=== PATIENT | male | born 1935 | race Caucasian/White ===

== ENCOUNTER 2017-09-28 07:50 | Day surgery (SDC) | payer OTHER, BC ==
[2017-09-27 11:11] VITALS: BMI 29.0
[~2017-09-28 07:50] MED LIST: LIDOCAINE HCL 2% JELLY 10 ML CARTRIDGE TP ONE
[2017-09-28] MEDS ORDERED: MIDAZOLAM HCL 2 MG/2 ML SINGLE DOSE VIAL ONE ×2 (10:32)
[2017-09-28] MEDS ORDERED: ALBUTEROL SO4 18 GM HFA INHALER IH ONE (10:32)
[2017-09-28] MEDS ORDERED: LEVOFLOXACIN 500 MG IVPB 500 MG/100 ML BAG IVPB ONE (10:44)
[2017-09-28] MEDS ORDERED: LEVOFLOXACIN 500 MG PREMIX BAG IVPB ONE (10:50)
--- NOTE | 2017-09-28 11:50 | OP ---
Operative Note - Note: Operative Date: 09/28/17 Pre-Operative Diagnosis: bladder tumor-overlapping sites Operation: TURBT Findings: multiple papillay tumors Post-Operative Diagnosis: Same as Pre-op Surgeon: Abran Gerardo Anesthesiologist/ELECTRICAL PROSPECTING SUPERVISOR: Sylvain Tan Anesthesia: Spinal Specimens Removed: bladder tumor Estimated Blood Loss (mls): 5 Operative Report Dictated: Yes
[2017-09-28] MEDS ORDERED: ONDANSETRON 4 MG/2 ML VIAL ONE (11:54)
[2017-09-28] MEDS ORDERED: ONDANSETRON 4 MG/2 ML VIAL IVPUSH PRN (11:59)
[2017-09-28] MEDS ORDERED: PROMETHAZINE HCL 25 MG/1 ML VIAL IVPUSH PRN (11:59)
[2017-09-28] MEDS ORDERED: LACTATED RINGERS SOLUTION 1,000 ML IV SCH (12:00)
[2017-09-28] MEDS ORDERED: ELECTROLYTE-148 SOLN 1,000 ML IV SCH (12:00)
[2017-09-28] MEDS ORDERED: oxyCODONE HCL 5 MG TABLET PO PRN (13:01)
--- NOTE | 2017-09-28 13:21 | OP ---
DATE OF OPERATION: 09/28/2017 PREOPERATIVE DIAGNOSIS: Malignant neoplasm of the bladder, overlapping sites. POSTOPERATIVE DIAGNOSIS: Malignant neoplasm of the bladder, overlapping sites. PROCEDURE: Transurethral resection of bladder tumor. SURGEON: Rocco Clarke MD INDICATION: The patient is an 82-year-old male who underwent cystoscopy for hematuria and was noted to have multiple bladder tumors in the bladder. After treatment options were reviewed, the patient elected to undergo TURBT. The risks, benefits and alternatives were discussed. DESCRIPTION OF PROCEDURE: The patient was taken to the OR and placed supine on the operating table. After cardiac monitoring had been administered, spinal anesthetic was then given. He was prepped and draped in the dorsal lithotomy position. A 26 sheath resectoscope was inserted into the urethra without difficulty. Anterior urethra normal. Prostatic urethra was 3 cm and visually occlusive status post TUR defect. The bladder was then visualized. There was one very large tumor on the posterior wall of the bladder and multiple small tumors on the anterior wall of the bladder. First, the large tumor was resected and then the base fulgurated. Then the other tumors were resected as well and their bases fulgurated. When all the tumor was resected, the chips were all removed with the Vetr evacuator and sent to Pathology for analysis. Repeat cystoscopy noted no evidence of any residual tumor. All bases of tumors were fulgurated, and there was no evidence of any active bleeding. Bilateral ureteral orifices were seen in their normal anatomic position. The resectoscope was then removed, and a 22-Turkish Manzanares was then placed to straight drainage. Pennock-tinged urine was retrieved. The patient was awakened from anesthesia and transferred to Recovery in stable condition. There were no complications. Estimated blood loss was 5 mL. ROCCO CLARKE M.D. [id number]
[2017-09-28 18:15] VITALS: BP 157/73; PULSE 78; TEMP 97.9
--- NOTE | 2017-09-29 11:46 | PATH ---
Surgical Pathology Report Patient Name: ADELE ROMERO [facility]. Rec. #: [id number] /Age/Gender: 1935 (Age: 82) / M Account: [id number] Location: [facility] SURGICAL Taken: 09/28/2017 Received: 09/28/2017 Reported: 09/29/2017 Physicians: Abran Gerardo M.D. Specimen(s) Received BLADDER TISSUE Clinical History Preoperative diagnosis: Malignant neoplasm of overlapping site Final Diagnosis BLADDER, TUR: NON-INVASIVE LOW GRADE PAPILLARY UROTHELIAL CARCINOMA. NO MUSCULARIS PROPRIA/DETRUSOR MUSCLE IDENTIFIED. NO FLAT UROTHELIAL CARCINOMA IN SITU IDENTIFIED. Electronically Signed Mook Vo M.D. Gross Description Received in formalin labeled "bladder tissue," is a 2.4 x 2.3 x 0.4 cm aggregate of luu soft tissue fragments. The formalin is filtered and the specimen is entirely submitted in one cassette. /09/28/2017 saudi09/28/2017
== END 2017-09-28 18:17 | disposition home or self-care (01) ==
LOC: JASU-SURG 07:50
PROVIDERS: ATTEND Urology
PROC: 0T5B8ZZ Destruction of Bladder, Via Natural or Artificial Opening Endoscopic (ICD-10-PCS; principal; 2017-09-28 09:30)
DX: C67.8 Malignant neoplasm of overlapping sites of bladder (principal)
CPT/HCPCS: 88307-TC; 94760

== ENCOUNTER 2018-01-25 18:51 | Inpatient (IN) | payer OTHER, BC ==
[2018-01-25] MEDS ORDERED: SODIUM CHLORIDE 1,000 ML IV STA (19:11)
--- NOTE | 2018-01-25 19:11 | PDOC ---
Rapid Medical Evaluation Time Seen by Provider: 01/25/18 18:59 Medical Evaluation: Allergies Allergy/AdvReac Type Severity Reaction Status Date / Time No Known Allergies Allergy Verified 01/25/18 18:57 01/25/18 18:59 Pt c/o: sob since 3 days, hx copd, subjective fever Pt on brief exam: febrile,, tachy, rhonchi to rt lower base Pt ordered for: sepsis w/u, Pt to proceed to the ED Discharge Disposition - Diagnosis Sepsis, COPD exacerbation - Referrals - Patient Instructions - Post Discharge Activity
[2018-01-25] MEDS ORDERED: ALBUTEROL SO4 2.5/IPRATROPIUM 0.5 INH SOL 3 ML VIAL.NEB. NEB ONE ×2 (19:13→19:32)
[2018-01-25] MEDS ORDERED: ACETAMINOPHEN 1000 MG/100 ML VIAL (NON FORMULARY) IVPB ONE (19:13)
[2018-01-25] MEDS ORDERED: ACETAMINOPHEN INJECTION 100 ML IVPB ONE (19:33)
[2018-01-25 19:40] LABS: BASO % 0.4 % (0-2.0); EOS % 0.3 % (0-4.5); HEMATOCRIT 45.6 % (35.4-49); HEMOGLOBIN 15.6 GM/dL (11.7-16.9); MCH 29.2 pg (25.7-33.7); MCHC 34.2 g/dl (32.0-35.9); MEAN CELL VOLUME 85.3 fl (80-96); MEAN PLT VOLUME 8.8 fl (7.5-11.1); MONO % 7.1 % (3.8-10.2); NEUT % 79.2 % (42.8-82.8); PLATELET COUNT 214 K/MM3 (134-434); RBC 5.35 M/mm3 (4.00-5.60); RDW 14.1 % (11.9-15.9)
[2018-01-25 19:46] LABS: VENOUS PC02 33.6 mmHg (38-52); VENOUS PH 7.44 (7.32-7.42); VENOUS PO2 47.1 mmHg (28-48)
[2018-01-25 19:57] LABS: INR 1.17 (0.82-1.09); PROTHROMBIN TIME (PATIENT) 13.2 SEC (9.7-13.0)
[2018-01-25 19:59] LABS: ACTIVATED PTT 31.9 SECONDS (26.9-34.4)
[2018-01-25 20:07] LABS: ALBUMIN 3.7 g/dl (3.4-5.0); ALK PHOS 74 U/L (45-117); ANION GAP 11 (8-16); BILIRUBIN,TOTAL 1.9 mg/dL (0.2-1.0); BLOOD UREA NITROGEN 14 mg/dL (7-18); CALCIUM 9.3 mg/dL (8.5-10.1); CHLORIDE 105 mmol/L (98-107); CO2 22 mmol/L (21-32); CREATININE 1.1 mg/dL (0.7-1.3); GLUCOSE,RANDOM 142 mg/dL (74-106); POTASSIUM 4.2 mmol/L (3.5-5.1); SGOT/AST 14 U/L (15-37); SGPT/ALT 16 U/L (12-78); SODIUM 138 mmol/L (136-145)
[2018-01-25] MEDS ORDERED: CEFTRIAXONE 1 GM in DEXTROSE 5%-WATER - 100 ML IVPB ONE (20:13)
[2018-01-25] MEDS ORDERED: AZITHROMYCIN IVPB 500 MG in DEXTROSE 5%-WATER - 250 ML IVPB ONE (20:13)
[2018-01-25] MEDS ORDERED: AZITHROMYCIN IVPB 250 ML IVPB ONE (20:28)
[2018-01-25] MEDS ORDERED: CEFTRIAXONE 1 GM/50 ML BAG ONE (20:28)
--- NOTE | 2018-01-25 20:58 | PDOC ---
History of Present Illness - General History Source: Patient Exam Limitations: No Limitations - History of Present Illness Initial Comments: 01/25/18 21:01 The patient is an 82 year old male with a significant past medical history of COPD (on oxygen at home), HLD, and bladder cancer who presents to the emergency department for evaluation of a 3 day history of COPD exacerbation. The patient reports worsening shortness of breath over the last 3 days. He reports associated symptoms of generalized weakness and fever. He reports he took spiriva and advair today with no alleviation. The patient admits to taking an old prescription of azithromycin (2 yesterday, 1 today). His daughter was concerned with his shortness of breath which prompted his visit to the ED. The patient denies chest pain, headache, and dizziness. Denies chills, nausea, vomiting, diarrhea, and constipation. Denies dysuria, frequency, urgency, and hematuria. Allergies: NKA Past surgical history: Hernia repair Social history: Former smoker 1994. Reported alcohol consumption. No reported drug use. PCP: Dr. Barton Pulm: Dr. Rogers <Mera Koo - Last Filed: 01/25/18 21:00> <Cecelia Alba - Last Filed: 01/25/18 21:35> - General Chief Complaint: Shortness of Breath Stated Complaint: SHORTNESS OF BREATH Time Seen by Provider: 01/25/18 18:59 Past History <Mera Koo - Last Filed: 01/25/18 21:00> - Past Medical History Anemia: No Asthma: No Cancer: Yes (BLADDER) Cardiac Disorders: No CVA: No COPD: Yes CHF: No Dementia: No Diabetes: No GI Disorders: No Disorders: No HTN: No Hypercholesterolemia: Yes Liver Disease: No Seizures: No Thyroid Disease: No - Surgical History Abdominal Surgery: Yes (HERNIA REPAIR) Appendectomy: Yes - Suicide/Smoking/Psychosocial Hx Smoking History: Former smoker Have you smoked in the past 12 months: No If you are a former smoker, when did you quit?: 1994 Information on smoking cessation initiated: No 'Breaking Loose' booklet given: 01/13/15 Hx Alcohol Use: No Drug/Substance Use Hx: No Substance Use Type: Alcohol Hx Substance Use Treatment: No <Cecelia Alba - Last Filed: 01/25/18 21:35> - Past Medical History Allergies/Adverse Reactions: Allergies Allergy/AdvReac Type Severity Reaction Status Date / Time No Known Allergies Allergy Verified 01/25/18 18:57 Home Medications: Ambulatory Orders Simvastatin [Zocor -] 40 mg PO HS 01/12/15 Tiotropium [place] [Spiriva] 1 inh PO DAILY 01/12/15 Fluticasone/Salmeterol [Advair 250-50 Diskus] 1 each IH BID 02/27/16 Review of Systems - Review of Systems Able to Perform ROS?: Yes Comments:: GENERAL/CONSTITUTIONAL: (+)Fever. (+)Weakness. No chills. HEAD, EYES, EARS, NOSE AND THROAT: No change in vision. No ear pain or discharge. No sore throat. GASTROINTESTINAL: No nausea, vomiting, diarrhea or constipation. GENITOURINARY: No dysuria, frequency, or change in urination. CARDIOVASCULAR: (+)Shortness of breath. No chest pain. RESPIRATORY: No cough, wheezing, or hemoptysis. MUSCULOSKELETAL: No joint or muscle swelling or pain. No neck or back pain. SKIN: No rash NEUROLOGIC: No headache, vertigo, loss of consciousness, or change in strength/ sensation. ENDOCRINE: No increased thirst. No abnormal weight change. HEMATOLOGIC/LYMPHATIC: No anemia, easy bleeding, or history of blood clots. ALLERGIC/IMMUNOLOGIC: No hives or skin allergy. <Mera Koo - Last Filed: 01/25/18 21:00> *Physical Exam - Vital Signs Last Vital Signs Temp Pulse Resp BP Pulse Ox 101.5 F H 112 H 30 H 132/73 91 L 01/25/18 18:57 01/25/18 18:57 01/25/18 18:57 01/25/18 18:57 01/25/18 18:57 - Physical Exam Comments: Constitutional: Awake, alert, oriented. No acute distress. Head: Normocephalic. Atraumatic Eyes: PERRL. EOMI. Conjunctivae are not pale. ENT: (+)Pharynx dry. (+)Mucous membranes dry, otherwise clear. Uvula midline. Neck: Supple. Full ROM. No lymphadenopathy. Cardiovascular: (+)Tachycardic. S1, S2 regular. Distal pulses are 2+ and symmetric. Pulmonary/Chest: (+) Tachypneic, conversational dyspnea. (+)Coarse breath sounds on right with wheezing. (+)Rhonchi in right base. (+)Mild respiratory distress. Abdominal: Soft and nondistended. There is no tenderness. No rebound, guarding or rigidity. No organomegaly. No palpable masses. Good bowel sounds. Back: No CVA tenderness. Musculoskeletal: No edema. No cyanosis. No clubbing. Full range of motion in all extremities. No calf tenderness. Radial/pedal pulses are intact and 2+ bilaterally Skin: (+)Hot to touch, dry. No petechiae. No purpura. Neurological: Alert and oriented to person, place, and time. Cranial nerves II -XII are grossly intact. Normal speech. Strength is grossly symmetric. No sensory deficits. Psychiatric: Good eye contact. Normal interaction, affect and behavior. <Mera Koo - Last Filed: 01/25/18 21:00> - Vital Signs Last Vital Signs Temp Pulse Resp BP Pulse Ox 101.5 F H 112 H 30 H 132/73 91 L 01/25/18 18:57 01/25/18 18:57 01/25/18 18:57 01/25/18 18:57 01/25/18 18:57 <Cecelia Alba - Last Filed: 01/25/18 21:35> Heart Score/ECG Review - ECG Intrepretation Comment:: 01/25/18 20:52 sinus tach at 111, nl axis, nl interval, mild st depression lateral leads without acute st elevations <Cecelia Alba - Last Filed: 01/25/18 21:35> ED Treatment Course - LABORATORY CBC & Chemistry Diagram: 01/25/18 19:30 01/25/18 19:30 - ADDITIONAL ORDERS Additional order review: Laboratory Results 01/25/18 01/25/18 01/25/18 19:30 19:30 19:30 PT with INR INR PTT (Actin FS) VBG pH POC VBG pCO2 POC VBG pO2 Mixed VBG HCO3 Sodium 138 Potassium 4.2 Chloride 105 Carbon Dioxide 22 Anion Gap 11 BUN 14 Creatinine 1.1 Creat Clearance w eGFR > 60 Random Glucose 142 H Lactic Acid 1.4 Calcium 9.3 Total Bilirubin 1.9 H D AST 14 L ALT 16 D Alkaline Phosphatase 74 D Troponin I < 0.02 Total Protein 7.0 Albumin 3.7 01/25/18 01/25/18 19:30 19:30 PT with INR 13.20 H INR 1.17 H PTT (Actin FS) 31.9 VBG pH 7.44 H POC VBG pCO2 33.6 L POC VBG pO2 47.1 Mixed VBG HCO3 22.2 Sodium Potassium Chloride Carbon Dioxide Anion Gap BUN Creatinine Creat Clearance w eGFR Random Glucose Lactic Acid Calcium Total Bilirubin AST ALT Alkaline Phosphatase Troponin I Total Protein Albumin 01/25/18 19:30 RBC 5.35 MCV 85.3 MCHC 34.2 RDW 14.1 MPV 8.8 Neutrophils % 79.2 D Lymphocytes % 13.0 D Monocytes % 7.1 Eosinophils % 0.3 D Basophils % 0.4 - Medications Given in the ED: ED Medications Discontinued Medications Generic Name Dose Route Start Last Admin Trade Name Freq PRN Reason Stop Dose Admin Acetaminophen 1,000 mg 01/25/18 19:13 01/25/18 19:49 Ofirmev Injection - IVPB 01/25/18 19:14 1,000 mg ONCE ONE Administration Albuterol/Ipratropium 1 amp 01/25/18 19:13 01/25/18 19:49 Duoneb - NEB 01/25/18 19:14 1 amp ONCE ONE Administration Sodium Chloride 1,000 mls @ 1,000 mls/hr 01/25/18 19:11 01/25/18 19:49 Normal Saline - IV 01/25/18 20:10 1,000 mls/hr ASDIR STA Administration Ceftriaxone Sodium 1 gm/ 100 mls @ 200 mls/hr 01/25/18 20:13 01/25/18 20:26 Dextrose IVPB 01/25/18 20:42 200 mls/hr ONCE ONE Administration Protocol <Mera Koo - Last Filed: 01/25/18 21:00> - LABORATORY CBC & Chemistry Diagram: 01/25/18 19:30 01/25/18 19:30 - ADDITIONAL ORDERS Additional order review: Laboratory Results 01/25/18 01/25/18 01/25/18 19:30 19:30 19:30 VBG pH POC VBG pCO2 POC VBG pO2 Mixed VBG HCO3 Sodium 138 Potassium 4.2 Chloride 105 Carbon Dioxide 22 Anion Gap 11 BUN 14 Creatinine 1.1 Creat Clearance w eGFR > 60 Random Glucose 142 H Lactic Acid 1.4 Calcium 9.3 Total Bilirubin 1.9 H D AST 14 L ALT 16 D Alkaline Phosphatase 74 D Troponin I < 0.02 Total Protein 7.0 Albumin 3.7 01/25/18 19:30 VBG pH 7.44 H POC VBG pCO2 33.6 L POC VBG pO2 47.1 Mixed VBG HCO3 22.2 Sodium Potassium Chloride Carbon Dioxide Anion Gap BUN Creatinine Creat Clearance w eGFR Random Glucose Lactic Acid Calcium Total Bilirubin AST ALT Alkaline Phosphatase Troponin I Total Protein Albumin 01/25/18 19:30 RBC 5.35 MCV 85.3 MCHC 34.2 RDW 14.1 MPV 8.8 Neutrophils % 79.2 D Lymphocytes % 13.0 D Monocytes % 7.1 Eosinophils % 0.3 D Basophils % 0.4 - Medications Given in the ED: ED Medications Discontinued Medications Generic Name Dose Route Start Last Admin Trade Name Freq PRN Reason Stop Dose Admin Acetaminophen 1,000 mg 01/25/18 19:13 01/25/18 19:49 Ofirmev Injection - IVPB 01/25/18 19:14 1,000 mg ONCE ONE Administration Albuterol/Ipratropium 1 amp 01/25/18 19:13 01/25/18 19:49 Duoneb - NEB 01/25/18 19:14 1 amp ONCE ONE Administration Sodium Chloride 1,000 mls @ 1,000 mls/hr 01/25/18 19:11 01/25/18 19:49 Normal Saline - IV 01/25/18 20:10 1,000 mls/hr ASDIR STA Administration Ceftriaxone Sodium 1 gm/ 100 mls @ 200 mls/hr 01/25/18 20:13 01/25/18 20:26 Dextrose IVPB 01/25/18 20:42 200 mls/hr ONCE ONE Administration Protocol <Cecelia Alba - Last Filed: 01/25/18 21:35> Medical Decision Making - Medical Decision Making 01/25/18 20:53 a/p: 82yo male from home with cough, fever, worsening sob since yesterday -used inhalers at home without relief - start azithro yesterday without change in symptoms -fever, rhonchi, resp distress, conversational dyspnea -labs, cultures, lactate ordered from [facility] -nebs running from [facility] will check cxr - will most likely need admission 01/25/18 20:58 pneumonia on cxr will start abx cultures sent dr. tse pmd - covered by [facility] microblog sent to [facility] will place consult to dr. rogers 01/25/18 21:34 case discussed with the IM resident case discussed with Dr. Johnson who accepts pt to service <Cecelia Alba - Last Filed: 01/25/18 21:35> *DC/Admit/Observation/Transfer - Attestations Scribe Attestion: Documentation prepared by Mera Koo, acting as certified medical coder for Cecelia Alba DO. <Mera Koo - Last Filed: 01/25/18 21:00> - Discharge Dispostion Decision to Admit order: Yes - Attestations Physician Attestion: 01/25/18 20:59 I, Dr. Cecelia Alba, DO, attest that this document has been prepared under my direction and personally reviewed by me in its entirety. I further attest, that it accurately reflects all work, treatment, procedures and medical decision -making performed by me. <Cecelia Alba - Last Filed: 01/25/18 21:35> Diagnosis at time of Disposition: Sepsis, COPD exacerbation, Pneumonia - Discharge Dispostion Condition at time of disposition: Guarded
[2018-01-25 21:15] LABS: URINE APPEARANCE CLEAR; URINE BILIRUBIN NEGATIVE (<2.0 mg/dL); URINE COLOR YELLOW; URINE GLUCOSE (UA) NEGATIVE (NEGATIVE); URINE KETONE NEGATIVE (NEGATIVE)
[2018-01-25 21:16] LABS: URINE LEUK ESTERASE NEGATIVE (NEGATIVE); URINE NITRITE NEGATIVE (NEGATIVE); URINE PROTEIN 1+ (NEGATIVE); URINE UROBILINOGEN NORMAL mg/dL (0.2-1.0)
[2018-01-25 21:19] LABS: EPI CELLS RARE /HPF (FEW); URINE MUCUS RARE
--- NOTE | 2018-01-25 21:20 | HP ---
CHIEF COMPLAINT: fever and shortness of breath PCP: Dr. Barton Scrap Sorter: Dr. Rogers Urologist: Dr. Conde HISTORY OF PRESENT ILLNESS: 82yo man with PMH of COPD (on home O2, but does not use regularly), HLD, and bladder cancer s/p TURBT 5mo ago who presents to ED at urging by daughter with fever and shortness of breath for past 2-3 days. Patient is poor historian. Patient reports generalized malaise, cough with productive white sputum, and increased shortness of breath at rest. He took his home Spiriva and Advair with no improvement. He also admitted to taking an old prescription of Azithromycin ( 2 doses yesterday, 1 dose today). Patient denies any recent sick contacts or hospitalizations. His last admission was here in 2016 for PNA. Denies any chest pain, chest discomfort, or palpitations. Denies any LE swelling. No nausea, vomiting, diarrhea or constipation. ER course was notable for: (1) VS: Tmax 101.5, HR 112, BP 132/73, RR 30, pSaO2 91% RA (2) s/p 1x SoluMedrol 125mg IV, Azithromycin, and Ceftriaxone 1gm (3) Recent Travel: denies PAST MEDICAL HISTORY: see HPI PAST SURGICAL HISTORY: Transurethral resection of bladder tumor (TURBT) - 09/28/[address] Conde Appendectomy L. Inguinal herniaplasty Social History: Lives alone, has support of local daughter Smoking: quit 1994, approximate 50pack year history Alcohol: none Drugs: none Family History: non-contributory Allergies: No Known Allergies Allergy (Verified 01/25/18 18:57) HOME MEDICATIONS: Home Medications Medication Instructions Recorded Simvastatin [Zocor -] 40 mg PO HS 01/12/15 Tiotropium [place] [Spiriva] 1 inh PO DAILY 01/12/15 Fluticasone/Salmeterol [Advair 1 each IH BID 02/27/16 250-50 Diskus] REVIEW OF SYSTEMS CONSTITUTIONAL: +fever, generalized weakness, malaise Absent: chills, diaphoresis, loss of appetite, weight change HEENT: Absent: rhinorrhea, nasal congestion, throat pain, throat swelling, difficulty swallowing, mouth swelling, ear pain, eye pain, visual changes CARDIOVASCULAR: Absent: chest pain, syncope, palpitations, irregular heart rate, lightheadedness , peripheral edema RESPIRATORY: +cough, shortness of breath Absent: dyspnea with exertion, orthopnea, wheezing, stridor, hemoptysis GASTROINTESTINAL: Absent: abdominal pain, abdominal distension, nausea, vomiting, diarrhea, constipation, melena, hematochezia GENITOURINARY: Absent: dysuria, frequency, urgency, hesitancy, hematuria, flank pain, genital pain MUSCULOSKELETAL: Absent: myalgia, arthralgia, joint swelling, back pain, neck pain SKIN: Absent: rash, itching, pallor HEMATOLOGIC/IMMUNOLOGIC: Absent: easy bleeding, easy bruising, lymphadenopathy, frequent infections ENDOCRINE: Absent: unexplained weight gain, unexplained weight loss, heat intolerance, cold intolerance NEUROLOGIC: Absent: headache, focal weakness or paresthesias, dizziness, unsteady gait, seizure, mental status changes, bladder or bowel incontinence PSYCHIATRIC: Absent: anxiety, depression, suicidal or homicidal ideation, hallucinations. PHYSICAL EXAMINATION Vital Signs - 24 hr 01/25/18 18:57 Temperature 101.5 F H Pulse Rate 112 H Respiratory 30 H Rate Blood Pressure 132/73 O2 Sat by Pulse 91 L Oximetry (%) GENERAL: aaox3, nad, no conversational dyspnea HEENT: PERRLA, EOMI, sclera anicteric, conjunctiva clear, pharynx without erythema, mmm NECK: supple, no nuchal rigidity LUNGS: +airway entry, course breath sounds R > L, bilateral expiratory wheezing , no accessory muscle use HEART: RRR, normal s1/s2, no m/r/g, no JVD ABDOMEN: soft, obese, NTND : No suprapubic or CVA ttp LOWER EXTREMITIES: 2+ DP pulses, wwp, no edema NEUROLOGICAL: Cranial nerves II-XII intact. Normal speech. CBC, BMP 01/25/18 19:30 01/25/18 19:30 Hepatic Panel Total Bilirubin 1.9 mg/dL (0.2-1.0) H D 01/25/18 19:30 AST 14 U/L (15-37) L 01/25/18 19:30 ALT 16 U/L (12-78) D 01/25/18 19:30 Alkaline Phosphatase 74 U/L (45-117) D 01/25/18 19: Albumin 3.7 g/dl (3.4-5.0) 01/25/18 19:30 EKG: Sinus tachycardia, rate 111, mild st depression lateral leads without acute st elevations. QTc 451 CXR: There are bilateral lower lung opacities, left more than right. There are right upper lobe sutures. No evidence of pulmonary vascular congestion or pleural effusion. There is no definable pneumothorax. Evaluation of the size of the cardiomediastinal silhouette is limited due to magnification from AP portable technique. There is aortic arch calcification. IMPRESSION: Bilateral lower lung airspace opacities are compatible with pneumonia in the appropriate clinical setting. Aspiration may considered. Active Medications Acetaminophen (Tylenol -) 650 mg PO Q6H PRN PRN Reason: PAIN 1-5 OR FEVER Albuterol Sulfate (Ventolin 0.083% Nebulizer Soln -) 1 amp NEB Q4H PRN PRN Reason: SHORT OF BREATH/WHEEZING Albuterol/Ipratropium (Duoneb -) 1 amp NEB RQID ROXANA Enoxaparin Sodium (Lovenox -) 40 mg SQ DAILY ROXANA Sodium Chloride (Normal Saline -) 1,000 mls @ 75 mls/hr IV ASDIR ROXANA Last Admin: 01/25/18 22:29 Dose: 75 mls/hr Azithromycin 500 mg/ Dextrose 250 mls @ 250 mls/hr IVPB DAILY ROXANA Ceftriaxone Sodium 1,000 mg/ (Dextrose) 50 mls @ 100 mls/hr IVPB DAILY ONE Stop: 01/26/18 20:29 Methylprednisolone Sodium Succinate (Solu-Medrol -) 40 mg IVPUSH BID [facility] ASSESSMENT/PLAN: 82yo man with PMH of COPD (on home O2, but does not use regularly), HLD, and bladder cancer s/p TURBT 5mo ago who presents to ED with fever and sob and found to be septic likely 2/2 PNA. #Sepsis 2/2 multilobar PNA, CAP vs aspiration -Pulmonology consulted -Check Urine PNA Ag -Check Urine, blood, and sputum cultures -C/w Ceftriazone and Azithromycin -Solumedrol 40mg IV BID -Duo nebs RQID + Ventolin Q4H PRN -IVF NS@75cc/hr -Tylenol PRN for fever or pain -O2 therapy to maintain pSaO2 > 90% #HLD - c/w home statin #FEN NS@75cc/hr lytes wnl Cardiac diet #PPX - lovenox #DISPO: m/s FULL code plan d/w Dr. Alex Rincon MD PGY1 - Internal Medicine, Night Build Master Visit type - Emergency Visit Emergency Visit: Yes ED Registration Date: 01/25/18 Care time: The patient presented to the Emergency Department on the above date and was hospitalized for further evaluation of their emergent condition. - New Patient This patient is new to me today: Yes Date on this admission: 01/26/18 - Critical Care Critical Care patient: No Hospitalist Screening - Colonoscopy Questionnaire Colonoscopy Questionnaire: Colonoscopy Questionnaire - Patient: 50 - 75 years old and never had a screening colonoscopy: No History of colon or rectal polyps, or CA: Unknown History of IBD, Crohn's disease or UC: Unknown History of abdominal radiation therapy as a child: Unknown - Relative: 1 with colon or rectal CA, or polyps at age 60 or younger: Unknown Colon or rectal CA diagnosed at age 45 or younger: Unknown Multiple relatives with colon or rectal CA: Unknown - Outcome: Screening Result: Negative Screen
[2018-01-25] MEDS ORDERED: ACETAMINOPHEN 325 MG TABLET (FP) PO PRN (22:08)
[2018-01-25] MEDS ORDERED: methylPREDNISolone NA SUCC 125 MG/2 ML VIAL IVPB ONE (22:14)
[2018-01-25] MEDS: SODIUM CHLORIDE 1,000 ML IV SCH (22:29)
[2018-01-25] MEDS ORDERED: methylPREDNISolone NA SUCC 125 MG/2 ML VIAL ONE (22:32)
[2018-01-26] MEDS ORDERED: methylPREDNISolone NA SUCC 125 MG/2 ML VIAL IVPB SCH (02:00)
--- NOTE | 2018-01-26 02:33 | PN ---
Teaching Attending Note Name of Resident: Raquel Rincon ATTENDING PHYSICIAN STATEMENT I saw and evaluated the patient. Chart, data, imaging reviewed. I reviewed the resident's note and discussed the case with the resident. I agree with the resident's findings and plan as documented. SUBJECTIVE: 82yo man with PMH of COPD (on home O2, but does not use regularly), former smoker, HLD, and bladder cancer s/p TURBT 5mo ago c/o sob, cough for the last 2 days. Found to have fever in er. +productive cough Intially wheezing on lung exam but improved. Denied any chest pain or history of cardiac failure. OBJECTIVE: Last Vital Signs Temp Pulse Resp BP Pulse Ox 101.5 F H 85 26 H 123/65 93 L 01/25/18 18:57 01/25/18 22:35 01/25/18 22:35 01/25/18 22:35 01/25/18 22:35 general- nad, aaox3 heent no scleral pallor , at neck -no lad cv-s1+s2+rrr chest - bibasilar ronchi r>l abdomen- nt, soft ext - no pedal edema Abnormal Lab Results 01/25/18 01/25/18 01/25/18 19:30 19:30 19:30 WBC 15.0 H D PT with INR 13.20 H INR 1.17 H VBG pH 7.44 H POC VBG pCO2 33.6 L Random Glucose Total Bilirubin AST Urine Protein 01/25/18 01/25/18 19:30 19:45 WBC PT with INR INR VBG pH POC VBG pCO2 Random Glucose 142 H Total Bilirubin 1.9 H D AST 14 L Urine Protein 1+ H cxr- reviewed bibasilar infiltrates ekg- sinus tachycardia, no acute ischemic changes seen ASSESSMENT AND PLAN: #82yo man with sepsis secondary to multilobar commmunity acquired pneumonia. + leukocytosis, fever. Hemodynamically stable for med/surg. Possible COPD exacerbation although, minimal to no wheezing on lung exam when i examined patient. -med/surg -azithromycin 500mg po daily -ceftriaxone 2g iv q24hrs hours -sputum for culture -blood cultures x2 -urine culture -urine legionella ag -nebs q6hrs -methylprednisone 40mg IV q12hrs -supplemental oxygen via nasal cannula - maintain 02 sat >90 -transthoracic echo to r/o cardiac dysfunction -continue home meds -heparin sc for dvt ppx
[2018-01-26 04:25] VITALS: BMI 30.7
[2018-01-26 07:35] LABS: HEMATOCRIT 44.3 % (35.4-49); HEMOGLOBIN 15.2 GM/dL (11.7-16.9); LYMPH % 8.4 % (8-40); MCHC 34.3 g/dl (32.0-35.9); MEAN CELL VOLUME 84.6 fl (80-96); MEAN PLT VOLUME 8.7 fl (7.5-11.1); NEUT % 90.6 % (42.8-82.8); PLATELET COUNT 179 K/MM3 (134-434); RBC 5.24 M/mm3 (4.00-5.60); RDW 14.3 % (11.9-15.9); WHITE BLOOD COUNT 9.2 K/mm3 (4.0-10.0)
[2018-01-26] MEDS: ALBUTEROL SO4 2.5/IPRATROPIUM 0.5 INH SOL 3 ML VIAL.NEB. NEB SCH ×2 (07:35→11:14)
[2018-01-26 09:03] LABS: ALBUMIN 3.3 g/dl (3.4-5.0); ANION GAP 9 (8-16); BILIRUBIN,DIRECT 0.3 mg/dL (0.0-0.2); BLOOD UREA NITROGEN 14 mg/dL (7-18); CALCIUM 8.5 mg/dL (8.5-10.1); CHLORIDE 109 mmol/L (98-107); CO2 23 mmol/L (21-32); CREATININE 0.9 mg/dL (0.7-1.3); GLUCOSE,RANDOM 160 mg/dL (74-106); POTASSIUM 4.6 mmol/L (3.5-5.1); SGOT/AST 9 U/L (15-37); SGPT/ALT 15 U/L (12-78); SODIUM 141 mmol/L (136-145)
[2018-01-26 09:06] LABS: ALK PHOS 67 U/L (45-117); BILIRUBIN,TOTAL 1.1 mg/dL (0.2-1.0); TOT PROT 6.7 g/dl (6.4-8.2)
[2018-01-26] MEDS ORDERED: PT OWN MED DRAWER 7, Y5N ONE ×2 (09:10→20:25)
[2018-01-26] MEDS: ENOXAPARIN NA (PORCINE) 40 MG/0.4 ML DISP.SYRIN SQ SCH (09:15)
[2018-01-26] MEDS: methylPREDNISolone NA SUCC 40 MG/1 ML VIAL IVPUSH SCH ×2 (09:15→22:00)
--- NOTE | 2018-01-26 09:42 | EKG ---
Test Reason : Blood Pressure : / mmHG Vent. Rate : 111 BPM Atrial Rate : 111 BPM P-R Int : 154 ms QRS Dur : 094 ms QT Int : 332 ms P-R-T Axes : 063 075 041 degrees QTc Int : 451 ms SINUS TACHYCARDIA WITH PREMATURE SUPRAVENTRICULAR COMPLEXES NONSPECIFIC ST ABNORMALITY ABNORMAL ECG WHEN COMPARED WITH ECG OF 27-FEB-2016 16:24, PREMATURE SUPRAVENTRICULAR COMPLEXES ARE NOW PRESENT Confirmed by MEAGHAN MURRAY MD ([id number]) on 01/26/2018 9:41:54 AM Referred By: Confirmed By:MEAGHAN MURRAY MD
[2018-01-26] MEDS: BUDESONIDE/FORMETEROL FUMARATE 80/4.5 mcg INHALER IH SCH ×2 (12:01→21:35)
--- NOTE | 2018-01-26 12:07 | PN ---
Progress Note (short form) - Note Progress Note: PULMONARY CONSULTATION DICTATED 01/26/18 IMP BILATERAL PNEUMONIA ADVANCE COPD O2 DEPENDENT WITH EXACERBATION MEDIASTINAL ADENOPATHY LIKELY REACTIVE PULMONARY NODULE STABLE BLADDER CA PLAN ABX INHALED BRONCHODILATORS MEDROL O2 SPUTUM C+S LEGIONELLA URINARY ANTIGEN F/U CHEST CT 4-[address] BROWNLEE Problem List - Problems (1) Bilateral pneumonia Code(s): J18.9 - PNEUMONIA, UNSPECIFIED ORGANISM (2) COPD exacerbation Code(s): J44.1 - CHRONIC OBSTRUCTIVE PULMONARY DISEASE W (ACUTE) EXACERBATION (3) Pneumonia Code(s): J18.9 - PNEUMONIA, UNSPECIFIED ORGANISM (4) Cough Code(s): R05 - COUGH (5) Pulmonary nodule Code(s): R91.1 - SOLITARY PULMONARY NODULE (6) Mediastinal adenopathy Code(s): R59.0 - LOCALIZED ENLARGED LYMPH NODES (7) Bladder cancer Code(s): C67.9 - MALIGNANT NEOPLASM OF BLADDER, UNSPECIFIED (8) Fever Code(s): R50.9 - FEVER, UNSPECIFIED
--- NOTE | 2018-01-26 13:39 | CONS ---
DATE OF CONSULTATION: 01/26/2018 REFERRING PHYSICIAN: Cj Goodman MD HISTORY: The patient is an 82-year-old white male known to me from previous hospitalizations as well as office follow up with past medical history of COPD on home O2 not fully compliant, hyperlipidemia, recently diagnosed bladder cancer status post TURP months ago admitted to [facility] with a complaint of a 2- to 3-day history of increasing shortness of breath, cough, and chest congestion. The patient states that he was home for the past couple of days. He had chills, generalized malaise, and coughed up yellow sputum minimally blood tinged. He denied any chest pain, nausea, vomiting, or diaphoresis. At home he took his inhaled bronchodilators, Advair, and Spiriva without any improvement. He apparently took 2 doses of Zithromax, which he had at home. The patient presented to the emergency room as above. In the ER, he had a chest CT performed, which revealed COPD and new patchy infiltrates and upper and lower lobes suspicious for acute pneumonia. The patient was started on broad-spectrum antibiotics. Of note, the patient's most recent chest ct revealed evidence of sub-carinal lymphadenopathy, which is new from previous exam of March 16. Of note, the patient had been followed for a pulmonary nodule in the left lower lobe, which has been unchanged almost 2 years. The patient has a history of smoking and quit years ago. There is no history of recent travel. There is no history of DVT or PE in the past. There is no occupational exposure to chemicals or fumes. He was born in [place] and moved to the [place] many years ago. PAST MEDICAL HISTORY: Again, includes recently diagnosed bladder cancer, COPD on home O2 not fully compliant, hyperlipidemia. REVIEW OF SYSTEMS: Positive cough, positive weakness, positive fever, positive chills, positive sputum production. Questionable hemoptysis. Shortness of breath. No abdominal pain. No lower extremity edema. CURRENT MEDICATIONS: Includes Symbicort 80/4.5, Solu-Medrol 40 b.i.d., Zithromax, ceftriaxone, Lovenox, albuterol, DuoNeb, normal saline, and Lipitor. PHYSICAL EXAMINATION: General: The patient is a well-developed, well-nourished male awake and alert in no acute distress. Vital Signs: He is afebrile. Blood pressure 160/88, respiratory rate 20, O2 saturation 92% on room air. HEENT: Normocephalic and atraumatic. Neck: Supple. Heart: Regular S1, S2. Chest: Bilateral crackles. Abdomen: Soft. Bowel sounds positive. Extremities: No cyanosis or edema. LABORATORIES: WBC initially 15, currently 9.2, hemoglobin 15.2, hematocrit 44.3 with platelet count 179,000 with 90 polys, 8 lymphocytes, and 1 monocytes. INR 1.17. Venous blood gas: PH 7.44, PCO2 of 33, PO2 of 47. Chemistries: BUN 14, creatinine 0.9, bilirubin 1.1. BNP is 109. Lactate 1.4. Chest CT, again, bilateral upper lobe infiltrates as well as lower lobe infiltrates. There is a stable nodule in the left lower lobe. IMPRESSION: 1. Bilateral pneumonia community acquired. 2. Mediastinal adenopathy likely reactive. 3. History of pulmonary nodules radiographically stable. 4. Recently diagnosed bladder cancer. 5. Advanced chronic obstructive pulmonary disease on home O2. 6. Chronic hypoxemia. PLAN: IV antibiotics. Inhaled bronchodilators. Steroids. Supplemental O2. Obtain follow up chest CT in 4-6 weeks to document resolution of infiltrates as well as mediastinal adenopathy. Obtain cultures. Serum for cold agglutinin, Legionella urinary antigen. MARGARITA BROWNLEE M.D. [id number] MTDD
[2018-01-26] MEDS: TIOTROPIUM BROMIDE 18 MCG CAPSULES IH SCH (14:33)
[2018-01-26] MEDS: ALBUTEROL SO4 0.083% IH SOL 2.5 MG/3 ML VIAL.NEB. NEB PRN ×2 (16:04→21:01)
--- NOTE | 2018-01-26 17:50 | PN ---
Teaching Attending Note Name of Resident: Cristo Solano ATTENDING PHYSICIAN STATEMENT I saw and evaluated the patient. I reviewed the resident's note and discussed the case with the resident. I agree with the resident's findings and plan as documented with exceptions below. SUBJECTIVE: Patient seen and examined. breathing improved, no new complaints. OBJECTIVE: Vital Signs Period Temp Pulse Resp BP Sys/Sandhu Pulse Ox Last 24 Hr 97.4 F-101.5 F 83-112 20-30 123-160/65-88 90-94 Intake & Output 01/23/18 01/24/18 01/25/18 01/26/18 23:59 23:59 23:59 23:59 Intake Total 900 Balance 900 Weight 180 lb 184 lb 6.4 oz General: ambulating in room, no acute distress Chest: distant breath sounds consistent with emphysema, few bibasilar rales, no wheezing appreciated Extremities: no edema Home Medication List Medication Instructions Recorded Confirmed Type Simvastatin [Zocor -] 40 mg PO HS 01/12/15 01/25/18 History Tiotropium [place] [Spiriva] 1 inh PO DAILY 01/12/15 01/25/18 History Fluticasone/Salmeterol [Advair 1 each IH BID 02/27/16 01/25/18 History 250-50 Diskus] Active Medications Generic Name Dose Route Start Last Admin Trade Name Freq PRN Reason Stop Dose Admin Acetaminophen 650 mg 01/25/18 22:08 Tylenol - PO Q6H PRN PAIN 1-5 OR FEVER Albuterol Sulfate 1 amp 01/25/18 22:02 01/26/18 16:04 Ventolin 0.083% Nebulizer Soln - NEB 1 amp Q4H PRN Administration SHORT OF BREATH/WHEEZING Atorvastatin Calcium 20 mg 01/26/18 22:00 Lipitor - PO HS ROXANA Budesonide/Formoterol Fumarate 2 puff 01/26/18 10:00 01/26/18 12:01 Symbicort 80/4.5mcg - IH 2 puff BID ROXANA Administration Enoxaparin Sodium 40 mg 01/26/18 10:00 01/26/18 09:15 Lovenox - SQ 40 mg DAILY ROXANA Administration Sodium Chloride 1,000 mls @ 75 mls/hr 01/25/18 22:15 01/25/18 22:29 Normal Saline - IV 75 mls/hr ASDIR ROXANA Administration Azithromycin 500 mg/ Dextrose 250 mls @ 250 mls/hr 01/26/18 20:00 IVPB DAILY@2000 [facility] Ceftriaxone Sodium 1 gm/ 50 mls @ 100 mls/hr 01/26/18 21:00 Dextrose IVPB DAILY@2100 [facility] Methylprednisolone Sodium Succinate 40 mg 01/26/18 10:00 01/26/18 09:15 Solu-Medrol - IVPUSH 40 mg BID ROXANA Administration Tiotropium [place] 1 puff 01/26/18 12:15 01/26/18 14:33 Spiriva - IH 1 puff DAILY ROXANA Administration Laboratory Results - last 24 hr 01/25/18 01/25/18 01/25/18 19:30 19:30 19:30 WBC 15.0 H D RBC 5.35 Hgb 15.6 Hct 45.6 MCV 85.3 MCH 29.2 MCHC 34.2 RDW 14.1 Plt Count 214 MPV 8.8 Neutrophils % 79.2 D Lymphocytes % 13.0 D Monocytes % 7.1 Eosinophils % 0.3 D Basophils % 0.4 PT with INR 13.20 H INR 1.17 H PTT (Actin FS) 31.9 VBG pH 7.44 H POC VBG pCO2 33.6 L POC VBG pO2 47.1 Mixed VBG HCO3 22.2 Sodium Potassium Chloride Carbon Dioxide Anion Gap BUN Creatinine Creat Clearance w eGFR Random Glucose Lactic Acid Calcium Total Bilirubin Direct Bilirubin AST ALT Alkaline Phosphatase Troponin I B-Natriuretic Peptide Total Protein Albumin Urine Color Urine Appearance Urine pH Ur Specific [place] Urine Protein Urine Glucose (UA) Urine Ketones Urine Blood Urine Nitrite Urine Bilirubin Urine Urobilinogen Ur Leukocyte Esterase Urine WBC (Auto) Urine RBC (Auto) Ur Epithelial Cells Urine Mucus 01/25/18 01/25/18 01/25/18 19:30 19:30 19:30 WBC RBC Hgb Hct MCV MCH MCHC RDW Plt Count MPV Neutrophils % Lymphocytes % Monocytes % Eosinophils % Basophils % PT with INR INR PTT (Actin FS) VBG pH POC VBG pCO2 POC VBG pO2 Mixed VBG HCO3 Sodium 138 Potassium 4.2 Chloride 105 Carbon Dioxide 22 Anion Gap 11 BUN 14 Creatinine 1.1 Creat Clearance w eGFR > 60 Random Glucose 142 H Lactic Acid 1.4 Calcium 9.3 Total Bilirubin 1.9 H D Direct Bilirubin AST 14 L ALT 16 D Alkaline Phosphatase 74 D Troponin I < 0.02 B-Natriuretic Peptide Total Protein 7.0 Albumin 3.7 Urine Color Urine Appearance Urine pH Ur Specific [place] Urine Protein Urine Glucose (UA) Urine Ketones Urine Blood Urine Nitrite Urine Bilirubin Urine Urobilinogen Ur Leukocyte Esterase Urine WBC (Auto) Urine RBC (Auto) Ur Epithelial Cells Urine Mucus 01/25/18 01/25/18 01/25/18 19:45 19:45 21:30 WBC RBC Hgb Hct MCV MCH MCHC RDW Plt Count MPV Neutrophils % Lymphocytes % Monocytes % Eosinophils % Basophils % PT with INR INR PTT (Actin FS) VBG pH POC VBG pCO2 POC VBG pO2 Mixed VBG HCO3 Sodium Potassium Chloride Carbon Dioxide Anion Gap BUN Creatinine Creat Clearance w eGFR Random Glucose Lactic Acid Calcium Total Bilirubin Direct Bilirubin AST ALT Alkaline Phosphatase Troponin I B-Natriuretic Peptide 109.08 Total Protein Albumin Urine Color Yellow Cancelled Urine Appearance Clear Cancelled Urine pH 5.0 D Cancelled Ur Specific [place] 1.015 Cancelled Urine Protein 1+ H Cancelled Urine Glucose (UA) Negative Cancelled Urine Ketones Negative Cancelled Urine Blood Large Cancelled Urine Nitrite Negative Cancelled Urine Bilirubin Negative Cancelled Urine Urobilinogen Normal Cancelled Ur Leukocyte Esterase Negative Cancelled Urine WBC (Auto) 10 Urine RBC (Auto) 32 Ur Epithelial Cells Rare Urine Mucus Rare 01/26/18 01/26/18 01/26/18 07:14 07:14 07:14 WBC 9.2 D RBC 5.24 Hgb 15.2 Hct 44.3 MCV 84.6 MCH 29.0 MCHC 34.3 RDW 14.3 Plt Count 179 MPV 8.7 Neutrophils % 90.6 H Lymphocytes % 8.4 D Monocytes % 1.0 L D Eosinophils % 0.0 D Basophils % 0.0 PT with INR INR PTT (Actin FS) VBG pH POC VBG pCO2 POC VBG pO2 Mixed VBG HCO3 Sodium 141 Potassium 4.6 Chloride 109 H Carbon Dioxide 23 Anion Gap 9 BUN 14 Creatinine 0.9 Creat Clearance w eGFR Random Glucose 160 H Lactic Acid Calcium 8.5 Total Bilirubin 1.1 H D Cancelled Direct Bilirubin 0.3 H D Cancelled AST 9 L D Cancelled ALT 15 Cancelled Alkaline Phosphatase 67 Cancelled Troponin I B-Natriuretic Peptide Total Protein 6.7 Cancelled Albumin 3.3 L Cancelled Urine Color Urine Appearance Urine pH Ur Specific [place] Urine Protein Urine Glucose (UA) Urine Ketones Urine Blood Urine Nitrite Urine Bilirubin Urine Urobilinogen Ur Leukocyte Esterase Urine WBC (Auto) Urine RBC (Auto) Ur Epithelial Cells Urine Mucus Ct chest results reviewed ASSESSMENT AND PLAN: 82 yom with PMHx of COPD (on home O2, but does not use regularly), HLD, and bladder cancer s/p TURBT 5mo ago, comes with bibasilar CAP with sepsis -Bibasilar CAP with sepsis -Mild Acute COPD exacerbation -HLD -Bladder cancer s/p TURBT 5 months ago Plan: Ceftriaxone/azithromycin day 2, blood/sputum cx. PNA studies neg so far. Pulmonary input noted. Solumedrol. nebs/o2 suppl. Pre and post ambulatory saturations noted. Patient has home oxygen. Continue statin. DVTPPx lovenox Dispo pending clinical improvement. Plan for home with PT in 24-48 hours if continues to improve. Plan discussed with patient and all questions answered.
--- NOTE | 2018-01-26 18:09 | PN ---
Physical Exam: SUBJECTIVE: Patient seen and examined at bedside. Pt feels relatively well. States his coughing is improving. No other complaints. OBJECTIVE: Vital Signs Period Temp Pulse Resp BP Sys/Sandhu Pulse Ox Last 24 Hr 97.4 F-101.5 F 83-112 20-30 123-160/65-88 90-94 GENERAL: The patient is awake, alert, and fully oriented, in no acute distress. HEAD: Normal with no signs of trauma. EYES: sclera anicteric, conjunctiva clear. No ptosis. ENT:oropharynx clear without exudates, moist mucous membranes. NECK: Trachea midline, full range of motion, supple. LUNGS: bibasilar crackles HEART: Regular rate and rhythm, S1, S2 without murmur, rub or gallop. ABDOMEN: Soft, nontender, nondistended, normoactive bowel sounds, no guarding, no rebound, no hepatosplenomegaly, no masses. EXTREMITIES: 2+ pulses, warm, well-perfused, no edema. NEUROLOGICAL: Cranial nerves II through XII grossly intact. Normal speech, gait not observed. PSYCH: Normal mood, normal affect. SKIN: Warm, dry, normal turgor, no rashes or lesions noted Laboratory Results - last 24 hr 01/25/18 01/25/18 01/25/18 19:30 19:30 19:30 WBC 15.0 H D RBC 5.35 Hgb 15.6 Hct 45.6 MCV 85.3 MCH 29.2 MCHC 34.2 RDW 14.1 Plt Count 214 MPV 8.8 Neutrophils % 79.2 D Lymphocytes % 13.0 D Monocytes % 7.1 Eosinophils % 0.3 D Basophils % 0.4 PT with INR 13.20 H INR 1.17 H PTT (Actin FS) 31.9 VBG pH 7.44 H POC VBG pCO2 33.6 L POC VBG pO2 47.1 Mixed VBG HCO3 22.2 Sodium Potassium Chloride Carbon Dioxide Anion Gap BUN Creatinine Creat Clearance w eGFR Random Glucose Lactic Acid Calcium Total Bilirubin Direct Bilirubin AST ALT Alkaline Phosphatase Troponin I B-Natriuretic Peptide Total Protein Albumin Urine Color Urine Appearance Urine pH Ur Specific [place] Urine Protein Urine Glucose (UA) Urine Ketones Urine Blood Urine Nitrite Urine Bilirubin Urine Urobilinogen Ur Leukocyte Esterase Urine WBC (Auto) Urine RBC (Auto) Ur Epithelial Cells Urine Mucus 01/25/18 01/25/1801/25/18 19:30 19:30 19:30 WBC RBC Hgb Hct MCV MCH MCHC RDW Plt Count MPV Neutrophils % Lymphocytes % Monocytes % Eosinophils % Basophils % PT with INR INR PTT (Actin FS) VBG pH POC VBG pCO2 POC VBG pO2 Mixed VBG HCO3 Sodium 138 Potassium 4.2 Chloride 105 Carbon Dioxide 22 Anion Gap 11 BUN 14 Creatinine 1.1 Creat Clearance w eGFR > 60 Random Glucose 142 H Lactic Acid 1.4 Calcium 9.3 Total Bilirubin 1.9 H D Direct Bilirubin AST 14 L ALT 16 D Alkaline Phosphatase 74 D Troponin I < 0.02 B-Natriuretic Peptide Total Protein 7.0 Albumin 3.7 Urine Color Urine Appearance Urine pH Ur Specific [place] Urine Protein Urine Glucose (UA) Urine Ketones Urine Blood Urine Nitrite Urine Bilirubin Urine Urobilinogen Ur Leukocyte Esterase Urine WBC (Auto) Urine RBC (Auto) Ur Epithelial Cells Urine Mucus 01/25/18 01/25/18 01/25/18 19:45 19:45 21:30 WBC RBC Hgb Hct MCV MCH MCHC RDW Plt Count MPV Neutrophils % Lymphocytes % Monocytes % Eosinophils % Basophils % PT with INR INR PTT (Actin FS) VBG pH POC VBG pCO2 POC VBG pO2 Mixed VBG HCO3 Sodium Potassium Chloride Carbon Dioxide Anion Gap BUN Creatinine Creat Clearance w eGFR Random Glucose Lactic Acid Calcium Total Bilirubin Direct Bilirubin AST ALT Alkaline Phosphatase Troponin I B-Natriuretic Peptide 109.08 Total Protein Albumin Urine Color Yellow Cancelled Urine Appearance Clear Cancelled Urine pH 5.0 D Cancelled Ur Specific [place] 1.015 Cancelled Urine Protein 1+ H Cancelled Urine Glucose (UA) Negative Cancelled Urine Ketones Negative Cancelled Urine Blood Large Cancelled Urine Nitrite Negative Cancelled Urine Bilirubin Negative Cancelled Urine Urobilinogen Normal Cancelled Ur Leukocyte Esterase Negative Cancelled Urine WBC (Auto) 10 Urine RBC (Auto) 32 Ur Epithelial Cells Rare Urine Mucus Rare 01/26/18 01/26/18 01/26/18 07:14 07:14 07:14 WBC 9.2 D RBC 5.24 Hgb 15.2 Hct 44.3 MCV 84.6 MCH 29.0 MCHC 34.3 RDW 14.3 Plt Count 179 MPV 8.7 Neutrophils % 90.6 H Lymphocytes % 8.4 D Monocytes % 1.0 L D Eosinophils % 0.0 D Basophils % 0.0 PT with INR INR PTT (Actin FS) VBG pH POC VBG pCO2 POC VBG pO2 Mixed VBG HCO3 Sodium 141 Potassium 4.6 Chloride 109 H Carbon Dioxide 23 Anion Gap 9 BUN 14 Creatinine 0.9 Creat Clearance w eGFR Random Glucose 160 H Lactic Acid Calcium 8.5 Total Bilirubin 1.1 H D Cancelled Direct Bilirubin 0.3 H D Cancelled AST 9 L D Cancelled ALT 15 Cancelled Alkaline Phosphatase 67 Cancelled Troponin I B-Natriuretic Peptide Total Protein 6.7 Cancelled Albumin 3.3 L Cancelled Urine Color Urine Appearance Urine pH Ur Specific [place] Urine Protein Urine Glucose (UA) Urine Ketones Urine Blood Urine Nitrite Urine Bilirubin Urine Urobilinogen Ur Leukocyte Esterase Urine WBC (Auto) Urine RBC (Auto) Ur Epithelial Cells Urine Mucus Active Medications Generic Name Dose Route Start Last Admin Trade Name Freq PRN Reason Stop Dose Admin Acetaminophen 650 mg 01/25/18 22:08 Tylenol - PO Q6H PRN PAIN 1-5 OR FEVER Albuterol Sulfate 1 amp 01/25/18 22:02 01/26/18 16:04 Ventolin 0.083% Nebulizer Soln - NEB 1 amp Q4H PRN Administration SHORT OF BREATH/WHEEZING Atorvastatin Calcium 20 mg 01/26/18 22:00 Lipitor - PO HS ROXANA Budesonide/Formoterol Fumarate 2 puff 01/26/18 10:00 01/26/18 12:01 Symbicort 80/4.5mcg - IH 2 puff BID ROXANA Administration Enoxaparin Sodium 40 mg 01/26/18 10:00 01/26/18 09:15 Lovenox - SQ 40 mg DAILY ROXANA Administration Sodium Chloride 1,000 mls @ 75 mls/hr 01/25/18 22:15 01/25/18 22:29 Normal Saline - IV 75 mls/hr ASDIR ROXANA Administration Azithromycin 500 mg/ Dextrose 250 mls @ 250 mls/hr 01/26/18 20:00 IVPB DAILY@2000 ROXANA Ceftriaxone Sodium 1 gm/ 50 mls @ 100 mls/hr 01/26/18 21:00 Dextrose IVPB DAILY@2100 [facility] Methylprednisolone Sodium Succinate 40 mg 01/26/18 10:00 01/26/18 09:15 Solu-Medrol - IVPUSH 40 mg BID ROXANA Administration Tiotropium [place] 1 puff 01/26/18 12:15 01/26/18 14:33 Spiriva - IH 1 puff DAILY ROXANA Administration ASSESSMENT/PLAN: 82yo man with PMH of COPD (on home O2, but does not use regularly), HLD, and bladder cancer s/p TURBT 5mo ago who presents to ED with fever and sob and found to be septic likely 2/2 PNA. #Sepsis 2/2 multilobar PNA -Cough w/ white sputum -fever 101 in ED -U Ag's, BCx -Azithro, Roceph day 1 -Solumedrol -Nebs -NS -O2 #HLD -Lipitor #FEN -NS @ 75 -lytes wnl -Cardiac diet #PPx -Lovenox #Dispo -Admitted for PNA -possible D/C tomorrow Cristo Solano MD PGY-1 IM Visit type - Emergency Visit Emergency Visit: No - New Patient This patient is new to me today: No - Critical Care Critical Care patient: No
[2018-01-26] MEDS ORDERED: DEXTROSE 5%-WATER - 50 ML IVPB ONE (20:25)
[2018-01-26] MEDS ORDERED: cefTRIAXone SODIUM 1 GM VIAL ONE (20:25)
[2018-01-26] MEDS: AZITHROMYCIN IVPB 500 MG in DEXTROSE 5%-WATER - 250 ML IVPB SCH (20:30)
[2018-01-26] MEDS: ATORVASTATIN CA 20 MG TABLET (FP) PO SCH (21:34)
[2018-01-26] MEDS: CEFTRIAXONE 1 GM in DEXTROSE 5%-WATER - 50 ML IVPB SCH (21:59)
[2018-01-27 07:17] LABS: BASO % 0.1 % (0-2.0); HEMATOCRIT 43.2 % (35.4-49); LYMPH % 7.9 % (8-40); MCH 29.6 pg (25.7-33.7); MCHC 34.7 g/dl (32.0-35.9); MEAN CELL VOLUME 85.4 fl (80-96); MEAN PLT VOLUME 9.1 fl (7.5-11.1); MONO % 2.9 % (3.8-10.2); NEUT % 89.1 % (42.8-82.8); PLATELET COUNT 212 K/MM3 (134-434); RBC 5.06 M/mm3 (4.00-5.60); WHITE BLOOD COUNT 12.1 K/mm3 (4.0-10.0)
[2018-01-27 07:44] LABS: ALBUMIN 3.1 g/dl (3.4-5.0); ANION GAP 9 (8-16); BLOOD UREA NITROGEN 18 mg/dL (7-18); CALCIUM 8.2 mg/dL (8.5-10.1); CHLORIDE 110 mmol/L (98-107); CO2 22 mmol/L (21-32); CREATININE 0.9 mg/dL (0.7-1.3); GLUCOSE,RANDOM 140 mg/dL (74-106); POTASSIUM 4.4 mmol/L (3.5-5.1); SGOT/AST 15 U/L (15-37); SGPT/ALT 17 U/L (12-78); SODIUM 141 mmol/L (136-145)
[2018-01-27 07:46] LABS: ALK PHOS 62 U/L (45-117); BILIRUBIN,TOTAL 0.6 mg/dL (0.2-1.0); TOT PROT 6.5 g/dl (6.4-8.2)
--- NOTE | 2018-01-27 09:27 | PN ---
Teaching Attending Note Name of Resident: Cj Goodman SUBJECTIVE: Patient seen and examined, breathing continues to improve, no new complaints. OBJECTIVE: Vital Signs Period Temp Pulse Resp BP Sys/Sandhu Pulse Ox Last 24 Hr 97.3 F-97.6 F 84-113 18-22 125-160/69-88 90-92 Intake & Output 01/24/18 01/25/18 01/26/18 01/27/18 23:59 23:59 23:59 23:59 Intake Total 1388 525 Balance 1388 525 Weight 180 lb 184 lb 6.4 oz General: sitting in chair no acute distress Chest: decreased air entry all over with scattered wheezing L>R Abdomen: soft, NT Extremities: no edema Home Medication List Medication Instructions Recorded Confirmed Type Simvastatin [Zocor -] 40 mg PO HS 01/12/15 01/25/18 History Tiotropium [place] [Spiriva] 1 inh PO DAILY 01/12/15 01/25/18 History Fluticasone/Salmeterol [Advair 1 each IH BID 02/27/16 01/25/18 History 250-50 Diskus] Active Medications Generic Name Dose Route Start Last Admin Trade Name Freq PRN Reason Stop Dose Admin Acetaminophen 650 mg 01/25/18 22:08 Tylenol - PO Q6H PRN PAIN 1-5 OR FEVER Albuterol Sulfate 1 amp 01/25/18 22:02 01/26/18 21:01 Ventolin 0.083% Nebulizer Soln - NEB 1 amp Q4H PRN Administration SHORT OF BREATH/WHEEZING Atorvastatin Calcium 20 mg 01/26/18 22:00 01/26/18 21:34 Lipitor - PO 20 mg HS ROXANA Administration Budesonide/Formoterol Fumarate 2 puff 01/26/18 10:00 01/26/18 21:35 Symbicort 80/4.5mcg - IH 2 puff BID ROXANA Administration Enoxaparin Sodium 40 mg 01/26/18 10:00 01/26/18 09:15 Lovenox - SQ 40 mg DAILY ROXANA Administration Sodium Chloride 1,000 mls @ 75 mls/hr 01/25/18 22:15 01/25/18 22:29 Normal Saline - IV 75 mls/hr ASDIR ROXANA Administration Azithromycin 500 mg/ Dextrose 250 mls @ 250 mls/hr 01/26/18 20:00 01/26/18 20 :30 IVPB 250 mls/hr DAILY@2000 ROX[facility] Administration Ceftriaxone Sodium 1 gm/ 50 mls @ 100 mls/hr 01/26/18 21:00 01/26/18 21:59 Dextrose IVPB 100 mls/hr DAILY@2100 ROX[facility] Administration Methylprednisolone Sodium Succinate 40 mg 01/26/18 10:00 01/26/18 22:00 Solu-Medrol - IVPUSH 40 mg BID ROXANA Administration Tiotropium [place] 1 puff 01/26/18 12:15 01/26/18 14:33 Spiriva - IH 1 puff DAILY ROXANA Administration Laboratory Results - last 24 hr 01/27/18 01/27/18 06:49 06:49 WBC 12.1 H D RBC 5.06 Hgb 15.0 Hct 43.2 MCV 85.4 MCH 29.6 MCHC 34.7 RDW 14.0 Plt Count 212 MPV 9.1 Neutrophils % 89.1 H Lymphocytes % 7.9 L Monocytes % 2.9 L D Eosinophils % 0.0 Basophils % 0.1 D Sodium 141 Potassium 4.4 Chloride 110 H Carbon Dioxide 22 Anion Gap 9 BUN 18 D Creatinine 0.9 Creat Clearance w eGFR > 60 Random Glucose 140 H Calcium 8.2 L Total Bilirubin 0.6 D AST 15 D ALT 17 Alkaline Phosphatase 62 Total Protein 6.5 Albumin 3.1 L Microbiology 01/25/18 19:45 Urine - Urine Clean Catch Urine Culture - Final NO GROWTH OBTAINED 01/25/18 19:30 Blood - Peripheral Venous Blood Culture - Preliminary NO GROWTH OBTAINED AFTER 24 HOURS, INCUBATION TO CONTINUE FOR 4 DAYS. 01/25/18 19:30 Blood - Peripheral Venous Blood Culture - Preliminary NO GROWTH OBTAINED AFTER 24 HOURS, INCUBATION TO CONTINUE FOR 4 DAYS. 01/26/18 05:50 Urine For Antigen Detection Legionella Antigen - Final 01/26/18 05:50 Urine For Antigen Detection Streptococcus pneumoniae Antigen (M - Final ASSESSMENT AND PLAN: 82 yom with PMHx of COPD (on home O2, but does not use regularly), HLD, and bladder cancer s/p TURBT 5mo ago, comes with bibasilar CAP with sepsis -Bibasilar CAP with sepsis -Mild Acute COPD exacerbation -HLD -Bladder cancer s/p TURBT 5 months ago Plan: Ceftriaxone/azithromycin day 3, follow up blood/sputum cx. PNA studies neg so far. Pulmonary input noted. Solumedrol. nebs/o2 suppl. COntinue IV steroids for now Pre and post ambulatory saturations noted. Patient has home oxygen. Continue statin. DVTPPx lovenox Dispo pending clinical improvement. Plan for home with PT in 24-48 hours if continues to improve. Plan discussed with patient and all questions answered.
[2018-01-27] MEDS: TIOTROPIUM BROMIDE 18 MCG CAPSULES IH SCH (09:29)
[2018-01-27] MEDS: methylPREDNISolone NA SUCC 40 MG/1 ML VIAL IVPUSH SCH ×2 (09:29→21:27)
[2018-01-27] MEDS: ENOXAPARIN NA (PORCINE) 40 MG/0.4 ML DISP.SYRIN SQ SCH (09:29)
[2018-01-27] MEDS: BUDESONIDE/FORMETEROL FUMARATE 80/4.5 mcg INHALER IH SCH ×2 (09:30→21:25)
--- NOTE | 2018-01-27 13:45 | PN ---
Progress Note (short form) - Note Progress Note: Still with some congested cough, but improving. No CP. No acute events overnight. Intake & Output 01/24/18 01/25/18 01/26/18 01/27/18 23:59 23:59 23:59 23:59 Intake Total 1388 765 Balance 1388 765 Weight 180 lb 184 lb 6.4 oz Last Vital Signs Temp Pulse Resp BP Pulse Ox 97.5 F L 89 23 142/87 95 01/27/18 09:27 01/27/18 09:27 01/27/18 09:27 01/27/18 09:27 01/27/18 09:00 Active Medications Acetaminophen (Tylenol -) 650 mg PO Q6H PRN PRN Reason: PAIN 1-5 OR FEVER Albuterol Sulfate (Ventolin 0.083% Nebulizer Soln -) 1 amp NEB Q4H PRN PRN Reason: SHORT OF BREATH/WHEEZING Last Admin: 01/26/18 21:01 Dose: 1 amp Atorvastatin Calcium (Lipitor -) 20 mg PO HS [facility] Last Admin: 01/26/18 21:34 Dose: 20 mg Budesonide/Formoterol Fumarate (Symbicort 80/4.5mcg -) 2 puff IH BID [facility] Last Admin: 01/27/18 09:30 Dose: 2 puff Enoxaparin Sodium (Lovenox -) 40 mg SQ DAILY [facility] Last Admin: 01/27/18 09:29 Dose: 40 mg Sodium Chloride (Normal Saline -) 1,000 mls @ 75 mls/hr IV ASDIR [facility] Last Admin: 01/25/18 22:29 Dose: 75 mls/hr Azithromycin 500 mg/ Dextrose 250 mls @ 250 mls/hr IVPB DAILY@2000 [facility] Last Admin: 01/26/18 20:30 Dose: 250 mls/hr Ceftriaxone Sodium 1 gm/ (Dextrose) 50 mls @ 100 mls/hr IVPB DAILY@2100 [facility] Last Admin: 01/26/18 21:59 Dose: 100 mls/hr Methylprednisolone Sodium Succinate (Solu-Medrol -) 40 mg IVPUSH BID [facility] Last Admin: 01/27/18 09:29 Dose: 40 mg Tiotropium [place] (Spiriva -) 1 puff IH DAILY [facility] Last Admin: 01/27/18 09:29 Dose: 1 puff GENERAL: NAD HEAD: Normal with no signs of trauma. EYES: sclera anicteric, conjunctiva clear. No ptosis. ENT:oropharynx clear without exudates, moist mucous membranes. NECK: Trachea midline, full range of motion, supple. LUNGS: bibasilar crackles/rhonchi HEART: Regular rate and rhythm, S1, S2 without murmur, rub or gallop. ABDOMEN: Soft, nontender, nondistended, normoactive bowel sounds, no guarding, no rebound, no hepatosplenomegaly, no masses. EXTREMITIES: 2+ pulses, warm, well-perfused, no edema. NEUROLOGICAL: non-focal PSYCH: Normal mood, normal affect. SKIN: Warm, dry, normal turgor, no rashes or lesions noted Laboratory Results - last 24 hr 01/27/18 01/27/18 06:49 06:49 WBC 12.1 H D RBC 5.06 Hgb 15.0 Hct 43.2 MCV 85.4 MCH 29.6 MCHC 34.7 RDW 14.0 Plt Count 212 MPV 9.1 Neutrophils % 89.1 H Lymphocytes % 7.9 L Monocytes % 2.9 L D Eosinophils % 0.0 Basophils % 0.1 D Sodium 141 Potassium 4.4 Chloride 110 H Carbon Dioxide 22 Anion Gap 9 BUN 18 D Creatinine 0.9 Creat Clearance w eGFR > 60 Random Glucose 140 H Calcium 8.2 L Total Bilirubin 0.6 D AST 15 D ALT 17 Alkaline Phosphatase 62 Total Protein 6.5 Albumin 3.1 L Problem List - Problems (1) Bilateral pneumonia Code(s): J18.9 - PNEUMONIA, UNSPECIFIED ORGANISM (2) COPD exacerbation Code(s): J44.1 - CHRONIC OBSTRUCTIVE PULMONARY DISEASE W (ACUTE) EXACERBATION (3) Pneumonia Code(s): J18.9 - PNEUMONIA, UNSPECIFIED ORGANISM (4) Cough Code(s): R05 - COUGH (5) Pulmonary nodule Code(s): R91.1 - SOLITARY PULMONARY NODULE (6) Mediastinal adenopathy Code(s): R59.0 - LOCALIZED ENLARGED LYMPH NODES (7) Bladder cancer Code(s): C67.9 - MALIGNANT NEOPLASM OF BLADDER, UNSPECIFIED (8) Fever Code(s): R50.9 - FEVER, UNSPECIFIED IMP BILATERAL PNEUMONIA ADVANCE COPD O2 DEPENDENT WITH EXACERBATION MEDIASTINAL ADENOPATHY LIKELY REACTIVE PULMONARY NODULE STABLE BLADDER CA PLAN ABX INHALED BRONCHODILATORS MEDROL O2 F/U CHEST CT 4-[address] Rascon
[2018-01-27] MEDS ORDERED: cefTRIAXone SODIUM 1 GM VIAL ONE (19:53)
[2018-01-27] MEDS ORDERED: DEXTROSE 5%-WATER - 50 ML IVPB ONE (19:53)
[2018-01-27] MEDS ORDERED: PT OWN MED DRAWER 7, Y5N ONE (19:53)
[2018-01-27] MEDS: AZITHROMYCIN IVPB 500 MG in DEXTROSE 5%-WATER - 250 ML IVPB SCH (19:58)
[2018-01-27] MEDS: ATORVASTATIN CA 20 MG TABLET (FP) PO SCH (21:25)
[2018-01-27] MEDS: CEFTRIAXONE 1 GM in DEXTROSE 5%-WATER - 50 ML IVPB SCH (21:26)
[2018-01-27] MEDS: SODIUM CHLORIDE 1,000 ML IV SCH (21:32)
[2018-01-28 07:41] LABS: HEMATOCRIT 41.2 % (35.4-49); HEMOGLOBIN 14.3 GM/dL (11.7-16.9); MCH 29.5 pg (25.7-33.7); MCHC 34.8 g/dl (32.0-35.9); MEAN CELL VOLUME 84.9 fl (80-96); MEAN PLT VOLUME 8.8 fl (7.5-11.1); MONO % 2.9 % (3.8-10.2); NEUT % 86.1 % (42.8-82.8); PLATELET COUNT 222 K/MM3 (134-434); RBC 4.85 M/mm3 (4.00-5.60); RDW 14.3 % (11.9-15.9)
[2018-01-28 07:44] LABS: ANION GAP 6 (8-16); BLOOD UREA NITROGEN 21 mg/dL (7-18); CHLORIDE 110 mmol/L (98-107); CO2 27 mmol/L (21-32); GLUCOSE,RANDOM 123 mg/dL (74-106); MAGNESIUM 2.3 mg/dL (1.8-2.4); PHOSPHOROUS 4.1 mg/dL (2.5-4.9); SODIUM 143 mmol/L (136-145)
[2018-01-28] MEDS: TIOTROPIUM BROMIDE 18 MCG CAPSULES IH SCH (09:10)
[2018-01-28] MEDS: ENOXAPARIN NA (PORCINE) 40 MG/0.4 ML DISP.SYRIN SQ SCH (09:10)
[2018-01-28] MEDS: methylPREDNISolone NA SUCC 40 MG/1 ML VIAL IVPUSH SCH ×2 (09:11→21:17)
[2018-01-28] MEDS: BUDESONIDE/FORMETEROL FUMARATE 80/4.5 mcg INHALER IH SCH ×2 (09:11→21:17)
--- NOTE | 2018-01-28 13:20 | PN ---
Progress Note (short form) - Note Progress Note: Still with some congested cough. Breathing feels about the same. No CP. No acute events overnight. Intake & Output 01/25/18 01/26/18 01/27/18 01/28/18 23:59 23:59 23:59 23:59 Intake Total 1388 2645 1535 Output Total 250 900 Balance 1388 2395 635 Weight 180 lb 184 lb 6.4 oz Last Vital Signs Temp Pulse Resp BP Pulse Ox 97.6 F 78 20 145/90 95 01/28/18 12:00 01/28/18 12:00 01/28/18 12:00 01/28/18 12:00 01/28/18 08:34 Active Medications Acetaminophen (Tylenol -) 650 mg PO Q6H PRN PRN Reason: PAIN 1-5 OR FEVER Albuterol Sulfate (Ventolin 0.083% Nebulizer Soln -) 1 amp NEB Q4H PRN PRN Reason: SHORT OF BREATH/WHEEZING Last Admin: 01/26/18 21:01 Dose: 1 amp Atorvastatin Calcium (Lipitor -) 20 mg PO HS [facility] Last Admin: 01/27/18 21:25 Dose: 20 mg Budesonide/Formoterol Fumarate (Symbicort 80/4.5mcg -) 2 puff IH BID [facility] Last Admin: 01/28/18 09:11 Dose: 2 puff Enoxaparin Sodium (Lovenox -) 40 mg SQ DAILY [facility] Last Admin: 01/28/18 09:10 Dose: 40 mg Azithromycin 500 mg/ Dextrose 250 mls @ 250 mls/hr IVPB DAILY@2000 [facility] Last Admin: 01/27/18 19:58 Dose: 250 mls/hr Ceftriaxone Sodium 1 gm/ (Dextrose) 50 mls @ 100 mls/hr IVPB DAILY@2100 [facility] Last Admin: 01/27/18 21:26 Dose: 100 mls/hr Methylprednisolone Sodium Succinate (Solu-Medrol -) 40 mg IVPUSH BID [facility] Last Admin: 01/28/18 09:11 Dose: 40 mg Tiotropium [place] (Spiriva -) 1 puff IH DAILY [facility] Last Admin: 01/28/18 09:10 Dose: 1 puff GENERAL: NAD HEAD: Normal with no signs of trauma. EYES: sclera anicteric, conjunctiva clear. No ptosis. ENT:oropharynx clear without exudates, moist mucous membranes. NECK: Trachea midline, full range of motion, supple. LUNGS: bibasilar crackles/rhonchi HEART: Regular rate and rhythm, S1, S2 without murmur, rub or gallop. ABDOMEN: Soft, nontender, nondistended, normoactive bowel sounds, no guarding, no rebound, no hepatosplenomegaly, no masses. EXTREMITIES: 2+ pulses, warm, well-perfused, no edema. NEUROLOGICAL: non-focal PSYCH: Normal mood, normal affect. SKIN: Warm, dry, normal turgor, no rashes or lesions noted Laboratory Results - last 24 hr 01/28/18 01/28/18 06:50 06:50 WBC 9.0 RBC 4.85 Hgb 14.3 Hct 41.2 MCV 84.9 MCH 29.5 MCHC 34.8 RDW 14.3 Plt Count 222 MPV 8.8 Neutrophils % 86.1 H Lymphocytes % 11.0 D Monocytes % 2.9 L Eosinophils % 0.0 Basophils % 0.0 Sodium 143 Potassium 5.0 Chloride 110 H Carbon Dioxide 27 D Anion Gap 6 L BUN 21 H Creatinine 1.0 Random Glucose 123 H Calcium 8.0 L Phosphorus 4.1 D Magnesium 2.3 Problem List - Problems (1) Bilateral pneumonia Code(s): J18.9 - PNEUMONIA, UNSPECIFIED ORGANISM (2) COPD exacerbation Code(s): J44.1 - CHRONIC OBSTRUCTIVE PULMONARY DISEASE W (ACUTE) EXACERBATION (3) Pneumonia Code(s): J18.9 - PNEUMONIA, UNSPECIFIED ORGANISM (4) Cough Code(s): R05 - COUGH (5) Pulmonary nodule Code(s): R91.1 - SOLITARY PULMONARY NODULE (6) Mediastinal adenopathy Code(s): R59.0 - LOCALIZED ENLARGED LYMPH NODES (7) Bladder cancer Code(s): C67.9 - MALIGNANT NEOPLASM OF BLADDER, UNSPECIFIED (8) Fever Code(s): R50.9 - FEVER, UNSPECIFIED IMP BILATERAL PNEUMONIA ADVANCE COPD O2 DEPENDENT WITH EXACERBATION MEDIASTINAL ADENOPATHY LIKELY REACTIVE PULMONARY NODULE STABLE BLADDER CA PLAN ABX INHALED BRONCHODILATORS MEDROL O2 F/U CHEST CT 4-[address] Rascon
--- NOTE | 2018-01-28 14:05 | PN ---
Teaching Attending Note Name of Resident: Cj Goodman SUBJECTIVE: patient seen and examined, breathing overall the same, no new complaints. OBJECTIVE: Vital Signs Period Temp Pulse Resp BP Sys/Sandhu Pulse Ox Last 24 Hr 97.4 F-98 F 78-91 18-22 144-154/74-91 95-95 Intake & Output 01/25/18 01/26/18 01/27/18 01/28/18 23:59 23:59 23:59 23:59 Intake Total 1388 2645 1535 Output Total 250 900 Balance 1388 2395 635 Weight 180 lb 184 lb 6.4 oz General: lying in bed, mildly dyspneic Chest: distant breath sounds, no wheezing Extremities: 1+ pitting pedal edema Abdomen:soft, NT, ND Home Medication List Medication Instructions Recorded Confirmed Type Simvastatin [Zocor -] 40 mg PO HS 01/12/15 01/25/18 History Tiotropium [place] [Spiriva] 1 inh PO DAILY 01/12/15 01/25/18 History Fluticasone/Salmeterol [Advair 1 each IH BID 02/27/16 01/25/18 History 250-50 Diskus] Active Medications Generic Name Dose Route Start Last Admin Trade Name Freq PRN Reason Stop Dose Admin Acetaminophen 650 mg 01/25/18 22:08 Tylenol - PO Q6H PRN PAIN 1-5 OR FEVER Albuterol Sulfate 1 amp 01/25/18 22:02 01/26/18 21:01 Ventolin 0.083% Nebulizer Soln - NEB 1 amp Q4H PRN Administration SHORT OF BREATH/WHEEZING Atorvastatin Calcium 20 mg 01/26/18 22:00 01/27/18 21:25 Lipitor - PO 20 mg HS ROXANA Administration Budesonide/Formoterol Fumarate 2 puff 01/26/18 10:00 01/28/18 09:11 Symbicort 80/4.5mcg - IH 2 puff BID ROXANA Administration Enoxaparin Sodium 40 mg 01/26/18 10:00 01/28/18 09:10 Lovenox - SQ 40 mg DAILY ROXANA Administration Azithromycin 500 mg/ Dextrose 250 mls @ 250 mls/hr 01/26/18 20:00 01/27/18 19 :58 IVPB 250 mls/hr DAILY@1999 ROXANA Administration Ceftriaxone Sodium 1 gm/ 50 mls @ 100 mls/hr 01/26/18 21:00 01/27/18 21:26 Dextrose IVPB 100 mls/hr DAILY@2100 ROXANA Administration Methylprednisolone Sodium Succinate 40 mg 01/26/18 10:00 01/28/18 09:11 Solu-Medrol - IVPUSH 40 mg BID ROXANA Administration Tiotropium [place] 1 puff 01/26/18 12:15 01/28/18 09:10 Spiriva - IH 1 puff DAILY ROXANA Administration Laboratory Results - last 24 hr 01/28/18 01/28/18 06:50 06:50 WBC 9.0 RBC 4.85 Hgb 14.3 Hct 41.2 MCV 84.9 MCH 29.5 MCHC 34.8 RDW 14.3 Plt Count 222 MPV 8.8 Neutrophils % 86.1 H Lymphocytes % 11.0 D Monocytes % 2.9 L Eosinophils % 0.0 Basophils % 0.0 Sodium 143 Potassium 5.0 Chloride 110 H Carbon Dioxide 27 D Anion Gap 6 L BUN 21 H Creatinine 1.0 Random Glucose 123 H Calcium 8.0 L Phosphorus 4.1 D Magnesium 2.3 Microbiology 01/26/18 10:40 Sputum - Expectorated Gram Stain - Final 01/26/18 10:40 Sputum - Expectorated Sputum Culture - Preliminary NORMAL RESPIRATORY CARLOS 01/25/18 19:30 Blood - Peripheral Venous Blood Culture - Preliminary NO GROWTH OBTAINED AFTER 48 HOURS, INCUBATION TO CONTINUE FOR 3 DAYS. 01/25/18 19:30 Blood - Peripheral Venous Blood Culture - Preliminary NO GROWTH OBTAINED AFTER 48 HOURS, INCUBATION TO CONTINUE FOR 3 DAYS. 01/25/18 19:45 Urine - Urine Clean Catch Urine Culture - Final NO GROWTH OBTAINED 01/26/18 05:50 Urine For Antigen Detection Legionella Antigen - Final 01/26/18 05:50 Urine For Antigen Detection Streptococcus pneumoniae Antigen (M - Final ASSESSMENT AND PLAN: 82 yom with PMHx of COPD (on home O2, but does not use regularly), HLD, and bladder cancer s/p TURBT 5mo ago, comes with bibasilar CAP with sepsis -Bibasilar CAP with sepsis -Mild Acute COPD exacerbation -HLD -Bladder cancer s/p TURBT 5 months ago Plan: Mildly dyspneic today, d/c IVF, repeat CXr. COntinue IV solumedrol. Nebs/O2 supplprn. Ceftriaxone/azithromycin day 4, follow up blood/sputum cx. PNA studies neg so far. Pre and post ambulatory saturations noted. Patient has home oxygen. Continue statin. DVTPPx lovenox Dispo pending clinical improvement. Plan for home with PT in 24 hours if continues to improve. Plan discussed with patient and all questions answered.
[2018-01-28] MEDS ORDERED: cefTRIAXone SODIUM 1 GM VIAL ONE (20:12)
[2018-01-28] MEDS ORDERED: DEXTROSE 5%-WATER - 50 ML IVPB ONE (20:13)
[2018-01-28] MEDS ORDERED: PT OWN MED DRAWER 7, Y5N ONE (20:14)
[2018-01-28] MEDS: AZITHROMYCIN IVPB 500 MG in DEXTROSE 5%-WATER - 250 ML IVPB SCH (21:14)
[2018-01-28] MEDS: CEFTRIAXONE 1 GM in DEXTROSE 5%-WATER - 50 ML IVPB SCH (21:16)
[2018-01-28] MEDS: ATORVASTATIN CA 20 MG TABLET (FP) PO SCH (21:17)
--- NOTE | 2018-01-29 08:32 | PN ---
Teaching Attending Note Name of Resident: Cristo Solano ATTENDING PHYSICIAN STATEMENT I saw and evaluated the patient. I reviewed the resident's note and discussed the case with the resident. I agree with the resident's findings and plan as documented with exceptions below. SUBJECTIVE: Patient seen and examined. breathing continues to improve, no complaints. OBJECTIVE: Vital Signs Period Temp Pulse Resp BP Sys/Sandhu Pulse Ox Last 24 Hr 97.3 F-98.4 F 68-94 18-22 128-158/54-97 95-97 Intake & Output 01/26/18 01/27/18 01/28/18 01/29/18 23:59 23:59 23:59 23:59 Intake Total 1388 2645 2605 Output Total 250 1300 Balance 1388 2395 1305 Weight 184 lb 6.4 oz General: ambulating in hallway with PT, no concerns Chest: imrpoved air entry, no wheezing today Extremities: trace pedal edema, improved Home Medication List Medication Instructions Recorded Confirmed Type Simvastatin [Zocor -] 40 mg PO HS 01/12/15 01/25/18 History Tiotropium [place] [Spiriva] 1 inh PO DAILY 01/12/15 01/25/18 History Fluticasone/Salmeterol [Advair 1 each IH BID 02/27/16 01/25/18 History 250-50 Diskus] Active Medications Generic Name Dose Route Start Last Admin Trade Name Freq PRN Reason Stop Dose Admin Acetaminophen 650 mg 01/25/18 22:08 Tylenol - PO Q6H PRN PAIN 1-5 OR FEVER Albuterol Sulfate 1 amp 01/25/18 22:02 01/26/18 21:01 Ventolin 0.083% Nebulizer Soln - NEB 1 amp Q4H PRN Administration SHORT OF BREATH/WHEEZING Atorvastatin Calcium 20 mg 01/26/18 22:00 01/28/18 21:17 Lipitor - PO 20 mg HS ROXANA Administration Budesonide/Formoterol Fumarate 2 puff 01/26/18 10:00 01/28/18 21:17 Symbicort 80/4.5mcg - IH 2 puff BID ROXANA Administration Enoxaparin Sodium 40 mg 01/26/18 10:00 01/28/18 09:10 Lovenox - SQ 40 mg DAILY ROXANA Administration Azithromycin 500 mg/ Dextrose 250 mls @ 250 mls/hr 01/26/18 20:00 01/28/18 21 :14 IVPB 250 mls/hr DAILY@2000 ROXANA Administration Ceftriaxone Sodium 1 gm/ 50 mls @ 100 mls/hr 01/26/18 21:00 01/28/18 21:16 Dextrose IVPB 100 mls/hr DAILY@2100 ROXANA Administration Prednisone 60 mg 01/29/18 10:00 Deltasone - PO DAILY [facility] Tiotropium [place] 1 puff 01/26/18 12:15 01/28/18 09:10 Spiriva - IH 1 puff DAILY ROXANA Administration Microbiology 01/25/18 19:30 Blood - Peripheral Venous Blood Culture - Preliminary NO GROWTH OBTAINED AFTER 72 HOURS, INCUBATION TO CONTINUE FOR 2 DAYS. 01/25/18 19:30 Blood - Peripheral Venous Blood Culture - Preliminary NO GROWTH OBTAINED AFTER 72 HOURS, INCUBATION TO CONTINUE FOR 2 DAYS. 01/26/18 10:40 Sputum - Expectorated Gram Stain - Final 01/26/18 10:40 Sputum - Expectorated Sputum Culture - Preliminary NORMAL RESPIRATORY CARLOS 01/25/18 19:45 Urine - Urine Clean Catch Urine Culture - Final NO GROWTH OBTAINED 01/26/18 05:50 Urine For Antigen Detection Legionella Antigen - Final 01/26/18 05:50 Urine For Antigen Detection Streptococcus pneumoniae Antigen (M - Final ASSESSMENT AND PLAN: 82 yom with PMHx of COPD (on home O2, but does not use regularly), HLD, and bladder cancer s/p TURBT 5mo ago, comes with bibasilar CAP with sepsis -Bibasilar CAP with sepsis -Mild Acute COPD exacerbation -HLD -Bladder cancer s/p TURBT 5 months ago Plan: Improving, Ceftriaxone/azithromycin day 5, blood cx neg so far. PNA studies neg so far. Transition to cefuroxime/azithromycin. Pre and post ambulatory sats noted. Prednisone PO taper. Patient has home oxygen , to use with activity. OUtpatient CT chest in 4-6 weeks. Continue statin. DVTPPx lovenox Dispo home with PT and home oxygen today. Plan discussed with patient and all questions answered.
[2018-01-29] MEDS ORDERED: predniSONE 20 MG TABLET (UD) PO SCH (10:00)
[2018-01-29] MEDS: TIOTROPIUM BROMIDE 18 MCG CAPSULES IH SCH (10:07)
[2018-01-29] MEDS: ENOXAPARIN NA (PORCINE) 40 MG/0.4 ML DISP.SYRIN SQ SCH (10:07)
[2018-01-29] MEDS: BUDESONIDE/FORMETEROL FUMARATE 80/4.5 mcg INHALER IH SCH (10:08)
--- NOTE | 2018-01-29 10:39 | PN ---
Progress Note, Physician History of Present Illness: pulmonary alert,feeling better,less congestion - Current Medication List Current Medications: Active Medications Acetaminophen (Tylenol -) 650 mg PO Q6H PRN PRN Reason: PAIN 1-5 OR FEVER Albuterol Sulfate (Ventolin 0.083% Nebulizer Soln -) 1 amp NEB Q4H PRN PRN Reason: SHORT OF BREATH/WHEEZING Last Admin: 01/26/18 21:01 Dose: 1 amp Atorvastatin Calcium (Lipitor -) 20 mg PO HS [facility] Last Admin: 01/28/18 21:17 Dose: 20 mg Budesonide/Formoterol Fumarate (Symbicort 80/4.5mcg -) 2 puff IH BID [facility] Last Admin: 01/29/18 10:08 Dose: 2 puff Enoxaparin Sodium (Lovenox -) 40 mg SQ DAILY [facility] Last Admin: 01/29/18 10:07 Dose: 40 mg Azithromycin 500 mg/ Dextrose 250 mls @ 250 mls/hr IVPB DAILY@2000 [facility] Last Admin: 01/28/18 21:14 Dose: 250 mls/hr Ceftriaxone Sodium 1 gm/ (Dextrose) 50 mls @ 100 mls/hr IVPB DAILY@2100 [facility] Last Admin: 01/28/18 21:16 Dose: 100 mls/hr Prednisone (Deltasone -) 60 mg PO DAILY [facility] Last Admin: 01/29/18 10:07 Dose: 60 mg Tiotropium [place] (Spiriva -) 1 puff IH DAILY [facility] Last Admin: 01/29/18 10:07 Dose: 1 puff - Objective Vital Signs: Vital Signs Temperature 97.5 F L 01/29/18 08:08 Pulse Rate 77 01/29/18 08:08 Respiratory Rate 20 01/29/18 08:08 Blood Pressure 146/97 01/29/18 08:08 O2 Sat by Pulse Oximetry (%) 96 01/29/18 08:08 Constitutional: Yes: Well Nourished, Calm Eyes: Yes: WNL HENT: Yes: WNL Neck: Yes: WNL Cardiovascular: Yes: Regular Rate and Rhythm, S1, S2 Respiratory: Yes: Rales (bibasilar crackles), Rhonchi (few rhonchi) Gastrointestinal: Yes: Normal Bowel Sounds, Soft Extremities: Yes: WNL Edema: No Labs: CBC, BMP Problem List - Problems (1) Bilateral pneumonia Code(s): J18.9 - PNEUMONIA, UNSPECIFIED ORGANISM (2) COPD exacerbation Code(s): J44.1 - CHRONIC OBSTRUCTIVE PULMONARY DISEASE W (ACUTE) EXACERBATION (3) Pneumonia Code(s): J18.9 - PNEUMONIA, UNSPECIFIED ORGANISM (4) Cough Code(s): R05 - COUGH (5) Pulmonary nodule Code(s): R91.1 - SOLITARY PULMONARY NODULE (6) Mediastinal adenopathy Code(s): R59.0 - LOCALIZED ENLARGED LYMPH NODES (7) Bladder cancer Code(s): C67.9 - MALIGNANT NEOPLASM OF BLADDER, UNSPECIFIED (8) Fever Code(s): R50.9 - FEVER, UNSPECIFIED Assessment/Plan IMP BILATERAL PNEUMONIA ADVANCE COPD O2 DEPENDENT WITH EXACERBATION MEDIASTINAL ADENOPATHY LIKELY REACTIVE PULMONARY NODULE STABLE BLADDER CA PLAN ABX INHALED BRONCHODILATORS PREDNISONE O2 F/U CHEST CT 4-[address] BROWNLEE Problem List - Problems (1) Bilateral pneumonia Code(s): J18.9 - PNEUMONIA, UNSPECIFIED ORGANISM (2) COPD exacerbation Code(s): J44.1 - CHRONIC OBSTRUCTIVE PULMONARY DISEASE W (ACUTE) EXACERBATION (3) Pneumonia Code(s): J18.9 - PNEUMONIA, UNSPECIFIED ORGANISM (4) Cough Code(s): R05 - COUGH (5) Pulmonary nodule Code(s): R91.1 - SOLITARY PULMONARY NODULE (6) Mediastinal adenopathy Code(s): R59.0 - LOCALIZED ENLARGED LYMPH NODES (7) Bladder cancer Code(s): C67.9 - MALIGNANT NEOPLASM OF BLADDER, UNSPECIFIED (8) Fever Code(s): R50.9 - FEVER, UNSPECIFIED
--- NOTE | 2018-01-29 13:03 | DS ---
Physical Exam: SUBJECTIVE: Patient seen and examined at bedside. Feels well. Breathing is strong. OBJECTIVE: Vital Signs Period Temp Pulse Resp BP Sys/Sandhu Pulse Ox Last 24 Hr 97.3 F-98.4 F 68-104 18-20 128-158/54-97 95-97 PHYSICAL EXAM GENERAL: The patient is awake, alert, and fully oriented, in no acute distress. HEAD: Normal with no signs of trauma. EYES: sclera anicteric, conjunctiva clear. No ptosis. ENT:oropharynx clear without exudates, moist mucous membranes. NECK: Trachea midline, full range of motion, supple. LUNGS: CTA b/l HEART: Regular rate and rhythm, S1, S2 without murmur, rub or gallop. ABDOMEN: Soft, nontender, nondistended, normoactive bowel sounds, no guarding, no rebound, no hepatosplenomegaly, no masses. EXTREMITIES: 2+ pulses, warm, well-perfused, no edema. NEUROLOGICAL: Cranial nerves II through XII grossly intact. Normal speech, gait not observed. PSYCH: Normal mood, normal affect. SKIN: Warm, dry, normal turgor, no rashes or lesions noted HOSPITAL COURSE: Date of Admission:01/25/18 Date of Discharge: 01/29/18 82yo man with PMH of COPD (on home O2, but does not use regularly), HLD, and bladder cancer s/p TURBT 5mo ago who presents to ED with fever and sob and found to be septic likely 2/2 PNA. Pt was found to have a PNA and was seen by pulm. He was febrile on admission. Pt improved rapidly with Azithromycin and Rocephin. Pt's COPD was treated with SoluMedrol, Nebs, and O2. His HLD was treated with his home dose of Lipitor. Pre and post revealed O2 sat 88% during exercise on RA and 95% with O2. Pt will need 2L O2 at home. Pt is afebrile and stable for discharge. Minutes to complete discharge: 30 Discharge Summary Reason For Visit: FEVER,OBSTRUCTIVE CHRONIC BRONCHITIS W EXACERBATIO Current Active Problems Bilateral pneumonia (Acute) Bladder cancer (Acute) COPD exacerbation (Acute) Mediastinal adenopathy (Acute) Pneumonia (Acute) Pulmonary nodule (Acute) Sepsis (Acute) Condition: Good - Instructions Diet, Activity, Other Instructions: You were treated in the hospital for pneumonia (lung infection). You are being sent home with the following: -Zocor 40 mg at night -Lipitor 20 mg at night -Advair twice daily -Spiriva 1 puff daily -Prednisone 60mg for 3 days (01/30/2018-02/01/2018) 50mg for 3 days (02/02/2018-02/04/2018) 40mg for 3 days (02/05/2018-02/07/2018) 30mg for 3 days (02/08/2018-02/10/2018) 20mg for 3 days (02/11/2018-02/13/2018) 10mg for 3 days (02/14/2018-02/17/2018) Please take the following antibiotics: -Cefuroxime for 5 days (01/30/2018 - 02/03/2018) -Azithromycin for 2 days (01/30/2018 - 01/31/2018) You need to use your oxygen at home. You need 2 L especially if you are active or feel short of breath. Please make sure your take your prescription medications as directed. Make sure you follow up with your primary doctor within 1 week. Make sure you follow up with your lung doctor (Dr. Rogers) within 1 week. You will need a follow up chest CT in 4-6 weeks. You can arrange this with your lung doctor. Referrals: Modesto Rogers MD [Staff Physician] - 1 Week Blake Barton MD [Primary Care Provider] - 1 Week Disposition: HOME - Home Medications Comprehensive Discharge Medication List: Ambulatory Orders Simvastatin [Zocor -] 40 mg PO HS 01/12/15 Tiotropium [place] [Spiriva] 1 inh PO DAILY 01/12/15 Fluticasone/Salmeterol [Advair 250-50 Diskus] 1 each IH BID 02/27/16 Atorvastatin [place] [Lipitor] 20 mg PO HS #30 tablet 01/29/18 Budesonide/Formeterol Fumarate [SYMBICORT 80/4.5mcg -] 2 puff IH BID #1 inhaler 01/29/18 predniSONE [Deltasone -] See Taper PO DAILY 18 Days tablet 01/29/18 This patient is new to me today: No Emergency Visit: No Critical Care patient: No - Discharge Referral Referred to [facility] No
[2018-01-29 14:31] VITALS: BP 131/65; PULSE 86; TEMP 97.4
== END 2018-01-29 15:23 | disposition home or self-care (01) | DRG 871 ==
LOC: JER 18:51 → JERBED 21:31 → J4W 01-26 01:23
PROVIDERS: ADMIT Internal Medicine; ATTEND Hospitalist
DX: A41.9 Sepsis, unspecified organism (principal); J18.9 Pneumonia, unspecified organism; J44.1 Chronic obstructive pulmonary disease with (acute) exacerbation; J44.0 Chronic obstructive pulmonary disease with (acute) lower respiratory infection; Z99.81 Dependence on supplemental oxygen; E78.5 Hyperlipidemia, unspecified; Z87.891 Personal history of nicotine dependence; Z85.51 Personal history of malignant neoplasm of bladder; R59.0 Localized enlarged lymph nodes; R91.1 Solitary pulmonary nodule
CPT/HCPCS: 36415; 71045-TC-FY; 71250-TC; 80048; 80053; 80076; 81003; 81015; 82803; 83605; 83735; 83880; 84100; 84484; 85025; 85610; 85730; 87040; 87070; 87086; 87205; 87899; 93005; 93010; 94640; 94761; 97116-GP; 97161-GP; 99283-25; J0131; J7030; J7620

== ENCOUNTER 2020-07-02 04:27 | Day surgery (SDC) | payer OTHER, BC ==
--- OUTSIDE RECORDS SUMMARY | 2020-06-16 12:18 | XMS ---
:1935 Author Organization [facility] Care Team Providers Name Role Phone Chumaceiro, Blake Unavailable Unavailable Chumaceiro, Blake Unavailable Unavailable Chumaceiro, Blake Unavailable Unavailable Chumaceiro, Blake Unavailable Unavailable Chumaceiro, Blake Unavailable Unavailable Chumaceiro, Blake Unavailable Unavailable Chumaceiro, Blake Unavailable Unavailable Chumaceiro, Blake Unavailable Unavailable Re-disclosure Warning The records that you are about to access may contain information from federally- assisted alcohol or drug abuse programs. If such information is present, then the following federally mandated warning applies: This information has been disclosed to you from records protected by federal confidentiality rules (42 CFR part 2). The federal rules prohibit you from making any further disclosure of this information unless further disclosure is expressly permitted by the written consent of the person to whom it pertains or as otherwise permitted by 42 CFR part 2. A general authorization for the release of medical or other information is NOT sufficient for this purpose. The Federal rules restrict any use of the information to criminally investigate or prosecute any alcohol or drug abuse patient.The records that you are about to access may contain highly sensitive health information, the redisclosure of which is protected by Article 27-F of the [place] State Public Health law. If you continue you may haveaccess to information: Regarding HIV / AIDS; Provided by facilities licensed or operated by the [facility] Mental [facility]; or Provided by the [facility] for People With Developmental Disabilities. If such information is present, then the following [facility] mandated warning applies: This information has been disclosed to you from confidential records which are protected by state law. State law prohibits you from making any further disclosure of this information without the specific written consent of the person to whom it pertains, or as otherwise permitted by law. Any unauthorized further disclosure in violation of state law may result in a fine or residential sentence or both. A general authorization for the release of medical or other information is NOT sufficient authorization for further disclosure. Encounters Encounter Providers Location Date Indications Data Source(s ) Attender: Blake 06/11/2020 [facility] ([facility] 12:[facility]:00 [facility]) EDT Office Attender: Blake 06/11/2020 12:00:00 AM EDT [facility] ([facility] Office Attender: Blake 06/11/2020 12:00:00 AM EDT [facility] ([facility] Office Attender: Blake 06/11/2020 12:00:00 AM EDT [facility] ([facility]) Office Attender: Blake 04/10/2020 12:00:00 AM EDT [facility] ([facility]) Office Attender: Blake 04/10/2020 12:00:00 AM EDT [facility] ([facility]) Office Attender: Blake 04/10/2020 12:00:00 AM EDT [facility] ([facility]) Office Attender: Blake 04/10/2020 12:00:00 AM EDT [facility] ([facility]) Office Immunizations Vaccine Date Status Description Data Source(s) New in 2011. IIV4 08/03/2018 completed [facility] ([facility] 12:[facility] AM EST [facility], [facility]) New in 2011. IIV4 08/03/2018 completed [facility] ([facility] 12:[facility]:00 AM EST Medical, PC) New in 2011. IIV4 07/27/2017 completed [facility] ([facility] 12:00:00 AM EST Medical, PC) New in 2011. IIV4 07/27/2017 completed [facility] ([facility] 12:00:00 AM EST Medical, PC) New in 2011. IIV4 06/30/2016 completed [facility] ([facility] 12:00:00 AM EDT Medical, PC) New in 2011. IIV4 06/30/2016 completed [facility] ([facility] 12:00:00 AM EDT Medical, PC) Pneumococcal conjugate 07/28/2010 completed [facility] N ([facility] PCV 13 12:00:00 AM [facility] Medical, ) Pneumococcal conjugate 07/28/2010 completed [facility] N ([facility] PCV 13 12:00:00 AM [facility] Medical, ) Medications Medication Brand Start Product Dose Route Administrative Pharmacy [facility] Indications Reaction Description Data Name Date Form Instructions Instructions Source(s) SPIRIVA 12/15/ complet SPIRIVA MED[facility] EN (St RESPIMAT 2015 ed RESPIMAT 28 [facility] 28: 12:00: Medical, 00 AM PC) EST ADVAIR 12/15/ POWDER 180 complet ADVAIR MED[facility] EN (St DISKUS:[id number] 2015 ed DISKUS [facility] 84 12:00: Medical, 00 AM PC) EST Simvastatin SIMVAS 15/ TABLET 90 complet SIMV ASTATIN [facility] (St 40 MG Oral TATIN: 2015 ed [facility] Tablet [id number] 12:00: Medical, SIMVASTATIN 00 AM PC) :[id number] EST SPIRIVA /15/ complet SPIRIVA MED[facility] EN (St RESPIMAT 2015 ed RESPIMAT 28 [facility] 28: 12:00: Medical, 00 AM PC) EST Simvastatin SIMVAS /15/ TABLET 90 complet SIMV ASTATIN [facility] (St 40 MG Oral TATIN: 2015 ed [facility] Tablet [id number] 12:00: Medical, SIMVASTATIN 00 AM PC) :[id number] EST ADVAIR 12/15/ POWDER 180 complet ADVAIR MEDG EN (St DISKUS:9695 2015 ed DISKUS [facility] 84 12:00: Medical, 00 AM PC) EST Insurance Providers Payer name Policy type Policy ID Covered Covered alliance party's Policy P andrew / Coverage alliance party ID relationship to [facility] ormation type carmona BC PPO [id number] SP [id number] MEDICARE [id number] SP [id number] [place] [id number] 1 [id number] PART B DOWNSTATE [employer] [id number] 1 [id number] [place] [id number] PART B DOWNSTATE Problems, Conditions, and Diagnoses Code Display Name Description Problem Effective Data Type Dates Source(s) L29.8 Other pruritus OTHER PRURITUS Problem 11/15/2019 [facility] (St 12:00:00 AM [facility], [facility]) L29.8 Other pruritus OTHER PRURITUS Problem 11/15/2019 [facility] (St 12:00:00 [facility], PC) Z23 Encounter for ENCOUNTER FOR Problem 08/03/2018 MED[facility] ( St immunization IMMUNIZATION 12:00:00 AM [facility] EST Medical, PC) Z23 Encounter for ENCOUNTER FOR Problem 08/03/2018 MED[facility] ( St immunization IMMUNIZATION 12:00:00 AM [facility] EST Medical, PC) 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, UNSPECIFIED 12:00:00 AM [facility] bladder, EST Medical, PC) unspecified Z01.818 Encounter for ENCOUNTER FOR OTHER Problem 09/19/2017 ME DGEN (St other PREPROCEDURAL 12:00:00 AM [facility] preprocedural EXAMINATION EST Medical, P C) examination 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, UNSPECIFIED 12:00:00 AM [facility] bladder, EST Medical, PC) unspecified Z01.818 Encounter for ENCOUNTER FOR OTHER Problem 09/19/2017 ME DGEN (St other PREPROCEDURAL 12:00:00 AM [facility] preprocedural EXAMINATION EST Medical, P C) examination 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 03/30/2017 MED[facility] (St hypercholesterole HYPERCHOLESTEROLEMIA 12:00:00 AM [facility] jes, unspecified EDT Medical, PC) J44.9 Chronic CHRONIC OBSTRUCTIVE Problem 03/30/2017 MEDGE N (St obstructive PULMONARY DISEASE, 12:00:00 AM [facility] pulmonary UNSPECIFIED EDT Medical, PC) disease, unspecified I10 Essential ESSENTIAL (PRIMARY) Problem 03/30/2017 MEDGE N (St (primary) HYPERTENSION 12:00:00 AM [facility] hypertension EDT Medical, PC) 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 03/30/2017 MED[facility] (St hypercholesterole HYPERCHOLESTEROLEMIA 12:00:00 AM [facility] jes, unspecified EDT Medical, ) J44.9 Chronic CHRONIC OBSTRUCTIVE Problem 03/30/2017 MEDGE N (St obstructive PULMONARY DISEASE, 12:00:00 AM [facility] pulmonary UNSPECIFIED EDT Medical, ) disease, unspecified I10 Essential ESSENTIAL (PRIMARY) Problem 03/30/2017 MEDGE N (St (primary) HYPERTENSION 12:00:00 AM [facility] hypertension EDT Medical, ) Z13.89 Encounter for ENCOUNTER FOR SCREENING Problem 7 MED[facility] (St screening for FOR OTHER DISORDER 12:00:00 AM [facility] other disorder EDT Medical, P C) Z13.89 Encounter for ENCOUNTER FOR SCREENING Problem 7 [facility] (St screening for FOR OTHER DISORDER 12:00:00 AM [facility] other disorder EDT Medical, P C) Surgeries/Procedures Procedure Description Date Indications Data Source(s) Documentation of current 06/11/2020 [facility] ([facility] medications (procedure) 12:00:00 AM EDT [facility], ) OFFICE OUTPATIENT VISIT 25 06/11/2020 Daniel DUNCAN ([facility] MINUTES 12:00:00 AM [facility], ) ECG ROUTINE ECG W/LEAST 12 06/11/2020 Daniel DUNCAN ([facility] W/I&R 12:00:00 AM [facility], ) COLLECTION VENOUS BLOOD 06/11/2020 MED[facility] ([facility] VENIPUNCTURE 12:00:00 AM [facility], ) Documentation of current 04/10/2020 [facility] ([facility] medications (procedure) 12:00:00 AM EDT [facility], ) OFFICE OUTPATIENT VISIT 15 04/10/2020 Daniel DUNCAN ([facility] MINUTES 12:00:00 AM [facility], ) Documentation of current 04/10/2020 [facility] ([facility] medications (procedure) 12:00:00 AM EDT [facility], ) OFFICE OUTPATIENT VISIT 15 04/10/2020 Daniel DUNCAN ([facility] MINUTES 12:00:00 AM [facility], ) Documentation of current 11/15/2019 [facility] ([facility] medications (procedure) 12:00:00 AM EST [facility], ) Documentation of current 11/15/2019 [facility] ([facility] medications (procedure) 12:00:00 AM NENA xavier, JONATHAN) Documentation of current 11/15/2019 [facility] ([facility] medications (procedure) 12:00:00 AM JONATHAN Null) Documentation of current 11/15/2019 [facility] ([facility] medications (procedure) 12:00:00 AM NENA xavier PC) Documentation of current 11/15/2019 [facility] ([facility] medications (procedure) 12:00:00 AM NENA xavier PC) OFFICE OUTPATIENT VISIT 15 11/15/2019 Daniel DUNCAN ([facility] MINUTES 12:00:00 AM EST Medical, PC) Documentation of current 11/15/2019 [facility] ([facility] medications (procedure) 12:00:00 AM NENA xavier PC) Documentation of current 11/15/2019 [facility] ([facility] medications (procedure) 12:00:00 AM NENA xavier PC) Documentation of current 11/15/2019 [facility] ([facility] medications (procedure) 12:00:00 AM NENA xavier PC) Documentation of current 11/15/2019 [facility] ([facility] medications (procedure) 12:00:00 AM NENA xavier, PC) Documentation of current 11/15/2019 [facility] ([facility] medications (procedure) 12:00:00 AM JONATHAN Null) OFFICE OUTPATIENT VISIT 15 11/15/2019 Daniel DUNCAN ([facility] MIN[facility]ES 12:00:00 AM EST Medical, PC) Documentation of current 07/26/2019 [facility] ([facility] medications (procedure) 12:00:00 AM JONATHAN Null) Influenza virus vaccine, 07/26/2019 [facility] ([facility] split virus, when 12:00:00 AM EST Medical , PC) administered to individuals 3 years of age and older, for intramuscular use (flulaval) Administration of 07/26/2019 [facility] ([facility] influenza virus vaccine 12:00:00 AM NENA xavier, PC) OFFICE OUTPATIENT VISIT 25 07/26/2019 Daniel DUNCAN ([facility] MINUTES 12:00:00 AM EST Medical, PC) COLLECTION VENOUS BLOOD 07/26/2019 MED[facility] EN ([facility] VENIPUNCTURE 12:00:00 AM EST Medical, PC) Documentation of current 07/26/2019 [facility] ([facility] medications (procedure) 12:00:00 AM EST [facility] x[facility] PC) Influenza virus vaccine, 07/26/2019 [facility] ([facility] split virus, when 12:00:00 AM [facility] Medical , PC) administered to individuals 3 years of age and older, for intramuscular use (flulaval) Administration of 07/26/2019 [facility] ([facility] influenza virus vaccine 12:00:00 AM EST JONATHAN Marley) OFFICE OUTPATIENT VISIT 25 07/26/2019 Daniel DUNCAN ([facility] MINUTES 12:00:00 AM EST Medical, PC) COLLECTION VENOUS BLOOD 07/26/2019 MED[facility] EN ([facility] VENIPUNCTURE 12:00:00 AM EST [facility], PC) Documentation of current 03/28/2019 MED [facility] ([facility] medications (procedure) 12:00:00 AM EDJONATHAN Prieto) Documentation of current 03/28/2019 [facility] ([facility] medications (procedure) 12:00:00 AM EDT JONATHAN Marley) Documentation of current 03/28/2019 [facility] ([facility] medications (procedure) 12:00:00 AM EDT JONATHAN Marley) Documentation of current 03/28/2019 [facility] ([facility] medications (procedure) 12:00:00 AM EDJONATHAN Prieto) Documentation of current 03/28/2019 [facility] ([facility] medications (procedure) 12:00:00 AM EDJONATHAN Prieto) OFFICE OUTPATIENT VISIT 15 03/28/2019 Daniel DUNCAN ([facility] MIN[facility]ES 12:00:00 AM FERNANDO [facility] PC) Documentation of current 03/28/2019 MED [facility] ([facility] medications (procedure) 12:00:00 AM EDT Daniel xavier PC) Documentation of current 03/28/2019 [facility] ([facility] medications (procedure) 12:00:00 AM EDT Daniel xavier PC) Documentation of current 03/28/2019 [facility] ([facility] medications (procedure) 12:00:00 AM EDT Daniel xavier PC) Documentation of current 03/28/2019 [facility] ([facility] medications (procedure) 12:00:00 AM EDT Daniel xavier PC) Documentation of current 03/28/2019 [facility] ([facility] medications (procedure) 12:00:00 AM EDT [facility], ) OFFICE OUTPATIENT VISIT 15 03/28/2019 Daniel PERLA [facility]ation of current 12/27/2018 [facility] VIS[facility] 15 12/27/2018 Daniel PERLA ([facility] MINUTES 12:00:00 AM [facility], ) Documentation of current 12/27/2018 MED [facility] ([facility]procedure) [facility]PATIENT VISIT 15 12/27/2018 Daniel PERLA ([facility] MINUTES 12:00:00 AM [facility], ) Documentation of current 2018 MED [facility] ([facility] medications (procedure) 12:00:00 AM EST [facility], ) OFFICE OUTPATIENT VISIT 25 2018 Daniel PERLA ([facility] MINUTES 12:00:00 AM [facility], ) ECG ROUTINE ECG W/LEAST 12 2018 Daniel PERLA ([facility] W/I&R 12:00:00 AM EST [facility], ) COLLECTION VENOUS BLOOD 2018 MED[facility] EN ([facility] VENIPUNCTURE 12:00:00 AM [facility], ) Documentation of current 2018 MED GEN ([facility] medications (procedure) 12:00:00 AM EST [facility], ) OFFICE OUTPATIENT VISIT 25 2018 Daniel PERLA ([facility] MINUTES 12:00:00 AM [facility], ) ECG ROUTINE ECG W/LEAST 12 2018 Daniel PERLA ([facility] W/I&R 12:00:00 AM EST [facility], ) COLLECTION VENOUS BLOOD 2018 MED[facility] EN ([facility] VENIPUNCTURE 12:00:00 AM [facility], ) Documentation of current 08/03/2018 [facility] ([facility] medications (procedure) 12:00:00 AM EST [facility], ) Documentation of current 08/03/2018 MED [facility] ([facility] medications (procedure) 12:00:00 AM EST [facility]) Documentation of current 08/03/2018 [facility] ([facility] medications (procedure) 12:00:00 AM EST [facility], ) Influenza virus vaccine, 08/03/2018 MED [facility] ([facility] split virus, when 12:00:00 AM [facility]) administered to individuals 3 years of age and older, for intramuscular use (flulaval) Administration of 08/03/2018 [facility] ([facility] influenza virus vaccine 12:00:00 AM [facility]) OFFICE OUTPATIENT VISIT 15 08/03/2018 Daniel EDGEN ([facility] MINUTES 12:00:00 AM [facility], ) Documentation of current 08/03/2018 MED [facility] ([facility] medications (procedure) 12:00:00 AM [facility], ) Documentation of current 08/03/2018 MED [facility] ([facility] medications (procedure) 12:00:00 AM [facility]) Documentation of current 08/03/2018 MED [facility] ([facility] medications (procedure) 12:00:00 AM [facility]) Influenza virus vaccine, 08/03/2018 MED [facility] ([facility] split virus, when 12:00:00 AM [facility]) administered to individuals 3 years of age and older, for intramuscular use (flulaval) Administration of 08/03/2018 [facility] ([facility] influenza virus vaccine 12:00:00 AM [facility]) OFFICE OUTPATIENT VISIT 15 08/03/2018 Daniel FLOREZN ([facility] MINUTES 12:00:00 AM [facility], ) OFFICE OUTPATIENT VISIT 04/11/2018 Daniel DUNCAN ([facility] MINUTES 12:00:00 AM [facility], ) ECG ROUTINE ECG W/LEAST 12 04/11/2018 Daniel FLOREZN ([facility] W/I&R 12:00:00 AM [facility], ) COLLECTION VENOUS BLOOD 04/11/2018 MED[facility] EN ([facility] VENIPUNCTURE 12:00:00 AM [facility], ) OFFICE OUTPATIENT VISIT 04/11/2018 Daniel DUNCAN ([facility] MINUTES 12:00:00 AM [facility], ) ECG ROUTINE ECG W/LEAST 12 04/11/2018 Daniel DUNCAN ([facility] W/I&R 12:00:00 AM EDT Medical, ) COLLECTION VENOUS BLOOD 04/11/2018 MED[facility] EN ([facility] VENIPUNCTURE 12:00:00 AM EDT [facility], ) Documentation of current 03/26/2018 MED GEN ([facility] medications (procedure) 12:00:00 AM EDT edical, ) OFFICE OUTPATIENT VISIT 15 03/26/2018 Daniel PERLA ([facility] MIN[facility]ES 12:00:00 AM EDT Medical, ) Documentation of current 03/26/2018 MED [facility] ([facility] medications (procedure) 12:00:00 AM EDT edical, ) OFFICE OUTPATIENT VISIT 15 03/26/2018 Daniel PERLA ([facility] MINUTES 12:00:00 AM EDT Medical, ) Documentation of current 03/08/2018 MED [facility] ([facility] medications (procedure) 12:00:00 AM EDT edical, ) Documentation of current 03/08/2018 [facility] ([facility] medications (procedure) 12:00:00 AM EDT edical, ) OFFICE OUTPATIENT VISIT 25 03/08/2018 Daniel PERLA ([facility] MIN[facility]ES 12:00:00 AM EDT Medical, ) Documentation of current 03/08/2018 MED [facility] ([facility] medications (procedure) 12:00:00 AM EDT edical, PC) Documentation of current 03/08/2018 [facility] ([facility] medications (procedure) 12:00:00 AM EDT edical, ) OFFICE OUTPATIENT VISIT 25 03/08/2018 Daniel PERLA ([facility] MINUTES 12:00:00 AM EDT Medical, ) Documentation of current 02/21/2018 MED [facility] ([facility] medications (procedure) 12:00:00 AM EDT edical, PC) Documentation of current 02/21/2018 [facility] ([facility] medications (procedure) 12:00:00 AM EDT edical, PC) Documentation of current 02/21/2018 [facility] ([facility] medications (procedure) 12:00:00 AM EDT edical, ) Documentation of current 02/21/2018 [facility] ([facility] medications (procedure) 12:00:00 AM EDT edical, PC) OFFICE OUTPATIENT VISIT 15 02/21/2018 Daniel PERLA ([facility] MIN[facility]ES 12:00:00 AM EDT Medical, PC) Documentation of current 02/21/2018 MED [facility] ([facility] medications (procedure) 12:00:00 AM EDT edical, PC) Documentation of current 02/21/2018 MED [facility] ([facility] medications (procedure) 12:00:00 AM EDT edical, PC) Documentation of current 02/21/2018 [facility] ([facility] medications (procedure) 12:00:00 AM EDT edical, PC) Documentation of current 02/21/2018 [facility] ([facility] medications (procedure) 12:00:00 AM EDT edical, PC) OFFICE OUTPATIENT VISIT 15 02/21/2018 Daniel PERLA ([facility] MIN[facility]ES 12:00:00 AM EDT Medical, PC) Documentation of current 02/07/2018 MED [facility] ([facility] medications (procedure) 12:00:00 AM EDT edical, PC) OFFICE OUTPATIENT VISIT 25 02/07/2018 Daniel PERLA ([facility] MIN[facility]ES 12:00:00 AM EDT Medical, ) Documentation of current 02/07/2018 [facility] ([facility] medications (procedure) 12:00:00 AM EDT edical, PC) OFFICE OUTPATIENT VISIT 25 02/07/2018 Daniel DUNCAN ([facility] MIN[facility]ES 12:00:00 AM EDT Medical, PC) OFFICE OUTPATIENT VISIT 15 12/08/2017 Daniel DUNCAN ([facility] MINUTES 12:00:00 AM EDT Medical, PC) OFFICE OUTPATIENT VISIT 15 12/08/2017 Daniel DUNCAN ([facility] MIN[facility]ES 12:00:00 AM EDT Medical, PC) Documentation of current 09/19/2017 [facility] ([facility] medications (procedure) 12:00:00 AM EST [facility], [facility]) Documentation of current 09/19/2017 [facility] ([facility] medications (procedure) 12:00:00 AM EST Daniel edical, PC) Documentation of current 09/19/2017 [facility] ([facility] medications (procedure) 12:00:00 AM EST Daniel edical, PC) Documentation of current 09/19/2017 [facility] ([facility] medications (procedure) 12:00:00 AM EST M edical, PC) OFFICE OUTPATIENT VISIT 25 09/19/2017 M EDGEN ([facility] MINUTES 12:00:00 AM [facility], ) ECG ROUTINE ECG W/LEAST 12 09/19/2017 Daniel VIKKIN ([facility] W/I&R 12:00:00 AM [facility], ) COLLECTION VENOUS BLOOD 09/19/2017 MEDG EN ([facility] VENIPUNCTURE 12:00:00 AM [facility], ) Documentation of current 09/19/2017 MED [facility] ([facility] medications (procedure) 12:00:00 AM EST [facility], ) Documentation of current 09/19/2017 MED [facility] ([facility] medications (procedure) 12:00:00 AM EST [facility], ) Documentation of current 09/19/2017 MED [facility] ([facility] medications (procedure) 12:00:00 AM EST [facility], ) Documentation of current 09/19/2017 MED [facility] ([facility] medications (procedure) 12:00:00 AM EST [facility], ) OFFICE OUTPATIENT VISIT 25 09/19/2017 Daniel VIKKIN ([facility] MINUTES 12:00:00 AM [facility], ) ECG ROUTINE ECG W/LEAST 12 09/19/2017 Daniel FLOREZN ([facility] W/I&R 12:00:00 AM [facility], ) COLLECTION VENOUS BLOOD 09/19/2017 MED[facility] EN ([facility] VENIPUNCTURE 12:00:00 AM [facility], ) Documentation of current 07/27/2017 MED [facility] ([facility] medications (procedure) 12:00:00 AM EST [facility], ) Documentation of current 07/27/2017 MED [facility] ([facility] medications (procedure) 12:00:00 AM EST [facility], ) Documentation of current 07/27/2017 MED [facility] ([facility] medications (procedure) 12:00:00 AM EST [facility], ) Influenza virus vaccine, 07/27/2017 MED GEN ([facility] split virus, when 12:00:00 AM [facility] , ) administered to individuals 3 years of age and older, for intramuscular use (flulaval) Administration of 07/27/2017 [facility] ([facility] influenza virus vaccine 12:00:00 AM EST [facility], ) OFFICE OUTPATIENT VISIT 25 07/27/2017 Daniel FLOREZN ([facility] MIN[facility]ES 12:00:00 AM EST Medical, ) COLLECTION VENOUS BLOOD 07/27/2017 MED[facility] EN ([facility] VENIPUNCTURE 12:00:00 AM EST [facility], ) Documentation of current 07/27/2017 MED GEN ([facility] medications (procedure) 12:00:00 AM EST [facility], ) Documentation of current 07/27/2017 MED [facility] ([facility] (procedure) [facility] Documentation of current 07/27/2017 MED GEN ([facility] medications (procedure) 12:00:00 AM EST [facility], ) Influenza virus vaccine, 07/27/2017 MED GEN ([facility] split virus, when 12:00:00 AM [facility] , ) administered to individuals 3 years of age and older, for intramuscular use (flulaval) Administration of 07/27/2017 [facility] ([facility] influenza virus vaccine 12:00:00 AM EST [facility], ) OFFICE OUTPATIENT VISIT 25 07/27/2017 Daniel DUNCAN ([facility] MINUTES 12:00:00 AM EST [facility], ) COLLECTION VENOUS BLOOD 07/27/2017 MED[facility] EN ([facility] VENIPUNCTURE 12:00:00 AM [facility], ) Documentation of current 03/30/2017 MED GEN ([facility] medications (procedure) 12:00:00 AM EDT [facility], ) Documentation of current 03/30/2017 MED [facility] ([facility] medications (procedure) 12:00:00 AM EDT [facility], ) OFFICE OUTPATIENT VISIT 15 03/30/2017 Daniel DUNCAN ([facility] MIN[facility]ES 12:00:00 AM ED Medical, PC) Documentation of current 03/30/2017 MED GEN ([facility] medications (procedure) 12:00:00 AM EDT edical, ) Documentation of current 03/30/2017 MED [facility] ([facility] medications (procedure) 12:00:00 AM EDT edical, ) OFFICE OUTPATIENT VISIT 15 03/30/2017 Daniel DUNCAN ([facility] MIN[facility]ES 12:00:00 AM ED Medical, PC) Documentation of current 01/05/2017 MED GEN ([facility] medications (procedure) 12:00:00 AM EDT edical, PC) Documentation of current 01/05/2017 MED [facility] ([facility] medications (procedure) 12:00:00 AM EDT edical, PC) OFFICE OUTPATIENT VISIT 15 01/05/2017 Daniel EDGEN ([facility] MINUTES 12:00:00 AM EDT Medical, ) COLLECTION VENOUS BLOOD 01/05/2017 MEDG EN ([facility] VENIPUNCTURE 12:00:00 AM EDT Medical, PC) Documentation of current 01/05/2017 MED GEN ([facility] medications (procedure) 12:00:00 AM EDT edical, PC) Documentation of current 01/05/2017 MED GEN ([facility] medications (procedure) 12:00:00 AM EDT edical, PC) OFFICE OUTPATIENT VISIT 15 01/05/2017 Daniel FLOREZN ([facility] MIN[facility]ES 12:00:00 AM EDT Medical, ) COLLECTION VENOUS BLOOD 01/05/2017 MED[facility] EN ([facility] VENIPUNCTURE 12:00:00 AM EDT Medical, ) Documentation of current 09/01/2016 MED [facility] ([facility] medications (procedure) 12:00:00 AM EST [facility], PC) Documentation of current 09/01/2016 MED GEN ([facility] (procedure) 12:00:00 AM EST [facility], PC) Documentation of current 09/01/2016 MED GEN ([facility] (procedure) 12:00:00 AM EST [facility], PC) Documentation of current 09/01/2016 MED GEN ([facility] (procedure) 12:00:00 AM EST Daniel wrightical, PC) Documentation of current 09/01/2016 MED GEN ([facility] (procedure) 12:00:00 AM EST [facility], PC) Documentation of current 09/01/2016 MED GEN ([facility] (procedure) 12:00:00 AM EST edical, PC) Documentation of current 09/01/2016 MED GEN ([facility] (procedure) 12:00:00 AM EST edical, PC) Documentation of current 09/01/2016 MED GEN ([facility] (procedure) 12:00:00 AM EST Daniel wrightical, PC) Documentation of current 09/01/2016 MED GEN ([facility] (procedure) 12:00:00 AM EST edical, PC) OFFICE OUTPATIENT VISIT 15 09/01/2016 Daniel DUNCAN ([facility]ES 12:00:00 AM EST Medical, PC) Documentation of current 09/01/2016 MED GEN ([facility] (procedure) 12:00:00 AM EST edical, PC) Documentation of current 09/01/2016 MED GEN ([facility] (procedure) 12:00:00 AM EST edical, PC) Documentation of current 09/01/2016 MED GEN ([facility] (procedure) 12:00:00 AM EST edical, PC) Documentation of current 09/01/2016 MED GEN ([facility] (procedure) 12:00:00 AM EST edical, PC) Documentation of current 09/01/2016 MED GEN ([facility] (procedure) 12:00:00 AM EST edical, PC) Documentation of current 09/01/2016 MED GEN ([facility] (procedure) 12:00:00 AM EST edical, PC) Documentation of current 09/01/2016 MED GEN ([facility] (procedure) 12:00:00 AM EST edical, PC) Documentation of current 09/01/2016 MED GEN ([facility] (procedure) 12:00:00 AM EST [facility], PC) Documentation of current 09/01/2016 MED GEN ([facility] (procedure) 12:00:00 AM EST edical, ) OFFICE OUTPATIENT VISIT 15 09/01/2016 Daniel DUNCAN ([facility] 12:00:00 AM EST Medical, ) Results ID Date Data Source [id number] 07/26/2019 12:00:00 AM EST MEDGEN ([facility], [facility]) Name Value Range Interpretation Description Data Sup porting Code Source(s) Document(s ) Vitamin D, 14.7 Below low normal MEDGEN (St 25-Hydroxy ng/mL [facility], ) ID Date Data Source [id number] 07/26/2019 12:00:00 AM EST MED[facility] ([facility], [facility]) Name Value Range Interpretation Description Data Sup porting Code Source(s) Document(s ) Prostate 1.3 ng/mL Normal (applies to MEDGEN (St Specific Ag, non-numeric [facility] Serum results) [facility], ) ID Date Data Source [id number] 07/26/2019 12:00:00 AM EST MEDGEN ([facility], ) Name Value Range Interpretation Description Data Sup porting Code Source(s) Document(s ) Vitamin B12 281 pg/mL Normal (applies to MEDGEN (S t non-numeric [facility] results) [facility], ) Folate 15.8 Normal (applies to MEDGEN (St (Folic ng/mL non-numeric [facility] Acid), Serum results) [facility], ) ID Date Data Source [id number] 07/26/2019 12:00:00 AM EST MEDGEN ([facility], ) Name Value Range Interpretation Description Data Sup porting Code Source(s) Document(s ) Bilirubin.c 0.21 mg/dL Normal (applies to MEDGEN ( St onjugated non-numeric [facility] [Mass/volum results) [facility], ) e] in Serum or Plasma ID Date Data Source [id number] 07/26/2019 12:00:00 AM EST MEDGEN ([facility], ) Name Value Range Interpretation Description Data Sup porting Code Source(s) Document(s ) Cholesterol 158 Normal (applies MEDGEN (St [Mass/volume] in mg/dL to non-numeric [facility] Serum or Plasma results) [facility], ) Triglyceride 179 Above high normal MEDGEN (S t [Mass/volume] in mg/dL [facility] Serum or Plasma [facility], ) HDL Cholesterol 39 mg/dL Below low normal MEDGEN ([facility], ) VLDL Cholesterol 36 mg/dL Normal (applies MEDGEN (St [facility] to non-numeric [facility] results) [facility], ) LDL Cholesterol 83 mg/dL Normal (applies MEDGEN ( St Calc to non-numeric [facility] results) [facility], ) ID Date Data Source [id number] 07/26/2019 12:00:00 AM EST MEDGEN ([facility], ) Name Value Range Interpretation Description Data Sup porting Code Source(s) Document(s ) Glucose 104 Above high MEDGEN (St [Mass/volume] in mg/dL normal [facility] Urine collected for Medical, unspecified PC) duration Urea nitrogen 22 mg/dL Normal (applies MEDGEN (St [Mass/volume] in to non-numeric [facility] Serum or Plasma results) Medical, PC) Creatinine 1.22 Normal (applies MEDGEN (St [Interpretation] in mg/dL to non-numeric [facility] Urine results) Medical, PC) eGFR If Africn Am 63 Normal (applies MEDGEN (St mL/min/1 to non-numeric [facility] .73 results) Medical, PC) eGFR If NonAfricn 55 Below low normal MEDGE N (St Am mL/min/1 [facility] .73 Medical, PC) BUN/Creatinine 18 Normal (applies MEDGEN (S t Ratio to non-numeric [facility] results) Medical, PC) Potassium 4.8 Normal (applies MEDGEN (St [Mass/volume] in mmol/L to non-numeric [facility] Blood results) Medical, PC) Sodium 140 Normal (applies MEDGEN (St [Moles/volume] in mmol/L to non-numeric [facility] Serum or Plasma results) Medical, PC) Chloride 102 Normal (applies MEDGEN (St [Moles/volume] in mmol/L to non-numeric [facility] Serum or Plasma results) Medical, PC) Calcium 10.0 Normal (applies MEDGEN (St [Moles/volume] in mg/dL to non-numeric [facility] Urine collected for results) Medical, unspecified PC) duration Carbon dioxide, 23 Normal (applies MEDGEN ( St total mmol/L to non-numeric [facility] [Moles/volume] in results) Medical, Serum or Plasma PC) Protein 7.3 g/dL Normal (applies MEDGEN (St [Mass/volume] in to non-numeric [facility] Serum or Plasma results) Medical, PC) Microalbumin 4.6 g/dL Normal (applies MEDGEN (St [Mass/time] in to non-numeric [facility] Urine collected for results) Medical, unspecified PC) duration A/G Ratio 1.7 Normal (applies MEDGEN (St to non-numeric [facility] results) Medical, PC) Globulin, Total 2.7 g/dL Normal (applies MEDGEN ( St to non-numeric [facility] results) Medical, PC) Bilirubin.total 1.0 Normal (applies MEDGEN ( St [Mass/volume] in mg/dL to non-numeric [facility] Serum or Plasma results) Medical, PC) Alkaline 66 IU/L Normal (applies MEDGEN (St phosphatase to non-numeric [facility] [Enzymatic results) Medical, activity/volume] in ) Serum, Plasma or Blood Aspartate 19 IU/L Normal (applies MEDGEN (St aminotransferase to non-numeric [facility] [Enzymatic results) Medical, activity/volume] in ) Serum or Plasma Alanine 18 IU/L Normal (applies MEDGEN (St aminotransferase to non-numeric [facility] [Enzymatic results) Medical, activity/volume] in ) Serum or Plasma ID Date Data Source [id number] 07/26/2019 12:00:00 AM EST MEDGEN ([facility], ) Name Value Range Interpretation Description Data Sup porting Code Source(s) Document(s ) Leukocytes 7.0 Normal (applies MEDGEN (St [#/volume] in x10E3/uL to non-numeric [facility] Blood by results) Medical, ) Automated count Erythrocytes 5.50 Normal (applies MEDGEN (St [#/volume] in x10E6/uL to non-numeric [facility] Blood by results) Medical, ) Automated count Hemoglobin 15.8 Normal (applies MEDGEN (St [Mass/volume] in g/dL to non-numeric [facility] Blood results) Medical, ) Hematocrit 45.6 % Normal (applies MEDGEN (St [Volume to non-numeric [facility] Fraction] of results) [facility], ) Blood by Automated count MCV 83 fL Normal (applies MEDGEN (St to non-numeric [facility] results) Medical, ) MCHC 34.6 Normal (applies MEDGEN (St g/dL to non-numeric [facility] results) Medical, ) MCH 28.7 pg Normal (applies MEDGEN (St to non-numeric [facility] results) Medical, ) RDW 14.2 % Normal (applies MEDGEN (St to non-numeric [facility] results) Medical, ) Platelets 241 Normal (applies MEDGEN (St [#/area] in x10E3/uL to non-numeric [facility] Blood by results) Medical, ) Microscopy high power field Neutrophils [#] 49 % Normal (applies MEDGEN ( St in Body fluid by to non-numeric [facility] Manual count results) Medical, ) Monocytes 9 % Normal (applies MEDGEN (St [#/volume] in to non-numeric [facility] Cord blood results) Medical, ) Lymphs 38 % Normal (applies MEDGEN (St to non-numeric [facility] results) Medical, ) Eos 3 % Normal (applies MEDGEN (St to non-numeric [facility] results) Medical, ) Neutrophils 3.5 Normal (applies MEDGEN (St (Absolute) x10E3/uL to non-numeric [facility] results) Medical, ) Basos 1 % Normal (applies MEDGEN (St to non-numeric [facility] results) Medical, ) Lymphs 2.6 Normal (applies MEDGEN (St (Absolute) x10E3/uL to non-numeric [facility] results) Medical, ) Monocytes(Absolu 0.6 Normal (applies MEDGEN (St te) x10E3/uL to non-numeric [facility] results) Medical, ) Eos (Absolute) 0.2 Normal (applies MEDGEN (S t x10E3/uL to non-numeric [facility] results) Medical, ) Baso (Absolute) 0.1 Normal (applies MEDGEN ( St x10E3/uL to non-numeric [facility] results) Medical, ) Immature Grans 0.0 Normal (applies MEDGEN (S t (Abs) x10E3/uL to non-numeric [facility] results) Medical, ) Immature 0 % Normal (applies MEDGEN (St Granulocytes to non-numeric [facility] results) [facility], ) ID Date Data Source [id number] 07/26/2019 12:00:00 AM EST [facility] ([facility], ) Name Value Range Interpretation Description Data Sup porting Code Source(s) Document(s ) Vitamin D, 14.7 Below low normal MEDGEN (St 25-Hydroxy ng/mL [facility], ) ID Date Data Source [id number] 07/26/2019 12:00:00 AM EST [facility] ([facility], ) Name Value Range Interpretation Description Data Sup porting Code Source(s) Document(s ) Prostate 1.3 ng/mL Normal (applies to MEDGEN (St Specific Ag, non-numeric [facility] Serum results) [facility], ) ID Date Data Source [id number] 07/26/2019 12:00:00 AM EST [facility]GEN ([facility], ) Name Value Range Interpretation Description Data Sup porting Code Source(s) Document(s ) Vitamin B12 281 pg/mL Normal (applies to MEDGEN (S t non-numeric [facility] results) [facility], ) Folate 15.8 Normal (applies to MEDGEN (St (Folic ng/mL non-numeric [facility] Acid), Serum results) [facility], ) ID Date Data Source [id number] 07/26/2019 12:00:00 AM EST MEDGEN ([facility], ) Name Value Range Interpretation Description Data Sup porting Code Source(s) Document(s ) Bilirubin.c 0.21 mg/dL Normal (applies to MEDGEN ( St onjugated non-numeric [facility] [Mass/volum results) [facility], ) e] in Serum or Plasma ID Date Data Source [id number] 07/26/2019 12:00:00 AM EST MEDGEN ([facility], ) Name Value Range Interpretation Description Data Sup porting Code Source(s) Document(s ) Cholesterol 158 Normal (applies MEDGEN (St [Mass/volume] in mg/dL to non-numeric [facility] Serum or Plasma results) Medical, ) Triglyceride 179 Above high normal MEDGEN (S t [Mass/volume] in mg/dL [facility] Serum or Plasma [facility], ) HDL Cholesterol 39 mg/dL Below low normal MEDGEN ([facility], ) LDL Cholesterol 83 mg/dL Normal (applies MEDGEN ( St Calc to non-numeric [facility] results) [facility], ) VLDL Cholesterol 36 mg/dL Normal (applies [facility]GEN ([facility] to non-numeric [facility] results) [facility], ) ID Date Data Source [id number] 07/26/2019 12:00:00 AM EST MEDGEN ([facility], ) Name Value Range Interpretation Description Data Sup porting Code Source(s) Document(s ) Urea nitrogen 22 mg/dL Normal (applies MEDGEN (St [Mass/volume] in to non-numeric [facility] Serum or Plasma results) [facility], ) Glucose 104 Above high MEDGEN (St [Mass/volume] in mg/dL normal [facility] Urine collected for Medical, unspecified PC) duration Creatinine 1.22 Normal (applies MEDGEN (St [Interpretation] in mg/dL to non-numeric [facility] Urine results) [facility], ) eGFR If NonAfricn 55 Below low normal MEDGE N (St Am mL/min/1 [facility] .73 Medical, PC) eGFR If Africn Am 63 Normal (applies MEDGEN (St mL/min/1 to non-numeric [facility] .73 results) Medical, PC) Sodium 140 Normal (applies MEDGEN (St [Moles/volume] in mmol/L to non-numeric [facility] Serum or Plasma results) Medical, PC) BUN/Creatinine 18 Normal (applies MEDGEN (S t Ratio to non-numeric [facility] results) Medical, PC) Potassium 4.8 Normal (applies MEDGEN (St [Mass/volume] in mmol/L to non-numeric [facility] Blood results) Medical, PC) Chloride 102 Normal (applies MEDGEN (St [Moles/volume] in mmol/L to non-numeric [facility] Serum or Plasma results) Medical, PC) Carbon dioxide, 23 Normal (applies MEDGEN ( St total mmol/L to non-numeric [facility] [Moles/volume] in results) Medical, Serum or Plasma PC) Protein 7.3 g/dL Normal (applies MEDGEN (St [Mass/volume] in to non-numeric [facility] Serum or Plasma results) Medical, PC) Calcium 10.0 Normal (applies MEDGEN (St [Moles/volume] in mg/dL to non-numeric [facility] Urine collected for results) Medical, unspecified PC) duration Microalbumin 4.6 g/dL Normal (applies MEDGEN (St [Mass/time] in to non-numeric [facility] Urine collected for results) Medical, unspecified PC) duration Globulin, Total 2.7 g/dL Normal (applies MEDGEN ( St to non-numeric [facility] results) Medical, PC) A/G Ratio 1.7 Normal (applies MEDGEN (St to non-numeric [facility] results) Medical, PC) Bilirubin.total 1.0 Normal (applies MEDGEN ( St [Mass/volume] in mg/dL to non-numeric [facility] Serum or Plasma results) Medical, PC) Aspartate 19 IU/L Normal (applies MEDGEN (St aminotransferase to non-numeric [facility] [Enzymatic results) Medical, activity/volume] in PC) Serum or Plasma Alkaline 66 IU/L Normal (applies MEDGEN (St phosphatase to non-numeric [facility] [Enzymatic results) Medical, activity/volume] in PC) Serum, Plasma or Blood Alanine 18 IU/L Normal (applies MEDGEN (St aminotransferase to non-numeric [facility] [Enzymatic results) Medical, activity/volume] in ) Serum or Plasma ID Date Data Source [id number] 07/26/2019 12:00:00 AM EST [facility] ([facility], ) Name Value Range Interpretation Description Data Sup porting Code Source(s) Document(s ) Erythrocytes 5.50 Normal (applies MEDGEN (St [#/volume] in x10E6/uL to non-numeric [facility] Blood by results) Medical, ) Automated count Leukocytes 7.0 Normal (applies MEDGEN (St [#/volume] in x10E3/uL to non-numeric [facility] Blood by results) [facility], ) Automated count Hematocrit 45.6 % Normal (applies MEDGEN (St [Volume to non-numeric [facility] Fraction] of results) [facility], ) Blood by Automated count Hemoglobin 15.8 Normal (applies MEDGEN (St [Mass/volume] in g/dL to non-numeric [facility] Blood results) [facility], ) MCV 83 fL Normal (applies MEDGEN (St to non-numeric [facility] results) Medical, ) MCHC 34.6 Normal (applies MEDGEN (St g/dL to non-numeric [facility] results) [facility], ) MCH 28.7 pg Normal (applies MEDGEN (St to non-numeric [facility] results) [facility], ) RDW 14.2 % Normal (applies MEDGEN (St to non-numeric [facility] results) [facility], ) Platelets 241 Normal (applies MEDGEN (St [#/area] in x10E3/uL to non-numeric [facility] Blood by results) [facility], ) Microscopy high power field Neutrophils [#] 49 % Normal (applies MEDGEN ( St in Body fluid by to non-numeric [facility] Manual count results) [facility], ) Lymphs 38 % Normal (applies MEDGEN (St to non-numeric [facility] results) [facility], ) Monocytes 9 % Normal (applies MEDGEN (St [#/volume] in to non-numeric [facility] Cord blood results) [facility], ) Basos 1 % Normal (applies MEDGEN (St to non-numeric [facility] results) Medical, ) Eos 3 % Normal (applies MEDGEN (St to non-numeric [facility] results) Medical, ) Lymphs 2.6 Normal (applies MEDGEN (St (Absolute) x10E3/uL to non-numeric [facility] results) Medical, ) Neutrophils 3.5 Normal (applies MEDGEN (St (Absolute) x10E3/uL to non-numeric [facility] results) Medical, ) Monocytes(Absolu 0.6 Normal (applies MEDGEN (St te) x10E3/uL to non-numeric [facility] results) Medical, ) Baso (Absolute) 0.1 Normal (applies MEDGEN ( St x10E3/uL to non-numeric [facility] results) Medical, ) Eos (Absolute) 0.2 Normal (applies MEDGEN (S t x10E3/uL to non-numeric [facility] results) Medical, ) Immature Grans 0.0 Normal (applies MEDGEN (S t (Abs) x10E3/uL to non-numeric [facility] results) Medical, ) Immature 0 % Normal (applies MEDGEN (St Granulocytes to non-numeric [facility] results) Medical, ) ID Date Data Source [id number] 2018 12:00:00 AM EST [facility] ([facility], ) Name Value Range Interpretation Description Data Sup porting Code Source(s) Document(s ) Vitamin D, 13.1 Below low normal MEDGEN (St 25-Hydroxy ng/mL [facility], ) ID Date Data Source [id number] 2018 12:00:00 AM EST MED[facility] ([facility], ) Name Value Range Interpretation Description Data Sup porting Code Source(s) Document(s ) Prostate 1.5 ng/mL Normal (applies to MEDGEN (St Specific Ag, non-numeric [facility] Serum results) Medical, ) ID Date Data Source [id number] 2018 12:00:00 AM EST [facility] ([facility], ) Name Value Range Interpretation Description Data Sup porting Code Source(s) Document(s ) Hemoglobin 5.5 % Normal (applies to MEDGEN (St A1c/Hemoglobin. non-numeric [facility] total in Blood results) Medical, ) ID Date Data Source [id number] 2018 12:00:00 AM EST [facility] ([facility], ) Name Value Range Interpretation Description Data Sup porting Code Source(s) Document(s ) Vitamin B12 228 pg/mL Below low normal MEDGEN ([facility], ) Folate 13.5 Normal (applies to MEDGEN (St (Folic ng/mL non-numeric [facility] Acid), Serum results) [facility], ) ID Date Data Source [id number] 2018 12:00:00 AM EST MEDGEN ([facility]) Name Value Range Interpretation Description Data Sup porting Code Source(s) Document(s ) Bilirubin.c 0.17 mg/dL Normal (applies to MEDGEN ( St onjugated non-numeric [facility] [Mass/volum results) [facility], ) e] in Serum or Plasma ID Date Data Source [id number] 2018 12:00:00 AM EST MEDGEN ([facility]) Name Value Range Interpretation Description Data Sup porting Code Source(s) Document(s ) Cholesterol 159 Normal (applies MEDGEN (St [Mass/volume] in mg/dL to non-numeric [facility] Serum or Plasma results) [facility], ) Triglyceride 243 Above high normal MEDGEN (S t [Mass/volume] in mg/dL [facility] Serum or Plasma [facility], ) HDL Cholesterol 41 mg/dL Normal (applies MEDGEN ( St to non-numeric [facility] results) [facility], ) VLDL Cholesterol 49 mg/dL Above high normal MEDGE N ([facility]) LDL Cholesterol 69 mg/dL Normal (applies MEDGEN ( St Calc to non-numeric [facility] results) [facility], ) ID Date Data Source [id number] 2018 12:00:00 AM EST MEDGEN ([facility]) Name Value Range Interpretation Description Data Sup porting Code Source(s) Document(s ) Glucose 109 Above high MEDGEN (St [Mass/volume] in mg/dL normal [facility] Urine collected for Medical, unspecified PC) duration Creatinine 1.22 Normal (applies MEDGEN (St [Interpretation] in mg/dL to non-numeric [facility] Urine results) [facility], ) Urea nitrogen 31 mg/dL Above high MEDGEN (St [Mass/volume] in normal [facility] Serum or Plasma [facility], ) eGFR If NonAfricn 55 Below low normal MEDGE N (St Am mL/min/1 [facility] .73 Medical, ) eGFR If Africn Am 63 Normal (applies MEDGEN (St mL/min/1 to non-numeric [facility] .73 results) Medical, ) BUN/Creatinine 25 Above high MEDGEN (St Ratio normal [facility], ) Sodium 144 Normal (applies MEDGEN (St [Moles/volume] in mmol/L to non-numeric [facility] Serum or Plasma results) Medical, ) Potassium 4.4 Normal (applies MEDGEN (St [Mass/volume] in mmol/L to non-numeric [facility] Blood results) Medical, ) Chloride 109 Above high MEDGEN (St [Moles/volume] in mmol/L normal [facility] Serum or Plasma [facility], ) Carbon dioxide, 19 Below low normal MEDGEN (St total mmol/L [facility] [Moles/volume] in Medical, Serum or Plasma PC) Calcium 9.7 Normal (applies MEDGEN (St [Moles/volume] in mg/dL to non-numeric [facility] Urine collected for results) Medical, unspecified PC) duration Protein 7.1 g/dL Normal (applies MEDGEN (St [Mass/volume] in to non-numeric [facility] Serum or Plasma results) Medical, ) Microalbumin 4.7 g/dL Normal (applies MEDGEN (St [Mass/time] in to non-numeric [facility] Urine collected for results) Medical, unspecified PC) duration Globulin, Total 2.4 g/dL Normal (applies MEDGEN ( St to non-numeric [facility] results) Medical, ) A/G Ratio 2.0 Normal (applies MEDGEN (St to non-numeric [facility] results) Medical, ) Bilirubin.total 0.6 Normal (applies MEDGEN ( St [Mass/volume] in mg/dL to non-numeric [facility] Serum or Plasma results) Medical, ) Alkaline 74 IU/L Normal (applies MEDGEN (St phosphatase to non-numeric [facility] [Enzymatic results) Medical, activity/volume] in PC) Serum, Plasma or Blood Aspartate 17 IU/L Normal (applies MEDGEN (St aminotransferase to non-numeric [facility] [Enzymatic results) Medical, activity/volume] in PC) Serum or Plasma Alanine 15 IU/L Normal (applies MEDGEN (St aminotransferase to non-numeric [facility] [Enzymatic results) Medical, activity/volume] in PC) Serum or Plasma ID Date Data Source [id number] 2018 12:00:00 AM EST [facility] ([facility], ) Name Value Range Interpretation Description Data Sup porting Code Source(s) Document(s ) Erythrocytes 5.31 Normal (applies MEDGEN (St [#/volume] in x10E6/uL to non-numeric [facility] Blood by results) Medical, ) Automated count Leukocytes 6.3 Normal (applies MEDGEN (St [#/volume] in x10E3/uL to non-numeric [facility] Blood by results) Medical, ) Automated count Hematocrit 46.5 % Normal (applies MEDGEN (St [Volume to non-numeric [facility] Fraction] of results) Medical, ) Blood by Automated count Hemoglobin 15.5 Normal (applies MEDGEN (St [Mass/volume] in g/dL to non-numeric [facility] Blood results) Medical, ) MCV 88 fL Normal (applies MEDGEN (St to non-numeric [facility] results) Medical, ) MCHC 33.3 Normal (applies MEDGEN (St g/dL to non-numeric [facility] results) Medical, ) MCH 29.2 pg Normal (applies MEDGEN (St to non-numeric [facility] results) Medical, ) RDW 14.9 % Normal (applies MEDGEN (St to non-numeric [facility] results) Medical, ) Neutrophils [#] 46 % Normal (applies MEDGEN ( St in Body fluid by to non-numeric [facility] Manual count results) Medical, ) Platelets 247 Normal (applies MEDGEN (St [#/area] in x10E3/uL to non-numeric [facility] Blood by results) Medical, ) Microscopy high power field Lymphs 44 % Normal (applies MEDGEN (St to non-numeric [facility] results) Medical, ) Eos 3 % Normal (applies MEDGEN (St to non-numeric [facility] results) Medical, ) Monocytes 7 % Normal (applies MEDGEN (St [#/volume] in to non-numeric [facility] Cord blood results) Medical, ) Basos 0 % Normal (applies MEDGEN (St to non-numeric [facility] results) Medical, ) Neutrophils 2.9 Normal (applies MEDGEN (St (Absolute) x10E3/uL to non-numeric [facility] results) Medical, ) Lymphs 2.8 Normal (applies MEDGEN (St (Absolute) x10E3/uL to non-numeric [facility] results) Medical, ) Monocytes(Absolu 0.5 Normal (applies MEDGEN (St te) x10E3/uL to non-numeric [facility] results) Medical, ) Eos (Absolute) 0.2 Normal (applies MEDGEN (S t x10E3/uL to non-numeric [facility] results) Medical, ) Baso (Absolute) 0.0 Normal (applies [facility]GEN ( St x10E3/uL to non-numeric [facility] results) Medical, ) Immature 0 % Normal (applies [facility] (St Granulocytes to non-numeric [facility] results) Medical, ) Immature Grans 0.0 Normal (applies [facility] (S t (Abs) x10E3/uL to non-numeric [facility] results) Medical, ) ID Date Data Source [id number] 2018 12:00:00 AM EST [facility] ([facility], ) Name Value Range Interpretation Description Data Sup porting Code Source(s) Document(s ) Vitamin D, 13.1 Below low normal [facility] (St 25-Hydroxy ng/mL [facility], ) ID Date Data Source [id number] 2018 12:00:00 AM EST [facility] ([facility], ) Name Value Range Interpretation Description Data Sup porting Code Source(s) Document(s ) Prostate 1.5 ng/mL Normal (applies to [facility] (St Specific Ag, non-numeric [facility] Serum results) Medical, ) ID Date Data Source [id number] 2018 12:00:00 AM EST [facility] ([facility], ) Name Value Range Interpretation Description Data Sup porting Code Source(s) Document(s ) Hemoglobin 5.5 % Normal (applies to [facility] (St A1c/Hemoglobin. non-numeric [facility] total in Blood results) Medical, ) ID Date Data Source [id number] 2018 12:00:00 AM EST [facility] ([facility], ) Name Value Range Interpretation Description Data Sup porting Code Source(s) Document(s ) Vitamin B12 228 pg/mL Below low normal [facility] ([facility], ) Folate 13.5 Normal (applies to [facility] (St (Folic ng/mL non-numeric [facility] Acid), Serum results) [facility], ) ID Date Data Source [id number] 2018 12:00:00 AM EST [facility] ([facility]) Name Value Range Interpretation Description Data Sup porting Code Source(s) Document(s ) Bilirubin.c 0.17 mg/dL Normal (applies to [facility] ( St onjugated non-numeric [facility] [Mass/volum results) [facility], ) e] in Serum or Plasma ID Date Data Source [id number] 2018 12:00:00 AM EST [facility] ([facility], ) Name Value Range Interpretation Description Data Sup porting Code Source(s) Document(s ) Cholesterol 159 Normal (applies [facility] (St [Mass/volume] in mg/dL to non-numeric [facility] Serum or Plasma results) [facility], ) HDL Cholesterol 41 mg/dL Normal (applies [facility] ( St to non-numeric [facility] results) [facility], ) Triglyceride 243 Above high normal [facility]GEN (S t [Mass/volume] in mg/dL [facility] Serum or Plasma [facility], ) VLDL Cholesterol 49 mg/dL Above high normal MEDGE N ([facility], ) LDL Cholesterol 69 mg/dL Normal (applies [facility] ( St Calc to non-numeric [facility] results) [facility], ) ID Date Data Source [id number] 2018 12:00:00 AM EST [facility] ([facility], ) Name Value Range Interpretation Description Data Sup porting Code Source(s) Document(s ) Glucose 109 Above high [facility]GEN (St [Mass/volume] in mg/dL normal [facility] Urine collected for Medical, unspecified PC) duration Urea nitrogen 31 mg/dL Above high [facility] (St [Mass/volume] in normal [facility] Serum or Plasma [facility], ) Creatinine 1.22 Normal (applies [facility] (St [Interpretation] in mg/dL to non-numeric [facility] Urine results) [facility], ) eGFR If NonAfricn 55 Below low normal MEDGE N (St Am mL/min/1 [facility] .73 Medical, PC) BUN/Creatinine 25 Above high [facility] (St Ratio normal [facility] Medical, PC) eGFR If Africn Am 63 Normal (applies [facility] (St mL/min/1 to non-numeric [facility] .73 results) Medical, PC) Sodium 144 Normal (applies [facility] (St [Moles/volume] in mmol/L to non-numeric [facility] Serum or Plasma results) Medical, PC) Chloride 109 Above high [facility] (St [Moles/volume] in mmol/L normal [facility] Serum or Plasma Medical, PC) Potassium 4.4 Normal (applies [facility] (St [Mass/volume] in mmol/L to non-numeric [facility] Blood results) Medical, PC) Calcium 9.7 Normal (applies [facility] (St [Moles/volume] in mg/dL to non-numeric [facility] Urine collected for results) Medical, unspecified PC) duration Carbon dioxide, 19 Below low normal [facility] (St total mmol/L [facility] [Moles/volume] in Medical, Serum or Plasma PC) Protein 7.1 g/dL Normal (applies [facility] (St [Mass/volume] in to non-numeric [facility] Serum or Plasma results) Medical, PC) Microalbumin 4.7 g/dL Normal (applies [facility] (St [Mass/time] in to non-numeric [facility] Urine collected for results) Medical, unspecified PC) duration Globulin, Total 2.4 g/dL Normal (applies [facility] ( St to non-numeric [facility] results) Medical, PC) A/G Ratio 2.0 Normal (applies [facility] (St to non-numeric [facility] results) Medical, PC) Bilirubin.total 0.6 Normal (applies [facility] ( St [Mass/volume] in mg/dL to non-numeric [facility] Serum or Plasma results) Medical, PC) Aspartate 17 IU/L Normal (applies [facility] (St aminotransferase to non-numeric [facility] [Enzymatic results) Medical, activity/volume] in PC) Serum or Plasma Alkaline 74 IU/L Normal (applies [facility] (St phosphatase to non-numeric [facility] [Enzymatic results) Medical, activity/volume] in PC) Serum, Plasma or Blood Alanine 15 IU/L Normal (applies [facility] (St aminotransferase to non-numeric [facility] [Enzymatic results) Medical, activity/volume] in ) Serum or Plasma ID Date Data Source [id number] 2018 12:00:00 AM EST [facility] ([facility], ) Name Value Range Interpretation Description Data Sup porting Code Source(s) Document(s ) Leukocytes 6.3 Normal (applies [facility] (St [#/volume] in x10E3/uL to non-numeric [facility] Blood by results) Medical, ) Automated count Erythrocytes 5.31 Normal (applies [facility] (St [#/volume] in x10E6/uL to non-numeric [facility] Blood by results) Medical, ) Automated count Hemoglobin 15.5 Normal (applies [facility] (St [Mass/volume] in g/dL to non-numeric [facility] Blood results) Medical, ) Hematocrit 46.5 % Normal (applies [facility] (St [Volume to non-numeric [facility] Fraction] of results) Medical, ) Blood by Automated count MCV 88 fL Normal (applies [facility] (St to non-numeric [facility] results) Medical, ) MCH 29.2 pg Normal (applies [facility] (St to non-numeric [facility] results) Medical, ) MCHC 33.3 Normal (applies [facility] (St g/dL to non-numeric [facility] results) Medical, ) Platelets 247 Normal (applies [facility] (St [#/area] in x10E3/uL to non-numeric [facility] Blood by results) Medical, ) Microscopy high power field RDW 14.9 % Normal (applies [facility] (St to non-numeric [facility] results) Medical, ) Neutrophils [#] 46 % Normal (applies [facility] ( St in Body fluid by to non-numeric [facility] Manual count results) Medical, ) Lymphs 44 % Normal (applies [facility] (St to non-numeric [facility] results) Medical, ) Monocytes 7 % Normal (applies [facility] (St [#/volume] in to non-numeric [facility] Cord blood results) Medical, ) Eos 3 % Normal (applies [facility] (St to non-numeric [facility] results) Medical, ) Basos 0 % Normal (applies [facility] (St to non-numeric [facility] results) Medical, ) Neutrophils 2.9 Normal (applies [facility] (St (Absolute) x10E3/uL to non-numeric [facility] results) Medical, ) Lymphs 2.8 Normal (applies [facility] (St (Absolute) x10E3/uL to non-numeric [facility] results) Medical, PC) Eos (Absolute) 0.2 Normal (applies [facility] (S t x10E3/uL to non-numeric [facility] results) Medical, PC) Monocytes(Absolu 0.5 Normal (applies [facility] (St te) x10E3/uL to non-numeric [facility] results) Medical, ) Baso (Absolute) 0.0 Normal (applies [facility] ( St x10E3/uL to non-numeric [facility] results) Medical, PC) Immature 0 % Normal (applies [facility] (St Granulocytes to non-numeric [facility] results) Medical, PC) Immature Grans 0.0 Normal (applies [facility]GEN (S t (Abs) x10E3/uL to non-numeric [facility] results) Medical, ) ID Date Data Source [id number] 04/11/2018 12:00:00 AM EDT [facility] ([facility], ) Name Value Range Interpretation Description Data Sup porting Code Source(s) Document(s ) INR 1.0 Normal (applies [facility] (St to non-numeric [facility] results) Medical, ) aPTT 30 sec Normal (applies [facility] (St to non-numeric [facility] results) Medical, ) Prothrombin 10.5 sec Normal (applies [facility] (St Time to non-numeric [facility] results) Medical, ) ID Date Data Source [id number] 04/11/2018 12:00:00 AM EDT [facility] ([facility], ) Name Value Range Interpretation Description Data Sup porting Code Source(s) Document(s ) WBC 0-5 Normal (applies to [facility] (St non-numeric [facility] results) Medical, ) Epithelial None seen Normal (applies to [facility] (St Cells (non non-numeric [facility] renal) results) Medical, ) RBC 0-2 Normal (applies to [facility] (St non-numeric [facility] results) Medical, PC) Bacteria None seen Normal (applies to [facility] (St [Presence] in non-numeric [facility] Prostatic results) Medical, ) fluid by Light microscopy ID Date Data Source [id number] 04/11/2018 12:00:00 AM EDT [facility] ([facility]) Name Value Range Interpretation Description Data Sup porting Code Source(s) Document(s ) Specific gravity 1.023 Normal (applies [facility] (St of Pericardial to non-numeric [facility] fluid by results) Medical, Refractometry PC) pH of Lower 5.0 Normal (applies [facility] (St respiratory to non-numeric [facility] specimen results) Medical, PC) Urine-Color Yellow Normal (applies [facility] (St to non-numeric [facility] results) Medical, PC) Appearance of Clear Normal (applies [facility] (St Abdomen to non-numeric [facility] results) Medical, PC) WBC Esterase Negative Normal (applies [facility] (St to non-numeric [facility] results) Medical, PC) Protein Negative Normal (applies [facility] (St [Mass/volume] in to non-numeric [facility] Lower results) Medical, respiratory PC) specimen Ketones Negative Normal (applies [facility] (St [Presence] in to non-numeric [facility] Blood by Tablet results) Medical, PC) Glucose Negative Normal (applies [facility] (St [Mass/volume] in to non-numeric [facility] Urine collected results) Medical, for unspecified PC) duration Occult Blood Trace Abnormal [facility] (St (applies to [facility] non-numeric Medical, results) PC) Bilirubin Negative Normal (applies [facility] (St [Presence] in to non-numeric [facility] Peritoneal fluid results) Medical, PC) Nitrite, Urine Negative Normal (applies [facility] (S t to non-numeric [facility] results) Medical, PC) Urobilinogen,Sabrina 0.2 EU/dL Normal (applies [facility] (St i-Qn to non-numeric [facility] results) Medical, PC) Microscopic See below: Normal (applies [facility] (St Examination to non-numeric [facility] results) Medical, PC) ID Date Data Source [id number] 04/11/2018 12:00:00 AM EDT [facility] ([facility] Name Value Range Interpretation Description Data Sup porting Code Source(s) Document(s ) Glucose 93 mg/dL Normal (applies [facility] (St [Mass/volume] in to non-numeric [facility] Urine collected for results) Medical, unspecified PC) duration Urea nitrogen 34 mg/dL Above high [facility]GEN (St [Mass/volume] in normal [facility] Serum or Plasma Medical, ) Creatinine 1.17 Normal (applies [facility] (St [Interpretation] in mg/dL to non-numeric [facility] Urine results) Medical, ) eGFR If NonAfricn 58 Below low normal MEDGE N (St Am mL/min/1 [facility] .73 Medical, PC) eGFR If Africn Am 67 Normal (applies [facility] (St mL/min/1 to non-numeric [facility] .73 results) Medical, PC) BUN/Creatinine 29 Above high MEDGEN (St Ratio normal [facility] Medical, PC) Sodium 141 Normal (applies [facility] (St [Moles/volume] in mmol/L to non-numeric [facility] Serum or Plasma results) Medical, PC) Potassium 4.1 Normal (applies [facility] (St [Mass/volume] in mmol/L to non-numeric [facility] Blood results) Medical, PC) Carbon dioxide, 20 Normal (applies [facility] ( St total mmol/L to non-numeric [facility] [Moles/volume] in results) Medical, Serum or Plasma PC) Chloride 103 Normal (applies [facility] (St [Moles/volume] in mmol/L to non-numeric [facility] Serum or Plasma results) Medical, PC) Calcium 9.6 Normal (applies [facility] (St [Moles/volume] in mg/dL to non-numeric [facility] Urine collected for results) Medical, unspecified PC) duration Protein 7.3 g/dL Normal (applies [facility] (St [Mass/volume] in to non-numeric [facility] Serum or Plasma results) Medical, ) Globulin, Total 2.7 g/dL Normal (applies [facility] ( St to non-numeric [facility] results) Medical, PC) Microalbumin 4.6 g/dL Normal (applies [facility] (St [Mass/time] in to non-numeric [facility] Urine collected for results) Medical, unspecified PC) duration A/G Ratio 1.7 Normal (applies [facility] (St to non-numeric [facility] results) Medical, PC) Bilirubin.total 0.8 Normal (applies [facility] ( St [Mass/volume] in mg/dL to non-numeric [facility] Serum or Plasma results) Medical, PC) Aspartate 20 IU/L Normal (applies [facility] (St aminotransferase to non-numeric [facility] [Enzymatic results) Medical, activity/volume] in PC) Serum or Plasma Alkaline 67 IU/L Normal (applies [facility] (St phosphatase to non-numeric [facility] [Enzymatic results) Medical, activity/volume] in ) Serum, Plasma or Blood Alanine 19 IU/L Normal (applies [facility] (St aminotransferase to non-numeric [facility] [Enzymatic results) Medical, activity/volume] in ) Serum or Plasma ID Date Data Source [id number] 04/11/2018 12:00:00 AM EDT [facility] ([facility], ) Name Value Range Interpretation Description Data Sup porting Code Source(s) Document(s ) Leukocytes 7.2 Normal (applies [facility] (St [#/volume] in x10E3/uL to non-numeric [facility] Blood by results) Medical, ) Automated count Erythrocytes 5.08 Normal (applies [facility] (St [#/volume] in x10E6/uL to non-numeric [facility] Blood by results) Medical, ) Automated count Hemoglobin 14.7 Normal (applies [facility] (St [Mass/volume] in g/dL to non-numeric [facility] Blood results) Medical, ) Hematocrit 42.8 % Normal (applies [facility] (St [Volume to non-numeric [facility] Fraction] of results) [facility], ) Blood by Automated count MCV 84 fL Normal (applies [facility]GEN (St to non-numeric [facility] results) Medical, ) MCH 28.9 pg Normal (applies [facility]GEN (St to non-numeric [facility] results) Medical, ) MCHC 34.3 Normal (applies [facility] (St g/dL to non-numeric [facility] results) Medical, ) Platelets 241 Normal (applies [facility] (St [#/area] in x10E3/uL to non-numeric [facility] Blood by results) Medical, ) Microscopy high power field RDW 15.1 % Normal (applies [facility] (St to non-numeric [facility] results) [facility], ) Neutrophils [#] 52 % Normal (applies [facility] ( St in Body fluid by to non-numeric [facility] Manual count results) [facility], ) Lymphs 37 % Normal (applies [facility]GEN (St to non-numeric [facility] results) Medical, ) Monocytes 6 % Normal (applies [facility]GEN (St [#/volume] in to non-numeric [facility] Cord blood results) Medical, ) Basos 1 % Normal (applies [facility]GEN (St to non-numeric [facility] results) Medical, ) Eos 4 % Normal (applies [facility] (St to non-numeric [facility] results) Medical, ) Lymphs 2.7 Normal (applies [facility] (St (Absolute) x10E3/uL to non-numeric [facility] results) Medical, ) Neutrophils 3.8 Normal (applies [facility] (St (Absolute) x10E3/uL to non-numeric [facility] results) Medical, ) Monocytes(Absolu 0.5 Normal (applies MEDGEN (St te) x10E3/uL to non-numeric [facility] results) Medical, ) Eos (Absolute) 0.3 Normal (applies [facility]GEN (S t x10E3/uL to non-numeric [facility] results) Medical, ) Baso (Absolute) 0.0 Normal (applies [facility] ( St x10E3/uL to non-numeric [facility] results) Medical, ) Immature 0 % Normal (applies [facility] (St Granulocytes to non-numeric [facility] results) Medical, ) Immature Grans 0.0 Normal (applies [facility]GEN (S t (Abs) x10E3/uL to non-numeric [facility] results) Medical, ) ID Date Data Source [id number] 04/11/2018 12:00:00 AM EDT [facility] ([facility], ) Name Value Range Interpretation Description Data Sup porting Code Source(s) Document(s ) INR 1.0 Normal (applies [facility] (St to non-numeric [facility] results) Medical, ) aPTT 30 sec Normal (applies [facility] (St to non-numeric [facility] results) Medical, ) Prothrombin 10.5 sec Normal (applies [facility] (St Time to non-numeric [facility] results) Medical, ) ID Date Data Source [id number] 04/11/2018 12:00:00 AM EDT [facility] ([facility], ) Name Value Range Interpretation Description Data Sup porting Code Source(s) Document(s ) WBC 0-5 Normal (applies to [facility] (St non-numeric [facility] results) Medical, ) RBC 0-2 Normal (applies to [facility] (St non-numeric [facility] results) Medical, PC) Bacteria None seen Normal (applies to [facility] (St [Presence] in non-numeric [facility] Prostatic results) Medical, PC) fluid by Light microscopy Epithelial None seen Normal (applies to [facility] (St Cells (non non-numeric [facility] renal) results) Medical, PC) ID Date Data Source [id number] 04/11/2018 12:00:00 AM EDT [facility] ([facility]) Name Value Range Interpretation Description Data Sup porting Code Source(s) Document(s ) Specific gravity 1.023 Normal (applies [facility] (St of Pericardial to non-numeric [facility] fluid by results) Medical, Refractometry PC) pH of Lower 5.0 Normal (applies [facility] (St respiratory to non-numeric [facility] specimen results) Medical, PC) Urine-Color Yellow Normal (applies [facility] (St to non-numeric [facility] results) Medical, PC) Appearance of Clear Normal (applies [facility] (St Abdomen to non-numeric [facility] results) Medical, PC) WBC Esterase Negative Normal (applies [facility] (St to non-numeric [facility] results) Medical, PC) Protein Negative Normal (applies [facility] (St [Mass/volume] in to non-numeric [facility] Lower results) Medical, respiratory PC) specimen Glucose Negative Normal (applies [facility] (St [Mass/volume] in to non-numeric [facility] Urine collected results) Medical, for unspecified PC) duration Ketones Negative Normal (applies [facility] (St [Presence] in to non-numeric [facility] Blood by Tablet results) Medical, PC) Bilirubin Negative Normal (applies [facility] (St [Presence] in to non-numeric [facility] Peritoneal fluid results) Medical, PC) Occult Blood Trace Abnormal MED[facility] (St (applies to [facility] non-numeric Medical, results) PC) Nitrite, Urine Negative Normal (applies [facility] (S t to non-numeric [facility] results) Medical, PC) Urobilinogen,Sabrina 0.2 EU/dL Normal (applies [facility] (St i-Qn to non-numeric [facility] results) Medical, PC) Microscopic See below: Normal (applies [facility] (St Examination to non-numeric [facility] results) Medical, PC) ID Date Data Source [id number] 04/11/2018 12:00:00 AM EDT [facility] ([facility], ) Name Value Range Interpretation Description Data Sup porting Code Source(s) Document(s ) Glucose 93 mg/dL Normal (applies [facility] (St [Mass/volume] in to non-numeric [facility] Urine collected for results) Medical, unspecified PC) duration Urea nitrogen 34 mg/dL Above high [facility]GEN (St [Mass/volume] in normal [facility] Serum or Plasma Medical, PC) eGFR If NonAfricn 58 Below low normal MEDGE N (St Am mL/min/1 [facility] .73 Medical, PC) Creatinine 1.17 Normal (applies [facility] (St [Interpretation] in mg/dL to non-numeric [facility] Urine results) Medical, PC) eGFR If Africn Am 67 Normal (applies [facility] (St mL/min/1 to non-numeric [facility] .73 results) Medical, PC) BUN/Creatinine 29 Above high MEDGEN (St Ratio normal [facility], ) Sodium 141 Normal (applies [facility]GEN (St [Moles/volume] in mmol/L to non-numeric [facility] Serum or Plasma results) Medical, PC) Potassium 4.1 Normal (applies [facility]GEN (St [Mass/volume] in mmol/L to non-numeric [facility] Blood results) Medical, PC) Chloride 103 Normal (applies [facility]GEN (St [Moles/volume] in mmol/L to non-numeric [facility] Serum or Plasma results) Medical, PC) Carbon dioxide, 20 Normal (applies [facility]GEN ( St total mmol/L to non-numeric [facility] [Moles/volume] in results) Medical, Serum or Plasma PC) Calcium 9.6 Normal (applies [facility] (St [Moles/volume] in mg/dL to non-numeric [facility] Urine collected for results) Medical, unspecified PC) duration Protein 7.3 g/dL Normal (applies [facility] (St [Mass/volume] in to non-numeric [facility] Serum or Plasma results) Medical, PC) Microalbumin 4.6 g/dL Normal (applies [facility]GEN (St [Mass/time] in to non-numeric [facility] Urine collected for results) Medical, unspecified PC) duration Globulin, Total 2.7 g/dL Normal (applies [facility] ( St to non-numeric [facility] results) Medical, PC) Bilirubin.total 0.8 Normal (applies [facility]GEN ( St [Mass/volume] in mg/dL to non-numeric [facility] Serum or Plasma results) Medical, ) A/G Ratio 1.7 Normal (applies [facility]GEN (St to non-numeric [facility] results) [facility], ) Aspartate 20 IU/L Normal (applies [facility]GEN (St aminotransferase to non-numeric [facility] [Enzymatic results) Medical, activity/volume] in ) Serum or Plasma Alkaline 67 IU/L Normal (applies [facility]GEN (St phosphatase to non-numeric [facility] [Enzymatic results) Medical, activity/volume] in ) Serum, Plasma or Blood Alanine 19 IU/L Normal (applies [facility]GEN (St aminotransferase to non-numeric [facility] [Enzymatic results) Medical, activity/volume] in ) Serum or Plasma ID Date Data Source [id number] 04/11/2018 12:00:00 AM EDT [facility] ([facility], ) Name Value Range Interpretation Description Data Sup porting Code Source(s) Document(s ) Leukocytes 7.2 Normal (applies [facility]GEN (St [#/volume] in x10E3/uL to non-numeric [facility] Blood by results) [facility], ) Automated count Erythrocytes 5.08 Normal (applies [facility]GEN (St [#/volume] in x10E6/uL to non-numeric [facility] Blood by results) [facility], ) Automated count Hemoglobin 14.7 Normal (applies [facility] (St [Mass/volume] in g/dL to non-numeric [facility] Blood results) [facility], ) Hematocrit 42.8 % Normal (applies [facility]GEN (St [Volume to non-numeric [facility] Fraction] of results) [facility], ) Blood by Automated count MCV 84 fL Normal (applies [facility]GEN (St to non-numeric [facility] results) [facility], ) MCH 28.9 pg Normal (applies [facility]GEN (St to non-numeric [facility] results) [facility], ) MCHC 34.3 Normal (applies [facility]GEN (St g/dL to non-numeric [facility] results) [facility], ) Platelets 241 Normal (applies MEDGEN (St [#/area] in x10E3/uL to non-numeric [facility] Blood by results) [facility], ) Microscopy high power field RDW 15.1 % Normal (applies [facility]GEN (St to non-numeric [facility] results) Medical, ) Neutrophils [#] 52 % Normal (applies MEDGEN ( St in Body fluid by to non-numeric [facility] Manual count results) Medical, ) Lymphs 37 % Normal (applies [facility]GEN (St to non-numeric [facility] results) Medical, ) Monocytes 6 % Normal (applies [facility]GEN (St [#/volume] in to non-numeric [facility] Cord blood results) Medical, ) Eos 4 % Normal (applies [facility]GEN (St to non-numeric [facility] results) Medical, ) Basos 1 % Normal (applies [facility]GEN (St to non-numeric [facility] results) Medical, ) Lymphs 2.7 Normal (applies [facility]GEN (St (Absolute) x10E3/uL to non-numeric [facility] results) Medical, ) Neutrophils 3.8 Normal (applies MEDGEN (St (Absolute) x10E3/uL to non-numeric [facility] results) Medical, ) Monocytes(Absolu 0.5 Normal (applies MEDGEN (St te) x10E3/uL to non-numeric [facility] results) Medical, ) Baso (Absolute) 0.0 Normal (applies MEDGEN ( St x10E3/uL to non-numeric [facility] results) Medical, ) Eos (Absolute) 0.3 Normal (applies [facility]GEN (S t x10E3/uL to non-numeric [facility] results) Medical, ) Immature 0 % Normal (applies [facility]GEN (St Granulocytes to non-numeric [facility] results) Medical, ) Immature Grans 0.0 Normal (applies [facility]GEN (S t (Abs) x10E3/uL to non-numeric [facility] results) Medical, ) ID Date Data Source [id number] 09/19/2017 12:00:00 AM EST [facility] ([facility], ) Name Value Range Interpretation Description Data Sup porting Code Source(s) Document(s ) INR 1.1 Normal (applies [facility] (St to non-numeric [facility] results) Medical, ) Prothrombin 11.3 sec Normal (applies [facility] (St Time to non-numeric [facility] results) Medical, ) aPTT 31 sec Normal (applies [facility] (St to non-numeric [facility] results) Medical, ) ID Date Data Source [id number] 09/19/2017 12:00:00 AM EST [facility] ([facility], ) Name Value Range Interpretation Description Data Sup porting Code Source(s) Document(s ) Glucose, Serum 108 Above high MEDGEN (St mg/dL normal [facility], ) Urea nitrogen 18 mg/dL Normal (applies [facility] (St [Mass/volume] in to non-numeric [facility] Serum or Plasma results) Medical, ) Creatinine, Serum 1.01 Normal (applies [facility] (St mg/dL to non-numeric [facility] results) Medical, ) eGFR If NonAfricn 70 Normal (applies [facility]GEN (St Am mL/min/1 to non-numeric [facility] .73 results) Medical, ) eGFR If Africn Am 81 Normal (applies [facility]GEN (St mL/min/1 to non-numeric [facility] .73 results) Medical, ) BUN/Creatinine 18 Normal (applies [facility]GEN (S t Ratio to non-numeric [facility] results) Medical, ) Sodium 140 Normal (applies [facility] (St [Moles/volume] in mmol/L to non-numeric [facility] Serum or Plasma results) Medical, ) Potassium, Serum 4.6 Normal (applies [facility]GEN (St mmol/L to non-numeric [facility] results) Medical, ) Chloride 99 Normal (applies [facility]GEN (St [Moles/volume] in mmol/L to non-numeric [facility] Serum or Plasma results) [facility], ) Calcium, Serum 9.8 Normal (applies [facility]GEN (S t mg/dL to non-numeric [facility] results) Medical, ) Protein 7.3 g/dL Normal (applies [facility] (St [Mass/volume] in to non-numeric [facility] Serum or Plasma results) Medical, ) Globulin, Total 2.7 g/dL Normal (applies [facility]GEN ( St to non-numeric [facility] results) Medical, ) Albumin, Serum 4.6 g/dL Normal (applies [facility]GEN (S t to non-numeric [facility] results) [facility], ) A/G Ratio 1.7 Normal (applies [facility] (St to non-numeric [facility] results) Medical, ) Bilirubin.total 0.9 Normal (applies [facility] ( St [Mass/volume] in mg/dL to non-numeric [facility] Serum or Plasma results) Medical, ) Alkaline 71 IU/L Normal (applies [facility] (St Phosphatase, S to non-numeric [facility] results) Medical, ) Aspartate 19 IU/L Normal (applies [facility] (St aminotransferase to non-numeric [facility] [Enzymatic results) Medical, activity/volume] in PC) Serum or Plasma ID Date Data Source [id number] 09/19/2017 12:00:00 AM EST [facility] ([facility], ) Name Value Range Interpretation Description Data Sup porting Code Source(s) Document(s ) Leukocytes 9.0 Normal (applies [facility]GEN (St [#/volume] in x10E3/uL to non-numeric [facility] Blood by results) Medical, ) Automated count Hemoglobin 17.3 Normal (applies [facility] (St [Mass/volume] in g/dL to non-numeric [facility] Blood results) Medical, ) Erythrocytes 5.90 Above high normal MEDGEN (S t [#/volume] in x10E6/uL [facility] Blood by [facility], ) Automated count Hematocrit 50.2 % Normal (applies [facility] (St [Volume to non-numeric [facility] Fraction] of results) Medical, ) Blood by Automated count MCV 85 fL Normal (applies [facility] (St to non-numeric [facility] results) Medical, ) MCH 29.3 pg Normal (applies [facility] (St to non-numeric [facility] results) Medical, ) MCHC 34.5 Normal (applies [facility] (St g/dL to non-numeric [facility] results) Medical, ) RDW 14.2 % Normal (applies [facility] (St to non-numeric [facility] results) Medical, ) Platelets 254 Normal (applies [facility] (St [#/area] in x10E3/uL to non-numeric [facility] Blood by results) Medical, ) Microscopy high power field Neutrophils [#] 64 % Normal (applies [facility] ( St in Body fluid by to non-numeric [facility] Manual count results) Medical, ) Lymphs 30 % Normal (applies [facility] (St to non-numeric [facility] results) Medical, ) Eos 1 % Normal (applies [facility] (St to non-numeric [facility] results) Medical, ) Monocytes 4 % Normal (applies [facility] (St [#/volume] in to non-numeric [facility] Cord blood results) Medical, ) Basos 1 % Normal (applies [facility] (St to non-numeric [facility] results) Medical, ) Lymphs 2.7 Normal (applies [facility] (St (Absolute) x10E3/uL to non-numeric [facility] results) Medical, ) Neutrophils 5.7 Normal (applies [facility] (St (Absolute) x10E3/uL to non-numeric [facility] results) Medical, ) Monocytes(Absolu 0.4 Normal (applies [facility]GEN (St te) x10E3/uL to non-numeric [facility] results) Medical, ) Eos (Absolute) 0.1 Normal (applies [facility] (S t x10E3/uL to non-numeric [facility] results) Medical, ) Baso (Absolute) 0.1 Normal (applies [facility] ( St x10E3/uL to non-numeric [facility] results) Medical, ) Immature 0 % Normal (applies [facility] (St Granulocytes to non-numeric [facility] results) [facility], ) Immature Grans 0.0 Normal (applies [facility] (S t (Abs) x10E3/uL to non-numeric [facility] results) [facility], ) ID Date Data Source [id number] 09/19/2017 12:00:00 AM EST [facility] ([facility], ) Name Value Range Interpretation Description Data Sup porting Code Source(s) Document(s ) INR 1.1 Normal (applies [facility] (St to non-numeric [facility] results) [facility], ) Prothrombin 11.3 sec Normal (applies [facility] (St Time to non-numeric [facility] results) [facility], ) aPTT 31 sec Normal (applies [facility] (St to non-numeric [facility] results) [facility], ) ID Date Data Source [id number] 09/19/2017 12:00:00 AM EST [facility] ([facility], ) Name Value Range Interpretation Description Data Sup porting Code Source(s) Document(s ) Glucose, Serum 108 Above high [facility] (St mg/dL normal [facility] [place], ) Urea nitrogen 18 mg/dL Normal (applies [facility] (St [Mass/volume] in to non-numeric [facility] Serum or Plasma results) [facility], ) Creatinine, Serum 1.01 Normal (applies [facility] (St mg/dL to non-numeric [facility] results) [facility], ) eGFR If NonAfricn 70 Normal (applies [facility] (St Am mL/min/1 to non-numeric [facility] .73 results) [facility], ) eGFR If Africn Am 81 Normal (applies [facility] (St mL/min/1 to non-numeric [facility] .73 results) [facility], ) BUN/Creatinine 18 Normal (applies [facility] (S t Ratio to non-numeric [facility] results) [facility], ) Potassium, Serum 4.6 Normal (applies [facility] (St mmol/L to non-numeric [facility] results) [facility], ) Sodium 140 Normal (applies [facility] (St [Moles/volume] in mmol/L to non-numeric [facility] Serum or Plasma results) [facility], ) Chloride 99 Normal (applies [facility] (St [Moles/volume] in mmol/L to non-numeric [facility] Serum or Plasma results) [facility], ) Calcium, Serum 9.8 Normal (applies [facility] (S t mg/dL to non-numeric [facility] results) [facility], ) Albumin, Serum 4.6 g/dL Normal (applies [facility] (S t to non-numeric [facility] results) [facility], ) Protein 7.3 g/dL Normal (applies [facility] (St [Mass/volume] in to non-numeric [facility] Serum or Plasma results) [facility], ) Globulin, Total 2.7 g/dL Normal (applies [facility] ( St to non-numeric [facility] results) [facility], ) Bilirubin.total 0.9 Normal (applies [facility] ( St [Mass/volume] in mg/dL to non-numeric [facility] Serum or Plasma results) [facility], ) A/G Ratio 1.7 Normal (applies [facility] (St to non-numeric [facility] results) [facility], ) Aspartate 19 IU/L Normal (applies [facility] (St aminotransferase to non-numeric [facility] [Enzymatic results) [facility], activity/volume] in ) Serum or Plasma Alkaline 71 IU/L Normal (applies [facility] (St Phosphatase, S to non-numeric [facility] results) [facility], ) ID Date Data Source [id number] 09/19/2017 12:00:00 AM EST [facility] ([facility], ) Name Value Range Interpretation Description Data Sup porting Code Source(s) Document(s ) Leukocytes 9.0 Normal (applies [facility] (St [#/volume] in x10E3/uL to non-numeric [facility] Blood by results) Medical, ) Automated count Erythrocytes 5.90 Above high normal [facility] (S t [#/volume] in x10E6/uL [facility] Blood by [facility], ) Automated count Hematocrit 50.2 % Normal (applies [facility] (St [Volume to non-numeric [facility] Fraction] of results) Medical, ) Blood by Automated count Hemoglobin 17.3 Normal (applies [facility] (St [Mass/volume] in g/dL to non-numeric [facility] Blood results) Medical, ) MCV 85 fL Normal (applies [facility] (St to non-numeric [facility] results) Medical, ) MCH 29.3 pg Normal (applies [facility] (St to non-numeric [facility] results) Medical, ) MCHC 34.5 Normal (applies [facility] (St g/dL to non-numeric [facility] results) Medical, ) Platelets 254 Normal (applies [facility] (St [#/area] in x10E3/uL to non-numeric [facility] Blood by results) Medical, ) Microscopy high power field RDW 14.2 % Normal (applies [facility] (St to non-numeric [facility] results) Medical, ) Neutrophils [#] 64 % Normal (applies [facility] ( St in Body fluid by to non-numeric [facility] Manual count results) Medical, ) Lymphs 30 % Normal (applies [facility] (St to non-numeric [facility] results) Medical, ) Monocytes 4 % Normal (applies [facility] (St [#/volume] in to non-numeric [facility] Cord blood results) Medical, ) Eos 1 % Normal (applies [facility] (St to non-numeric [facility] results) Medical, ) Neutrophils 5.7 Normal (applies [facility] (St (Absolute) x10E3/uL to non-numeric [facility] results) Medical, ) Basos 1 % Normal (applies [facility] (St to non-numeric [facility] results) Medical, ) Monocytes(Absolu 0.4 Normal (applies [facility] (St te) x10E3/uL to non-numeric [facility] results) Medical, ) Lymphs 2.7 Normal (applies [facility] (St (Absolute) x10E3/uL to non-numeric [facility] results) Medical, ) Eos (Absolute) 0.1 Normal (applies [facility] (S t x10E3/uL to non-numeric [facility] results) Medical, ) Baso (Absolute) 0.1 Normal (applies [facility] ( St x10E3/uL to non-numeric [facility] results) Medical, ) Immature 0 % Normal (applies [facility] (St Granulocytes to non-numeric [facility] results) Medical, ) Immature Grans 0.0 Normal (applies [facility] (S t (Abs) x10E3/uL to non-numeric [facility] results) Medical, ) ID Date Data Source [id number] 07/27/2017 12:00:00 AM EST [facility] ([facility], ) Name Value Range Interpretation Description Data Sup porting Code Source(s) Document(s ) No Urine Test not Normal (applies to [facility] (St Received performed non-numeric [facility] . results) Medical, ) ID Date Data Source [id number] 07/27/2017 12:00:00 AM EST [facility] ([facility], ) Name Value Range Interpretation Description Data Sup porting Code Source(s) Document(s ) Prostate 1.4 ng/mL Normal (applies to [facility] (St Specific Ag, non-numeric [facility] Serum results) [facility], ) ID Date Data Source [id number] 07/27/2017 12:00:00 AM EST [facility] ([facility], ) Name Value Range Interpretation Description Data Sup porting Code Source(s) Document(s ) Vitamin B12 296 pg/mL Normal (applies to [facility] (S t non-numeric [facility] results) Medical, ) Folate 8.5 ng/mL Normal (applies to [facility] (St (Folic non-numeric [facility] Acid), Serum results) [facility], ) ID Date Data Source [id number] 07/27/2017 12:00:00 AM EST [facility] ([facility], ) Name Value Range Interpretation Description Data Sup porting Code Source(s) Document(s ) Bilirubin.c 0.28 mg/dL Normal (applies to [facility] ( St onjugated non-numeric [facility] [Mass/volum results) Medical, ) e] in Serum or Plasma ID Date Data Source [id number] 07/27/2017 12:00:00 AM EST [facility] ([facility] [place]) Name Value Range Interpretation Description Data Sup porting Code Source(s) Document(s ) Cholesterol 152 Normal (applies [facility] (St [Mass/volume] in mg/dL to non-numeric [facility] Serum or Plasma results) Medical, ) HDL Cholesterol 47 mg/dL Normal (applies [facility] ( St to non-numeric [facility] results) [facility]) Triglyceride 131 Normal (applies [facility] (St [Mass/volume] in mg/dL to non-numeric [facility] Serum or Plasma results) [facility], ) VLDL Cholesterol 26 mg/dL Normal (applies [facility] (St Heriberto to non-numeric [facility]'s results) [facility], ) LDL Cholesterol 79 mg/dL Normal (applies [facility] ( St Calc to non-numeric [facility] results) [facility], ) ID Date Data Source [id number] 07/27/2017 12:00:00 AM EST [facility] ([facility] [place]) Name Value Range Interpretation Description Data Sup porting Code Source(s) Document(s ) pH of Lower Test not Normal (applies [facility] (St respiratory performe to non-numeric [facility] specimen d. results) Medical, ) Specific gravity Test not Normal (applies [facility] (St of Pericardial performe to non-numeric [facility] fluid by d. results) Medical, ) Refractometry Protein Test not Normal (applies [facility] (St [Mass/volume] in performe to non-numeric [facility] Lower d. results) Medical, ) respiratory specimen Glucose Test not Normal (applies [facility] (St [Mass/volume] in performe to non-numeric [facility] Urine collected d. results) Medical, ) for unspecified duration Ketones Test not Normal (applies [facility] (St [Presence] in performe to non-numeric [facility] Blood by Tablet d. results) [facility], ) ID Date Data Source [id number] 07/27/2017 12:00:00 AM EST [facility] ([facility]) Name Value Range Interpretation Description Data Sup porting Code Source(s) Document(s ) Glucose, Serum 92 mg/dL Normal (applies [facility] (S t to non-numeric [facility] results) Medical, ) Urea nitrogen 21 mg/dL Normal (applies [facility] (St [Mass/volume] in to non-numeric [facility] Serum or Plasma results) Medical, ) Creatinine, Serum 0.95 Normal (applies [facility] (St mg/dL to non-numeric [facility] results) Medical, ) eGFR If NonAfricn 75 Normal (applies [facility] (St Am mL/min/1 to non-numeric [facility] .73 results) Medical, ) eGFR If Africn Am 87 Normal (applies [facility] (St mL/min/1 to non-numeric [facility] .73 results) Medical, ) BUN/Creatinine 22 Normal (applies [facility] (S t Ratio to non-numeric [facility] results) Medical, ) Sodium 141 Normal (applies [facility] (St [Moles/volume] in mmol/L to non-numeric [facility] Serum or Plasma results) Medical, ) Potassium, Serum 4.8 Normal (applies [facility] (St mmol/L to non-numeric [facility] results) Medical, ) Chloride 103 Normal (applies [facility] (St [Moles/volume] in mmol/L to non-numeric [facility] Serum or Plasma results) Medical, ) Calcium, Serum 9.4 Normal (applies [facility] (S t mg/dL to non-numeric [facility] results) Medical, ) Carbon dioxide, 19 Normal (applies [facility] ( St total mmol/L to non-numeric [facility] [Moles/volume] in results) Medical, Serum or Plasma PC) Protein 7.1 g/dL Normal (applies [facility] (St [Mass/volume] in to non-numeric [facility] Serum or Plasma results) Medical, ) Albumin, Serum 4.7 g/dL Normal (applies [facility] (S t to non-numeric [facility] results) Medical, ) Globulin, Total 2.4 g/dL Normal (applies [facility] ( St to non-numeric [facility] results) Medical, ) A/G Ratio 2.0 Normal (applies [facility] (St to non-numeric [facility] results) Medical, ) Bilirubin.total 1.3 Above high [facility] (St [Mass/volume] in mg/dL normal [facility] Serum or Plasma Medical, ) Alkaline 70 IU/L Normal (applies [facility] (St Phosphatase, S to non-numeric [facility] results) Medical, ) Aspartate 25 IU/L Normal (applies [facility] (St aminotransferase to non-numeric [facility] [Enzymatic results) Medical, activity/volume] in ) Serum or Plasma Alanine 26 IU/L Normal (applies [facility] (St aminotransferase to non-numeric [facility] [Enzymatic results) Medical, activity/volume] in ) Serum or Plasma ID Date Data Source [id number] 07/27/2017 12:00:00 AM EST [facility] ([facility], ) Name Value Range Interpretation Description Data Sup porting Code Source(s) Document(s ) Leukocytes 6.3 Normal (applies [facility] (St [#/volume] in x10E3/uL to non-numeric [facility] Blood by results) Medical, ) Automated count Hemoglobin 17.7 Normal (applies [facility] (St [Mass/volume] in g/dL to non-numeric [facility] Blood results) Medical, ) Erythrocytes 6.11 Above high normal [facility] (S t [#/volume] in x10E6/uL [facility] Blood by Medical, ) Automated count Hematocrit 51.9 % Above high normal [facility] (St [Volume [facility] Fraction] of [facility], ) Blood by Automated count MCH 29.0 pg Normal (applies [facility] (St to non-numeric [facility] results) Medical, ) MCV 85 fL Normal (applies [facility] (St to non-numeric [facility] results) Medical, ) MCHC 34.1 Normal (applies [facility] (St g/dL to non-numeric [facility] results) Medical, ) RDW 14.3 % Normal (applies [facility] (St to non-numeric [facility] results) Medical, ) Platelets 224 Normal (applies [facility] (St [#/area] in x10E3/uL to non-numeric [facility] Blood by results) Medical, ) Microscopy high power field Neutrophils [#] 54 % Normal (applies [facility] ( St in Body fluid by to non-numeric [facility] Manual count results) Medical, ) Lymphs 36 % Normal (applies [facility] (St to non-numeric [facility] results) Medical, ) Monocytes 7 % Normal (applies [facility] (St [#/volume] in to non-numeric [facility] Cord blood results) Medical, ) Eos 2 % Normal (applies [facility] (St to non-numeric [facility] results) Medical, ) Basos 1 % Normal (applies [facility] (St to non-numeric [facility] results) Medical, ) Neutrophils 3.5 Normal (applies [facility] (St (Absolute) x10E3/uL to non-numeric [facility] results) Medical, ) Lymphs 2.3 Normal (applies [facility] (St (Absolute) x10E3/uL to non-numeric [facility] results) Medical, ) Monocytes(Absolu 0.5 Normal (applies [facility] (St te) x10E3/uL to non-numeric [facility] results) Medical, ) Eos (Absolute) 0.1 Normal (applies [facility] (S t x10E3/uL to non-numeric [facility] results) Medical, ) Baso (Absolute) 0.0 Normal (applies [facility] ( St x10E3/uL to non-numeric [facility] results) Medical, ) Immature 0 % Normal (applies [facility] (St Granulocytes to non-numeric [facility] results) Medical, ) Immature Grans 0.0 Normal (applies [facility] (S t (Abs) x10E3/uL to non-numeric [facility] results) Medical, ) ID Date Data Source [id number] 07/27/2017 12:00:00 AM EST [facility] ([facility], ) Name Value Range Interpretation Description Data Sup porting Code Source(s) Document(s ) No Urine Test not Normal (applies to [facility] (St Received performed non-numeric [facility] . results) Medical, ) ID Date Data Source [id number] 07/27/2017 12:00:00 AM EST [facility] ([facility], ) Name Value Range Interpretation Description Data Sup porting Code Source(s) Document(s ) Prostate 1.4 ng/mL Normal (applies to [facility] (St Specific Ag, non-numeric [facility] Serum results) [facility], ) ID Date Data Source [id number] 07/27/2017 12:00:00 AM EST [facility] ([facility], ) Name Value Range Interpretation Description Data Sup porting Code Source(s) Document(s ) Vitamin B12 296 pg/mL Normal (applies to [facility] (S t non-numeric [facility] results) Medical, ) Folate 8.5 ng/mL Normal (applies to [facility] (St (Folic non-numeric [facility] Acid), Serum results) [facility], ) ID Date Data Source [id number] 07/27/2017 12:00:00 AM EST [facility] ([facility]) Name Value Range Interpretation Description Data Sup porting Code Source(s) Document(s ) Bilirubin.c 0.28 mg/dL Normal (applies to [facility] ( St onjugated non-numeric [facility] [Mass/volum results) [facility], ) e] in Serum or Plasma ID Date Data Source [id number] 07/27/2017 12:00:00 AM EST [facility] ([facility]) Name Value Range Interpretation Description Data Sup porting Code Source(s) Document(s ) Cholesterol 152 Normal (applies [facility] (St [Mass/volume] in mg/dL to non-numeric [facility] Serum or Plasma results) [facility], ) Triglyceride 131 Normal (applies [facility] (St [Mass/volume] in mg/dL to non-numeric [facility] Serum or Plasma results) [facility], ) VLDL Cholesterol 26 mg/dL Normal (applies [facility] (St Heriberto to non-numeric [facility]'s results) [facility]) HDL Cholesterol 47 mg/dL Normal (applies [facility] ( St to non-numeric [facility]'s results) [facility], ) LDL Cholesterol 79 mg/dL Normal (applies [facility] ( St Calc to non-numeric [facility] results) [facility], ) ID Date Data Source [id number] 07/27/2017 12:00:00 AM EST [facility] ([facility], ) Name Value Range Interpretation Description Data Sup porting Code Source(s) Document(s ) Specific gravity Test not Normal (applies [facility] (St of Pericardial performe to non-numeric [facility] fluid by d. results) Medical, ) Refractometry Protein Test not Normal (applies [facility] (St [Mass/volume] in performe to non-numeric [facility] Lower d. results) Medical, ) respiratory specimen pH of Lower Test not Normal (applies [facility] (St respiratory performe to non-numeric [facility] specimen d. results) [facility], ) Glucose Test not Normal (applies [facility] (St [Mass/volume] in performe to non-numeric [facility] Urine collected d. results) Medical, ) for unspecified duration Ketones Test not Normal (applies [facility] (St [Presence] in performe to non-numeric [facility] Blood by Tablet d. results) Medical, ) ID Date Data Source [id number] 07/27/2017 12:00:00 AM EST [facility] ([facility] Name Value Range Interpretation Description Data Sup porting Code Source(s) Document(s ) Glucose, Serum 92 mg/dL Normal (applies [facility] (S t to non-numeric [facility] results) [facility], [facility]) Urea nitrogen 21 mg/dL Normal (applies [facility] (St [Mass/volume] in to non-numeric [facility] Serum or Plasma results) [facility], [facility]) Creatinine, Serum 0.95 Normal (applies [facility] (St mg/dL to non-numeric [facility] results) [facility], [facility]) eGFR If NonAfricn 75 Normal (applies [facility] (St Am mL/min/1 to non-numeric [facility] .73 results) [facility], [facility]) eGFR If Africn Am 87 Normal (applies [facility] (St mL/min/1 to non-numeric [facility] .73 results) [facility], [facility]) BUN/Creatinine 22 Normal (applies [facility] (S t Ratio to non-numeric [facility] results) [facility], [facility]) Sodium 141 Normal (applies [facility] (St [Moles/volume] in mmol/L to non-numeric [facility] Serum or Plasma results) [facility], [facility]) Potassium, Serum 4.8 Normal (applies [facility] (St mmol/L to non-numeric [facility] results) [facility], [facility]) Chloride 103 Normal (applies [facility] (St [Moles/volume] in mmol/L to non-numeric [facility] Serum or Plasma results) [facility], [facility]) Calcium, Serum 9.4 Normal (applies [facility] (S t mg/dL to non-numeric [facility] results) [facility], [facility]) Carbon dioxide, 19 Normal (applies [facility] ( St total mmol/L to non-numeric [facility] [Moles/volume] in results) Medical, Serum or Plasma PC) Protein 7.1 g/dL Normal (applies [facility] (St [Mass/volume] in to non-numeric [facility] Serum or Plasma results) [facility], [facility]) Albumin, Serum 4.7 g/dL Normal (applies [facility] (S t to non-numeric [facility] results) [facility], ) Globulin, Total 2.4 g/dL Normal (applies [facility] ( St to non-numeric [facility]'s results) [facility], ) Bilirubin.total 1.3 Above high [facility] (St [Mass/volume] in mg/dL normal [facility] Serum or Plasma [facility], ) A/G Ratio 2.0 Normal (applies [facility] (St to non-numeric [facility]'s results) [facility], ) Alkaline 70 IU/L Normal (applies [facility] (St Phosphatase, S to non-numeric [facility] results) [facility], ) Aspartate 25 IU/L Normal (applies [facility] (St aminotransferase to non-numeric [facility] [Enzymatic results) Medical, activity/volume] in ) Serum or Plasma Alanine 26 IU/L Normal (applies [facility] (St aminotransferase to non-numeric [facility] [Enzymatic results) Medical, activity/volume] in ) Serum or Plasma ID Date Data Source [id number] 07/27/2017 12:00:00 AM EST [facility] ([facility], ) Name Value Range Interpretation Description Data Sup porting Code Source(s) Document(s ) Leukocytes 6.3 Normal (applies [facility] (St [#/volume] in x10E3/uL to non-numeric [facility] Blood by results) [facility], ) Automated count Erythrocytes 6.11 Above high normal [facility] (S t [#/volume] in x10E6/uL [facility] Blood by Medical, ) Automated count Hemoglobin 17.7 Normal (applies [facility] (St [Mass/volume] in g/dL to non-numeric [facility] Blood results) [facility], ) MCV 85 fL Normal (applies MEDGEN (St to non-numeric [facility] results) [facility], ) Hematocrit 51.9 % Above high normal MEDGEN (St [Volume Giuliano's Fraction] of [facility], ) Blood by Automated count MCH 29.0 pg Normal (applies MEDGEN (St to non-numeric [facility]'s results) [facility], ) MCHC 34.1 Normal (applies MEDGEN (St g/dL to non-numeric [facility]'s results) [facility], ) RDW 14.3 % Normal (applies MEDGEN (St to non-numeric Giuliano's results) [facility], ) Platelets 224 Normal (applies MEDGEN (St [#/area] in x10E3/uL to non-numeric [facility] Blood by results) [facility], ) Microscopy high power field Neutrophils [#] 54 % Normal (applies MEDGEN ( St in Body fluid by to non-numeric [facility] Manual count results) [facility], ) Monocytes 7 % Normal (applies MEDGEN (St [#/volume] in to non-numeric [facility] Cord blood results) [facility], ) Lymphs 36 % Normal (applies MEDGEN (St to non-numeric Guiliano's results) [facility], ) Eos 2 % Normal (applies MEDGEN (St to non-numeric Giuliano's results) [facility], ) Neutrophils 3.5 Normal (applies MEDGEN (St (Absolute) x10E3/uL to non-numeric [facility]'s results) [facility]) Basos 1 % Normal (applies MEDGEN (St to non-numeric [facility]iano's results) [facility]) Lymphs 2.3 Normal (applies MEDGEN (St (Absolute) x10E3/uL to non-numeric [facility]'s results) [facility], ) Eos (Absolute) 0.1 Normal (applies MEDGEN (S t x10E3/uL to non-numeric [facility]'s results) [facility], ) Monocytes(Absolu 0.5 Normal (applies MEDGEN (St te) x10E3/uL to non-numeric [facility]'s results) [facility], ) Baso (Absolute) 0.0 Normal (applies MEDGEN ( St x10E3/uL to non-numeric [facility] results) [facility], ) Immature 0 % Normal (applies MEDGEN (St Granulocytes to non-numeric [facility]'s results) [facility], ) Immature Grans 0.0 Normal (applies MEDGEN (S t (Abs) x10E3/uL to non-numeric [facility] results) [facility], ) ID Date Data Source [id number] 01/05/2017 12:00:00 AM EDT MED[facility] ([facility], ) Name Value Range Interpretation Description Data Sup porting Code Source(s) Document(s ) Protein 6.9 g/dL Normal (applies MEDGEN (St [Mass/volume] in to non-numeric [facility] Serum or Plasma results) [facility], ) Albumin, Serum 4.6 g/dL Normal (applies MEDGEN (S t to non-numeric [facility] results) [facility], ) Bilirubin.total 1.3 Above high MEDGEN (St [Mass/volume] in mg/dL normal [facility] Serum or Plasma [facility], ) Bilirubin.conjugate 0.29 Normal (applies MEDG EN (St d [Mass/volume] in mg/dL to non-numeric [facility] Serum or Plasma results) [facility], ) Alkaline 66 IU/L Normal (applies MEDGEN (St Phosphatase, S to non-numeric [facility] results) [facility], ) Aspartate 24 IU/L Normal (applies MEDGEN (St aminotransferase to non-numeric [facility]'s [Enzymatic results) Medical, activity/volume] in ) Serum or Plasma Alanine 22 IU/L Normal (applies MEDGEN (St aminotransferase to non-numeric [facility] [Enzymatic results) Medical, activity/volume] in ) Serum or Plasma ID Date Data Source [id number] 01/05/2017 12:00:00 AM EDT [facility] ([facility], ) Name Value Range Interpretation Description Data Sup porting Code Source(s) Document(s ) Cholesterol 163 Normal (applies MEDGEN (St [Mass/volume] in mg/dL to non-numeric [facility] Serum or Plasma results) [facility], ) Triglyceride 143 Normal (applies MEDGEN (St [Mass/volume] in mg/dL to non-numeric [facility] Serum or Plasma results) [facility], ) HDL Cholesterol 51 mg/dL Normal (applies MEDGEN ( St to non-numeric [facility]'s results) [facility], ) VLDL Cholesterol 29 mg/dL Normal (applies MEDGEN (St Heriberto to non-numeric [facility] results) [facility], ) LDL Cholesterol 83 mg/dL Normal (applies MEDGEN ( St Calc to non-numeric [facility]'s results) [facility], ) ID Date Data Source [id number] 01/05/2017 12:00:00 AM EDT [facility] ([facility], ) Name Value Range Interpretation Description Data Sup porting Code Source(s) Document(s ) Protein 6.9 g/dL Normal (applies MEDGEN (St [Mass/volume] in to non-numeric [facility] Serum or Plasma results) [facility], ) Albumin, Serum 4.6 g/dL Normal (applies MEDGEN (S t to non-numeric [facility] results) [facility], ) Bilirubin.total 1.3 Above high MEDGEN (St [Mass/volume] in mg/dL normal [facility] Serum or Plasma [facility], ) Bilirubin.conjugate 0.29 Normal (applies MEDG EN (St d [Mass/volume] in mg/dL to non-numeric [facility] Serum or Plasma results) [facility], ) Alkaline 66 IU/L Normal (applies MEDGEN (St Phosphatase, S to non-numeric [facility] results) [facility], ) Aspartate 24 IU/L Normal (applies MEDGEN (St aminotransferase to non-numeric [facility]'s [Enzymatic results) Medical, activity/volume] in ) Serum or Plasma Alanine 22 IU/L Normal (applies MEDGEN (St aminotransferase to non-numeric [facility]'s [Enzymatic results) Medical, activity/volume] in ) Serum or Plasma ID Date Data Source [id number] 01/05/2017 12:00:00 AM EDT MED[facility] ([facility], ) Name Value Range Interpretation Description Data Sup porting Code Source(s) Document(s ) Triglyceride 143 Normal (applies MEDGEN (St [Mass/volume] in mg/dL to non-numeric [facility] Serum or Plasma results) Medical, ) Cholesterol 163 Normal (applies MEDGEN (St [Mass/volume] in mg/dL to non-numeric [facility] Serum or Plasma results) Medical, ) HDL Cholesterol 51 mg/dL Normal (applies MEDGEN ( St to non-numeric [facility]iano's results) [facility], ) VLDL Cholesterol 29 mg/dL Normal (applies MEDGEN (St Heriberto to non-numeric [facility] results) [facility], ) LDL Cholesterol 83 mg/dL Normal (applies MEDGEN ( St Calc to non-numeric Giuliano's results) [facility], ) Procedure Social History Code Duration Value Status Description Data Source(s ) Smoking 06/11/2020 no smoking completed no smoking MEDGEN (St 12:00:00 AM EDT drinking: drinking: [facility] Me dical, occasionally occasionally PC) Smoking 06/11/2020 Unknown if ever completed Unknown if ever MEDG EN (St 12:00:00 AM EDT smoked smoked Anjelica Corona dical, PC) Smoking 04/10/2020 no smoking completed no smoking MEDGEN (St 12:00:00 AM EDT drinking: drinking: [facility] Me dical, occasionally occasionally PC) Smoking 04/10/2020 Unknown if ever completed Unknown if ever MEDG EN (St 12:00:00 AM EDT smoked smoked Anjelica Ky dicaz, ) Vital Signs ID Date Data Source UNK Name Value Range Interpretation Code Description Data Source(s) Body mass index 28.6 kg/m2 28.6 kg/m2 MEDGEN (S t (BMI) [Ratio] [facility] [place], ) Diastolic blood 72 mm[Hg] 72 mm[Hg] MEDGEN (S t [facility]) Systolic blood 140 mm[Hg] 140 mm[Hg] MED[facility] ([facility]) Body weight 177 lb 177 lb [facility] ([facility] [place]) Body height 66 in 66 in [facility] ([facility] [place]) Heart rate 87 /min 87 /min [facility] ([facility] [place]) Inhaled oxygen 94 % 94 % MEDGEN ([facility], ) Body mass index 28.6 kg/m2 28.6 kg/m2 MEDGEN (S t (BMI) [Ratio] [facility] [place], ) Diastolic blood 88 mm[Hg] 88 mm[Hg] MEDGEN (S t [facility]) Systolic blood 140 mm[Hg] 140 mm[Hg] MEDGEN ([facility]) Body weight 177 lb 177 lb MED[facility] ([facility] [place]) Body height 66 in 66 in [facility] ([facility] [place]) Heart rate 87 /min 87 /min [facility] ([facility] [place]) Inhaled oxygen 94 % 94 % MEDGEN ([facility], ) Body mass index 28.6 kg/m2 28.6 kg/m2 MEDGEN (S t (BMI) [Ratio] [facility] [place], ) Diastolic blood 88 mm[Hg] 88 mm[Hg] MEDGEN (S t [facility]) Systolic blood 140 mm[Hg] 140 mm[Hg] MEDGEN ([facility]) Body weight 177 lb 177 lb MED[facility] ([facility] [place]) Body height 66 in 66 in [facility] ([facility] [place]) Body mass index 29.4 kg/m2 29.4 kg/m2 MEDGEN (S t (BMI) [Ratio] [facility], ) Diastolic blood 68 mm[Hg] 68 mm[Hg] MEDGEN (S t pressure [facility]) Systolic blood 160 mm[Hg] 160 mm[Hg] MEDGEN ([facility]) Body weight 182 lb 182 lb MEDGEN ([facility] [place]) Body height 66 in 66 in [facility] ([facility] [place]) Body mass index 29.4 kg/m2 29.4 kg/m2 MEDGEN (S t (BMI) [Ratio] [facility] [place], ) Diastolic blood 68 mm[Hg] 68 mm[Hg] MEDGEN (S t pressure [facility]) Systolic blood 160 mm[Hg] 160 mm[Hg] MEDGEN ([facility]) Body weight 182 lb 182 lb MEDGEN ([facility] [place]) Body height 66 in in MEDGEN ([facility] [place]) Body mass index 30 kg/m2 30 kg/m2 MEDGEN (S t (BMI) [Ratio] [facility] [place], ) Diastolic blood 76 mm[Hg] 76 mm[Hg] MEDGEN (S t pressure [facility]) Systolic blood 134 mm[Hg] 134 mm[Hg] MEDGEN ([facility]) Body weight 186 lb 186 lb MEDGEN ([facility] [place]) Body height 66 in in [facility]GEN ([facility] [place]) Body mass index 30 kg/m2 30 kg/m2 MEDGEN (S t (BMI) [Ratio] [facility] [place], ) Diastolic blood 76 mm[Hg] 76 mm[Hg] MEDGEN (S t pressure [facility]) Systolic blood 134 mm[Hg] 134 mm[Hg] MEDGEN ([facility]) Body weight 186 lb 186 lb MEDGEN ([facility] [place]) Body height 66 in in MED[facility] ([facility] [place]) Body mass index 29 kg/m2 29 kg/m2 MEDGEN (S t (BMI) [Ratio] [facility] [place], ) Diastolic blood 74 mm[Hg] 74 mm[Hg] MEDGEN (S t pressure [facility]) Systolic blood 140 mm[Hg] 140 mm[Hg] MEDGEN ([facility]) Body weight 180 lb 180 lb MEDGEN ([facility] [place]) Body height 66 in 66 in [facility] ([facility] [place]) Body mass index 29 kg/m2 29 kg/m2 MEDGEN (S t (BMI) [Ratio] [facility] [place], ) Diastolic blood 74 mm[Hg] 74 mm[Hg] MEDGEN (S t pressure [facility]) Systolic blood 140 mm[Hg] 140 mm[Hg] MEDGEN ([facility]) Body weight 180 lb 180 lb MEDGEN ([facility] [place]) Body height 66 in in [facility] ([facility] [place]) Diastolic blood 80 mm[Hg] 80 mm[Hg] MEDGEN ([facility]) Systolic blood 130 mm[Hg] 130 mm[Hg] MEDGEN ([facility]) Body weight 185 lb 185 lb MEDGEN ([facility] [place]) Body height 66 in 66 in [facility] ([facility] [place]) Body mass index 29.9 kg/m2 29.9 kg/m2 [facility] (S t ([facility]) [[facility]] [facility]) Body mass index 29.9 kg/m2 29.9 kg/m2 MEDGEN (S t (BMI) [Ratio] [facility]) Diastolic blood 80 mm[Hg] 80 mm[Hg] MEDGEN ([facility]) Systolic blood 130 mm[Hg] 130 mm[Hg] MEDGEN ([facility]) Body weight 185 lb 185 lb MEDGEN ([facility] [place]) Body height 66 in 66 in MED[facility] ([facility] [place]) Heart rate 83 /min 83 /min MED[facility] ([facility] [place]) Inhaled oxygen 95 % 95 % MEDGEN ([facility]) Body mass index 30.2 kg/m2 30.2 kg/m2 MEDGEN (S t (BMI) [Ratio] [facility] [place], ) Diastolic blood 64 mm[Hg] 64 mm[Hg] MEDGEN (S t pressure [facility]) Systolic blood 144 mm[Hg] 144 mm[Hg] MEDGEN ([facility]) Body weight 187 lb 187 lb MEDGEN ([facility] [place]) Body height 66 in 66 in [facility] ([facility] [place]) Heart rate 83 /min 83 /min MED[facility] ([facility] [place]) Inhaled oxygen 95 % 95 % MEDGEN ([facility], ) Body mass index 30.2 kg/m2 30.2 kg/m2 MEDGEN (S t (BMI) [Ratio] [facility] [place], ) Diastolic blood 64 mm[Hg] 64 mm[Hg] MEDGEN (S t pressure [facility]) Systolic blood 144 mm[Hg] 144 mm[Hg] MEDGEN ([facility]) Body weight 187 lb 187 lb MEDGEN ([facility] [place]) Body height 66 in 66 in [facility] ([facility] [place]) Heart rate 106 /min 106 /min MED[facility] ([facility] [place]) Inhaled oxygen 90 % 90 % MEDGEN ([facility], ) Body mass index 29.4 kg/m2 29.4 kg/m2 MEDGEN (S t (BMI) [Ratio] [facility] [place], ) Diastolic blood 90 mm[Hg] 90 mm[Hg] MEDGEN (S t pressure [facility]) Systolic blood 150 mm[Hg] 150 mm[Hg] MEDGEN ([facility]) Body weight 182 lb 182 lb MED[facility] ([facility] [place]) Body height 66 in 66 in [facility] ([facility] [place]) Heart rate 106 /min 106 /min MED[facility] ([facility] [place]) Inhaled oxygen 90 % 90 % MEDGEN ([facility], ) Body mass index 29.4 kg/m2 29.4 kg/m2 MEDGEN (S t (BMI) [Ratio] [facility] [place], ) Diastolic blood 90 mm[Hg] 90 mm[Hg] MEDGEN (S t pressure [facility]) Systolic blood 150 mm[Hg] 150 mm[Hg] MEDGEN ([facility]) Body weight 182 lb 182 lb MEDGEN ([facility] [place]) Body height 66 in 66 in [facility] ([facility] [place]) Heart rate 85 /min 85 /min [facility] ([facility] [place]) Inhaled oxygen 93 % 93 % MEDGEN ([facility]) Body mass index 30.2 kg/m2 30.2 kg/m2 MEDGEN (S t (BMI) [Ratio] [facility]) Diastolic blood 78 mm[Hg] 78 mm[Hg] MEDGEN (S t [facility]) Systolic blood 120 mm[Hg] 120 mm[Hg] MEDGEN ([facility]) Body weight 187 lb 187 lb MED[facility] ([facility] [place]) Body height 66 in 66 in [facility] ([facility] [place]) Heart rate 85 /min 85 /min [facility] ([facility] [place]) Inhaled oxygen 93 % 93 % MEDGEN ([facility]) Body mass index 30.2 kg/m2 30.2 kg/m2 MEDGEN (S t (BMI) [Ratio] [facility]) Diastolic blood 78 mm[Hg] 78 mm[Hg] MEDGEN ([facility]) Systolic blood 120 mm[Hg] 120 mm[Hg] MED[facility] ([facility]) Body weight 187 lb 187 lb [facility] ([facility] [place]) Body height 66 in 66 in [facility] ([facility] [place]) Body mass index 30.2 kg/m2 30.2 kg/m2 MEDGEN (S t (BMI) [Ratio] [facility]) Diastolic blood 72 mm[Hg] 72 mm[Hg] MED[facility] ([facility]) Systolic blood 142 mm[Hg] 142 mm[Hg] MED[facility] ([facility]) Body weight 187 lb 187 lb [facility] ([facility] [place]) Body height 66 in 66 in [facility] ([facility] [place]) Body mass index 30.2 kg/m2 30.2 kg/m2 MEDGEN (S t (BMI) [Ratio] [facility]) Diastolic blood 72 mm[Hg] 72 mm[Hg] MEDGEN (S pressure [facility]) Systolic blood 142 mm[Hg] 142 mm[Hg] MED[facility] ([facility]) Body weight 187 lb 187 lb [facility] ([facility] [place]) Body height 66 in 66 in [facility] ([facility] [place]) Diastolic blood 72 mm[Hg] 72 mm[Hg] MEDGEN (S t pressure [facility]) Systolic blood 140 mm[Hg] 140 mm[Hg] [facility] ([facility]) Body height 66 in 66 in [facility] ([facility] [place]) Diastolic blood 72 mm[Hg] 72 mm[Hg] MEDGEN (S t pressure [facility]) Systolic blood 140 mm[Hg] 140 mm[Hg] MEDGEN ([facility]) Body height 66 in 66 in [facility] ([facility] [place]) Body mass index 29.7 kg/m2 29.7 kg/m2 MEDGEN (S t (BMI) [Ratio] [facility] [place], ) Diastolic blood 92 mm[Hg] 92 mm[Hg] MEDGEN (S t pressure [facility]) Systolic blood 160 mm[Hg] 160 mm[Hg] [facility] ([facility]) Body weight 184 lb 184 lb [facility] ([facility] [place]) Body height 66 in 66 in [facility] ([facility] [place]) Body mass index 29.7 kg/m2 29.7 kg/m2 MEDGEN (S t (BMI) [Ratio] [facility] [place], ) Diastolic blood 92 mm[Hg] 92 mm[Hg] MEDGEN (S t pressure [facility]) Systolic blood 160 mm[Hg] 160 mm[Hg] MEDGEN ([facility]) Body weight 184 lb 184 lb [facility] ([facility] [place]) Body height 66 in 66 in [facility] ([facility] [place]) Body mass index 29.7 kg/m2 29.7 kg/m2 MEDGEN (S t (BMI) [Ratio] [facility] [place], ) Diastolic blood 100 mm[Hg] 100 mm[Hg] MEDGEN (S t pressure [facility] [place] [facility] ) Systolic blood 160 mm[Hg] 160 mm[Hg] MEDGEN ([facility]) Body weight 184 lb 184 lb MED[facility] ([facility] [place]) Body height 66 in 66 in [facility] ([facility] [place]) Body mass index 29.7 kg/m2 29.7 kg/m2 MEDGEN (S t (BMI) [Ratio] [facility]) Diastolic blood 100 mm[Hg] 100 mm[Hg] MEDGEN (S t pressure [facility]) Systolic blood 160 mm[Hg] 160 mm[Hg] MEDGEN ([facility]) Body weight 184 lb 184 lb [facility] ([facility] [place]) Body height 66 in 66 in [facility] ([facility] [place]) Body mass index 30.2 kg/m2 30.2 kg/m2 MEDGEN (S t (BMI) [Ratio] [facility]) Diastolic blood 84 mm[Hg] 84 mm[Hg] MEDGEN (S t pressure [facility]) Systolic blood 130 mm[Hg] 130 mm[Hg] MEDGEN ([facility]) Body weight 187 lb 187 lb [facility] ([facility] [place]) Body height 66 in 66 in [facility] ([facility] [place]) Body mass index 30.2 kg/m2 30.2 kg/m2 MEDGEN (S t (BMI) [Ratio] [facility]) Diastolic blood 84 mm[Hg] 84 mm[Hg] MEDGEN (S t [facility]) Systolic blood 130 mm[Hg] 130 mm[Hg] MEDGEN ([facility]) Body weight 187 lb 187 lb MEDGEN ([facility] [place]) Body height 66 in 66 in MED[facility] ([facility] [place]) Heart rate 65 /min 65 /min MED[facility] ([facility] [place]) Respiratory rate 16 /min 16 /min MEDGEN ( [facility] [place]) Inhaled oxygen 97 % 97 % MEDGEN ([facility]) Body mass index 29.2 kg/m2 29.2 kg/m2 MEDGEN (S t (BMI) [Ratio] [facility]) Diastolic blood 80 mm[Hg] 80 mm[Hg] MEDGEN (S t pressure [facility]) Systolic blood 144 mm[Hg] 144 mm[Hg] MEDGEN ([facility]) Body weight 181 lb 181 lb MED[facility] ([facility] [place]) Body height 66 in 66 in MED[facility] ([facility] [place]) Heart rate 65 /min 65 /min MED[facility] ([facility] [place] Respiratory rate 16 /min 16 /min MEDGEN ( [facility] [place]) Inhaled oxygen 97 % 97 % MEDGEN ([facility], ) Body mass index 29.2 kg/m2 29.2 kg/m2 MEDGEN (S t (BMI) [Ratio] [facility] [place], ) Diastolic blood 80 mm[Hg] 80 mm[Hg] MEDGEN (S t pressure [facility]) Systolic blood 144 mm[Hg] 144 mm[Hg] MEDGEN ([facility]) Body weight 181 lb 181 lb MED[facility] ([facility] [place]) Body height 66 in 66 in MEDGEN ([facility] [place]) Body mass index 29.2 kg/m2 29.2 kg/m2 MEDGEN (S t (BMI) [Ratio] [facility] [place], ) Diastolic blood 74 mm[Hg] 74 mm[Hg] MEDGEN (S t pressure [facility]) Systolic blood 126 mm[Hg] 126 mm[Hg] MEDGEN ([facility]) Body weight 181 lb 181 lb MED[facility] ([facility] [place]) Body height 66 in 66 in MED[facility] ([facility] [place]) Body mass index 29.2 kg/m2 29.2 kg/m2 MEDGEN (S t (BMI) [Ratio] [facility], ) Diastolic blood 74 mm[Hg] 74 mm[Hg] MEDGEN (S t pressure [facility]) Systolic blood 126 mm[Hg] 126 mm[Hg] MEDGEN ([facility]) Body weight 181 lb 181 lb MED[facility] ([facility] [place]) Body height 66 in 66 in MED[facility] ([facility] [place]) Body mass index 29 kg/m2 29 kg/m2 MEDGEN (S t (BMI) [Ratio] [facility] [place], ) Diastolic blood 80 mm[Hg] 80 mm[Hg] MEDGEN (S t pressure [facility]) Systolic blood 130 mm[Hg] 130 mm[Hg] MEDGEN ([facility]) Body weight 180 lb 180 lb MEDGEN ([facility] [place]) Body height 66 in 66 in [facility] [place] Body mass index 29 kg/m2 29 kg/m2 MEDGEN (S t (BMI) [Ratio] [facility] [place], ) Diastolic blood 80 mm[Hg] 80 mm[Hg] MEDGEN (S t pressure [facility]) Systolic blood 130 mm[Hg] 130 mm[Hg] MEDGEN ([facility]) Body weight 180 lb 180 lb MEDGEN ([facility] [place]) Body height 66 in in [facility] ([facility] [place]) Body mass index 29.7 kg/m2 29.7 kg/m2 MEDGEN (S t (BMI) [Ratio] [facility] [place], ) Diastolic blood 78 mm[Hg] 78 mm[Hg] MEDGEN (S t pressure [facility]) Systolic blood 132 mm[Hg] 132 mm[Hg] MEDGEN ([facility]) Body weight 184 lb 184 lb [facility] ([facility] [place]) Body height 66 in 66 in [facility] ([facility] [place]) Body mass index 29.7 kg/m2 29.7 kg/m2 MEDGEN (S t (BMI) [Ratio] [facility] [place], ) Diastolic blood 78 mm[Hg] 78 mm[Hg] MEDGEN (S t [facility]) Systolic blood 132 mm[Hg] 132 mm[Hg] MEDGEN ([facility]) Body weight 184 lb 184 lb [facility] ([facility] [place]) Body height 66 in 66 in [facility] ([facility] [place]) Body mass index 29.7 kg/m2 29.7 kg/m2 MEDGEN (S t (BMI) [Ratio] [facility] [place], ) Diastolic blood 80 mm[Hg] 80 mm[Hg] MEDGEN (S t pressure [facility]) Systolic blood 130 mm[Hg] 130 mm[Hg] [facility] ([facility]) Body weight 184 lb 184 lb [facility] ([facility] [place]) Body height 66 in 66 in [facility] ([facility] [place] Body mass index 29.7 kg/m2 29.7 kg/m2 [facility] (S t (BMI) [Ratio] [facility]) Diastolic blood 80 mm[Hg] 80 mm[Hg] [facility] (S t pressure [facility]) Systolic blood 130 mm[Hg] 130 mm[Hg] [facility] ([facility]) Body weight 184 lb 184 lb [facility] ([facility] [place]) Body height 66 in 66 in [facility] ([facility] [place]
[2020-07-01 16:42] VITALS: BMI 29.6
--- OUTSIDE RECORDS SUMMARY | 2020-07-02 04:32 | XMS ---
[...] is protected by Article 27-F of the [place] Public Health law. If you continue you may haveaccess to information: Regarding HIV / AIDS; Provided by facilities licensed or operated by the [facility] Office of Mental Health; or Provided by the [facility] Office for People With Developmental Disabilities. If such information is present, then the following [facility] mandated warning applies: This information has been [...] law may result in a fine or [place] health [place] sentence or both. A general authorization for the release of medical or other information is NOT sufficient authorization for further disclosure. Encounters Encounter Providers Location Date Indications Data Source(s ) Attender: Blake 06/26/2020 [facility] ([facility] EDT Office Attender: Blake 06/26/2020 12:00:00 AM EDT [facility] ([facility] Office Attender: Blake 06/26/2020 12:00:00 AM EDT [facility] ([facility]) Office Attender: Blake 06/26/2020 12:00:00 AM EDT [facility] ([facility]) Office Attender: Blake 06/26/2020 12:00:00 AM EDT [facility] ([facility], [...] 12:00:00 AM EDT [facility] ([facility], ) Office Attender: Blake 04/10/2020 12:00:00 AM EDT [facility] ([facility], ) Office Immunizations Vaccine Date Status Description Data Source(s) New in 2011. IIV4 06/26/2020 12:00:00 completed ME TOYIN ([facility], ) Insurance Providers Payer name Policy type Policy ID Covered Covered constitution party's Policy P andrew / Coverage constitution party ID relationship to [facility] ormation type carmona BC PPO [id number] SP [id number] MEDICARE [id number] SP [id number] [place] MEDICARE [id number] 1 [id number] PART B DOWNSTATE [employer] [id number] 1 [id number] PLAN [place] MEDICARE [id number] PART B DOWNSTATE Problems, Conditions, and Diagnoses Code Display Name Description Problem Type Effective Dates Data Source(s) L29.8 Other pruritus OTHER PRURITUS Problem 11/15/2019 [facility] ([facility] 12:00:00 AM [facility], ) L29.8 Other pruritus OTHER PRURITUS Problem 11/15/2019 [facility] ([facility] 12:00:00 AM [facility], ) L29.8 Other pruritus OTHER PRURITUS Problem 11/15/2019 [facility] ([facility] 12:00:00 AM [facility], ) Surgeries/Procedures Procedure Description Date Indications Data Source(s) Documentation of current 06/26/2020 MED GEN ([facility] medications (procedure) 12:00:00 AM EDT [facility], ) Documentation of current 06/26/2020 MED GEN ([facility] medications (procedure) 12:00:00 AM EDT [facility], ) OFFICE OUTPATIENT VISIT 25 06/26/2020 M EDGEN ([facility] 12:00:00 AM [facility], ) THERAPEUTIC 06/26/2020 [facility] ([facility] PROPHYLACTIC/DX INJECTION 12:00:00 AM [facility], ) SUBQ/IM FLU QUAD 36 MOS & ABOVE 06/26/2020 MEDG EN ([facility] 12:00:00 AM [facility], ) COLLECTION VENOUS BLOOD 06/26/2020 [facility] Documentation of current 06/11/2020 MED [facility] ([facility] medications (procedure) 12:00:00 AM EDT [facility], ) OFFICE OUTPATIENT VISIT 25 06/11/2020 [facility]GEN ([facility] 12:00:00 AM [facility], ) ECG ROUTINE ECG W/LEAST 12 06/11/2020 [facility]GEN ([facility] LDS W/I&R 12:00:00 AM EDT [facility], ) COLLECTION VENOUS BLOOD 06/11/2020 MED[facility] EN ([facility]ENIPUN[facility]URE 12:00:00 AM [facility], ) Documentation of current 06/11/2020 MED GEN ([facility] medications (procedure) 12:00:00 AM EDT [facility], ) OFFICE OUTPATIENT VISIT 25 06/11/2020 [facility] ECG ROUTINE ECG W/LEAST 12 06/11/2020 [facility]GEN ([facility]DS W/I&R 12:00:00 AM EDT [facility], ) COLLECTION VENOUS BLOOD 06/11/2020 MEDG EN ([facility] VENIPUNCTURE 12:00:00 AM [facility], ) Documentation of current 04/10/2020 MED GEN ([facility] medications (procedure) 12:00:00 AM EDT [facility], ) OFFICE OUTPATIENT VISIT 15 04/10/2020 [facility]GEN ([facility] Documentation of current 04/10/2020 MED [facility]procedure) [facility] OFF[facility] OUTPATIENT VISIT 15 04/10/2020 [facility] Documentation of current 04/10/2020 MED [facility] ([facility] medications (procedure) 12:00:00 AM EDT [facility], ) OFFICE OUTPATIENT VISIT 15 04/10/2020 [facility]GEN ([facility] Documentation of current 11/15/2019 MED [facility] ([facility] medications (procedure) 12:00:00 AM NENA xavier, JONATHAN) Documentation of current 11/15/2019 MED [facility] ([facility] medications (procedure) 12:00:00 AM [facility] xavier PC) Documentation of current 11/15/2019 MED [facility] ([facility] medications (procedure) 12:00:00 AM NNEA xavier, JONATHAN) Documentation of current 11/15/2019 MED GEN ([facility] medications (procedure) 12:00:00 AM [facility] xaveir, PC) Documentation of current 11/15/2019 MED [facility] ([facility] medications (procedure) 12:00:00 AM NENA xavier, JONATHAN) OFFICE OUTPATIENT VISIT 15 11/15/2019 Daniel DUNCAN ([facility] 12:00:00 AM NENA Brunner, PC) Documentation of current 11/15/2019 MED GEN [...] medications (procedure) 12:00:00 AM NENA xavier, JONATHAN) OFFICE OUTPATIENT VISIT 15 11/15/2019 Daniel DUNCAN ([facility] 12:00:00 AM NENA Brunner PC) Documentation of current 11/15/2019 MED GEN [...] EST edical, ) OFFICE OUTPATIENT VISIT 15 11/15/2019 Daniel PERLA ([facility] 12:00:00 AM [facility], ) Documentation of current 07/26/2019 MED GEN ([facility] medications (procedure) 12:00:00 AM EST edical, ) Influenza virus vaccine, 07/26/2019 MED [facility] ([facility] split virus, when 12:00:00 AM [facility] , ) administered to individuals 3 years of age and older, for intramuscular use (flulaval) Administration of 07/26/2019 [facility] ([facility] influenza virus vaccine 12:00:00 AM EST edical, ) OFFICE OUTPATIENT VISIT 25 07/26/2019 Daniel PERLA ([facility] 12:00:00 AM [facility], ) COLLECTION VENOUS BLOOD 07/26/2019 MEDG EN ([facility] VENIPUNCTURE 12:00:00 AM [facility], ) Documentation of current 07/26/2019 MED GEN ([facility] medications (procedure) 12:00:00 AM EST edical, ) Influenza virus vaccine, 07/26/2019 MED GEN ([facility] split virus, when 12:00:00 AM [facility] , ) administered to individuals 3 years of age and older, for intramuscular use (flulaval) Administration of 07/26/2019 [facility] ([facility] influenza virus vaccine 12:00:00 AM EST edical, ) OFFICE OUTPATIENT VISIT 25 07/26/2019 Daniel PERLA ([facility] MIN[facility]ES 12:00:00 AM [facility] Medical, ) COLLECTION VENOUS BLOOD 07/26/2019 MEDG EN ([facility] VENIPUNCTURE 12:00:00 AM [facility] Medical, ) Documentation of current 07/26/2019 MED GEN ([facility] medications (procedure) 12:00:00 AM EST edical, ) Influenza virus vaccine, 07/26/2019 MED GEN ([facility] split virus, when 12:00:00 AM [facility] , ) administered to individuals 3 years of age and older, for intramuscular use (flulaval) Administration of 07/26/2019 [facility] ([facility] influenza virus vaccine 12:00:00 AM EST edical, ) OFFICE OUTPATIENT VISIT 25 07/26/2019 Daniel DUNCAN ([facility] MIN[facility]ES 12:00:00 AM EST Medical, ) COLLECTION VENOUS BLOOD 07/26/2019 MEDG EN ([facility]ENIPUN[facility]URE 12:00:00 AM [facility], ) Results ID Date Data Source [id number] 06/28/2020 08:20:00 AM EDT [facility] Name Value Range Interpretation Description Data Sup porting Code Source(s) Document(s ) SARS [facility] coronavirus 2 RNA This lab was ordered by [facility] and reported by [facility]. ID Date Data Source [id number] 07/26/2019 12:00:00 AM EST [facility], ) Name Value Range Interpretation Description Data Sup porting Code Source(s) Document(s ) Vitamin D, 14.7 Below low normal MEDGEN (St 25-Hydroxy ng/mL [facility], ) ID Date Data Source [id number] 07/26/2019 12:00:00 AM EST [facility], ) Name Value Range Interpretation Description Data Sup porting Code Source(s) Document(s ) Prostate 1.3 ng/mL Normal (applies to [facility] (St Specific Ag, non-numeric [facility] Serum results) Medical, ) ID Date Data Source [id number] 07/26/2019 12:00:00 AM EST [facility], ) Name Value Range Interpretation Description Data Sup porting Code Source(s) Document(s ) Vitamin B12 281 pg/mL Normal (applies to [facility] (S t non-numeric [facility] results) Medical, ) Folate 15.8 Normal (applies to [facility] (St (Folic ng/mL non-numeric [facility] Acid), Serum results) Medical, ) ID Date Data Source [id number] 07/26/2019 12:00:00 AM EST [facility], ) Name Value Range Interpretation Description Data Sup porting Code Source(s) Document(s ) Bilirubin.c 0.21 mg/dL Normal (applies to [facility] ( St onjugated non-numeric [facility] [Mass/volum results) Medical, ) e] in Serum or Plasma ID Date Data Source [id number] 07/26/2019 12:00:00 AM EST [facility], ) Name Value Range Interpretation Description Data Sup porting Code Source(s) Document(s ) Triglyceride 179 Above high normal [facility] (S t [Mass/volume] in mg/dL [facility] Serum or Plasma Medical, ) Cholesterol 158 Normal (applies [facility] (St [Mass/volume] in mg/dL to non-numeric [facility] Serum or Plasma results) Medical, ) HDL Cholesterol 39 mg/dL Below low normal [facility] ([facility], ) LDL Cholesterol 83 mg/dL Normal (applies [facility] ( St Calc to non-numeric [facility] results) Medical, ) VLDL Cholesterol 36 mg/dL Normal (applies [facility] (St Lito to non-numeric [facility] results) Medical, ) ID Date Data Source [id number] 07/26/2019 12:00:00 AM EST [facility] ( [facility], ) Name Value Range Interpretation Description Data Sup porting Code Source(s) Document(s ) Glucose 104 Above high [facility] (St [Mass/volume] in mg/dL normal [facility] Urine collected for Medical, unspecified PC) duration Creatinine 1.22 Normal (applies [facility] (St [Interpretation] in mg/dL to non-numeric [facility] Urine results) Medical, ) Urea nitrogen 22 mg/dL Normal (applies [facility] (St [Mass/volume] in to non-numeric [facility] Serum or Plasma results) Medical, ) eGFR If NonAfricn 55 Below low [...] Serum or Plasma results) Medical, PC) Potassium 4.8 Normal (applies [facility] (St [Mass/volume] in mmol/L to non-numeric [facility] Blood results) Medical, ) Carbon dioxide, 23 Normal (applies [facility] ( St total mmol/L to non-numeric [facility] [Moles/volume] in results) Medical, Serum or Plasma PC) Chloride 102 Normal (applies [facility] (St [Moles/volume] in mmol/L to non-numeric [facility] Serum or Plasma results) Medical, ) Calcium 10.0 Normal (applies [facility] (St [Moles/volume] in mg/dL to non-numeric [facility] Urine collected for results) Medical, unspecified PC) duration Protein 7.3 g/dL Normal (applies [facility] (St [Mass/volume] in to non-numeric [facility] Serum or Plasma results) Medical, ) Microalbumin 4.6 g/dL Normal (applies [facility] (St [Mass/time] in to non-numeric [facility] Urine collected for results) Medical, unspecified PC) duration Globulin, Total 2.7 g/dL Normal (applies [facility] ( St to non-numeric [facility] results) Medical, ) A/G Ratio 1.7 Normal (applies [facility] (St to non-numeric [facility] results) Medical, ) Alkaline 66 IU/L Normal (applies [facility] (St phosphatase to non-numeric [facility] [Enzymatic results) Medical, activity/volume] in PC) Serum, Plasma or Blood Bilirubin.total 1.0 Normal (applies [facility] ( St [Mass/volume] in mg/dL to non-numeric [facility] Serum or Plasma results) Medical, ) Aspartate 19 IU/L Normal (applies MED[facility] (St aminotransferase to non-numeric [facility] [Enzymatic results) Medical, activity/volume] in PC) Serum or Plasma Alanine 18 IU/L Normal (applies [facility] (St aminotransferase to non-numeric [facility] [Enzymatic results) Medical, activity/volume] in PC) Serum or Plasma ID Date Data Source [id number] 07/26/2019 12:00:00 AM EST [facility], ) Name Value Range Interpretation Description Data Sup porting Code Source(s) Document(s ) Leukocytes 7.0 Normal (applies [facility] (St [#/volume] in x10E3/uL to non-numeric [facility] Blood by results) Medical, ) Automated count Hemoglobin 15.8 Normal (applies [facility] (St [Mass/volume] in g/dL to non-numeric [facility] Blood results) Medical, ) Erythrocytes 5.50 Normal (applies [facility] (St [#/volume] in x10E6/uL to non-numeric [facility] Blood by results) [facility], ) Automated count MCV 83 fL Normal (applies [facility] (St to non-numeric [facility] results) [facility], ) Hematocrit 45.6 % Normal (applies [facility] (St [Volume to non-numeric [facility] Fraction] of results) [facility], ) Blood by Automated count MCH 28.7 pg Normal (applies [facility] (St to non-numeric [facility] results) [facility], ) MCHC 34.6 Normal (applies [facility] (St g/dL to non-numeric [facility] results) [facility], ) RDW 14.2 % Normal (applies [facility] (St to non-numeric [facility] results) [facility], ) Platelets 241 Normal (applies [facility] (St [#/area] in x10E3/uL to non-numeric [facility] Blood by results) [facility], ) Microscopy high power field Neutrophils [#] 49 % Normal (applies MED[facility] ( St in Body fluid by to non-numeric [facility] Manual count results) [facility], ) Lymphs 38 % Normal (applies [facility] (St to non-numeric [facility] results) [facility], ) Monocytes 9 % Normal (applies [facility] (St [#/volume] in to non-numeric [facility] Cord blood results) [facility], ) Eos 3 % Normal (applies [facility] (St to non-numeric [facility] results) [facility], ) Basos 1 % Normal (applies [facility] (St to non-numeric [facility] results) [facility], ) Neutrophils 3.5 Normal (applies [facility] (St (Absolute) x10E3/uL to non-numeric [facility] results) [facility], ) Lymphs 2.6 Normal (applies [facility] (St (Absolute) x10E3/uL to non-numeric [facility] results) Medical, ) Eos (Absolute) 0.2 Normal (applies [facility] (S t x10E3/uL to non-numeric [facility] results) [facility], ) Monocytes(Absolu 0.6 Normal (applies [facility] (St [...] results) Medical, ) ID Date Data Source [id number] 07/26/2019 12:00:00 AM EST [facility] ([facility], ) Name Value Range Interpretation Description Data Sup porting Code Source(s) Document(s ) Vitamin D, 14.7 Below low normal [facility] (St 25-Hydroxy ng/mL [facility], ) ID Date Data Source [id number] 07/26/2019 12:00:00 AM EST [facility] ([facility], ) Name Value Range Interpretation Description Data Sup porting Code Source(s) Document(s ) Prostate 1.3 ng/mL Normal (applies to MED[facility] (St Specific Ag, non-numeric [facility] Serum results) Medical, ) ID Date Data Source [id number] 07/26/2019 12:00:00 AM EST [facility] ([facility], ) Name Value Range Interpretation Description Data Sup porting Code Source(s) Document(s ) Vitamin B12 281 pg/mL Normal (applies to MEDGEN (S t non-numeric [facility] results) Medical, ) Folate 15.8 Normal (applies to MEDGEN (St (Folic ng/mL non-numeric [facility] Acid), Serum results) Medical, ) ID Date Data Source [id number] 07/26/2019 12:00:00 AM EST [facility] ([facility], ) Name Value Range Interpretation Description Data Sup porting Code Source(s) Document(s ) Bilirubin.c 0.21 mg/dL Normal (applies to MEDGEN ( St onjugated non-numeric [facility] [Mass/volum results) Medical, ) e] in Serum or Plasma ID Date Data Source [id number] 07/26/2019 12:00:00 AM EST [facility], ) Name Value Range Interpretation Description Data Sup porting Code Source(s) Document(s ) Cholesterol 158 Normal (applies [facility] (St [Mass/volume] in mg/dL to non-numeric [facility] Serum or Plasma results) Medical, ) Triglyceride 179 Above high normal MED[facility] (S t [Mass/volume] in mg/dL [facility] Serum or Plasma Medical, ) HDL Cholesterol 39 mg/dL Below low normal [facility] ([facility], ) VLDL Cholesterol 36 mg/dL Normal (applies MED[facility] (St Lito to non-numeric [facility] results) Medical, PC) LDL Cholesterol 83 mg/dL Normal (applies [facility] ( St Calc to non-numeric [facility] results) Medical, ) ID Date Data Source [id number] 07/26/2019 12:00:00 AM EST [facility] ([facility], ) Name Value Range Interpretation Description Data Sup porting Code Source(s) Document(s ) Glucose 104 Above high [facility] (St [Mass/volume] in mg/dL normal [facility] Urine collected for Medical, unspecified PC) duration Urea nitrogen 22 mg/dL Normal (applies [facility] (St [Mass/volume] in to non-numeric [facility] Serum or Plasma results) Medical, ) Creatinine 1.22 Normal (applies [facility] (St [Interpretation] in mg/dL to non-numeric [facility] Urine results) Medical, ) eGFR If Africn Am 63 Normal (applies [facility] (St mL/min/1 to non-numeric [facility] .73 results) Medical, ) eGFR If NonAfricn 55 Below low normal MEDGE N (St Am mL/min/1 [facility] .73 Medical, ) BUN/Creatinine 18 Normal (applies [facility] (S t Ratio to non-numeric [facility] results) Medical, ) Potassium 4.8 Normal (applies [facility] (St [Mass/volume] [...] Serum or Plasma results) Medical, ) Microalbumin 4.6 g/dL Normal (applies [facility] (St [Mass/time] in to non-numeric [facility] Urine collected for results) Medical, unspecified PC) duration A/G Ratio 1.7 Normal (applies [facility] (St to non-numeric [facility] results) Medical, ) Globulin, Total 2.7 g/dL Normal (applies [facility] ( St to non-numeric [facility] results) Medical, ) Bilirubin.total 1.0 Normal (applies [facility] ( St [Mass/volume] in mg/dL to non-numeric [facility] Serum or Plasma results) Medical, ) Alkaline 66 IU/L Normal (applies [facility] (St phosphatase to non-numeric [facility] [Enzymatic results) Medical, activity/volume] in PC) Serum, Plasma or Blood Aspartate 19 IU/L Normal (applies [facility] (St aminotransferase to non-numeric [facility] [Enzymatic results) Medical, activity/volume] in PC) Serum or Plasma Alanine 18 IU/L Normal (applies [facility] (St aminotransferase to non-numeric [facility] [Enzymatic results) Medical, activity/volume] in PC) Serum or Plasma ID Date Data Source [id number] 07/26/2019 12:00:00 AM EST [facility] ([facility] [...] Medical, ) Blood by Automated count MCV 83 fL Normal (applies [facility] (St to non-numeric [facility] results) [facility], ) MCHC 34.6 Normal (applies [facility] (St g/dL to non-numeric [facility] results) [facility], ) MCH 28.7 pg Normal (applies [facility] (St to non-numeric [facility] results) [facility], ) RDW 14.2 % Normal (applies [facility] (St to non-numeric [facility] results) [facility], ) Platelets 241 Normal (applies MEDGEN (St [#/area] in x10E3/uL to non-numeric [facility] Blood by results) [facility], ) Microscopy high power field Neutrophils [#] 49 % Normal (applies MEDGEN ( St in Body fluid by to non-numeric [facility] Manual count results) [facility], ) Monocytes 9 % Normal (applies MEDGEN (St [#/volume] in to non-numeric [facility] Cord blood results) [facility], ) Lymphs 38 % Normal (applies [facility] (St to non-numeric [facility] results) [facility], ) Eos 3 % Normal (applies [facility] (St to non-numeric [facility] results) [facility], ) Neutrophils 3.5 Normal (applies MED[facility] (St (Absolute) x10E3/uL to non-numeric [facility] results) [facility], ) Basos 1 % Normal (applies [facility] (St to non-numeric [facility] results) [facility], ) Lymphs 2.6 Normal (applies [facility] (St (Absolute) x10E3/uL to non-numeric [facility] results) [facility], ) Monocytes(Absolu 0.6 Normal (applies MEDGEN (St te) x10E3/uL to non-numeric [facility] results) [facility], ) Eos (Absolute) 0.2 Normal (applies MEDGEN (S t x10E3/uL to non-numeric [facility] results) [facility], ) Baso (Absolute) 0.1 Normal (applies MED[facility] ( St x10E3/uL to non-numeric [facility] results) [facility], ) Immature Grans 0.0 Normal (applies MED[facility] (S t (Abs) x10E3/uL to non-numeric [facility] results) [facility], ) Immature 0 % Normal (applies [facility] (St Granulocytes to non-numeric [facility] results) [facility], ) ID Date Data Source [id number] 07/26/2019 12:00:00 AM EST [facility] ([facility], ) Name Value Range Interpretation Description Data Sup porting Code Source(s) Document(s ) Vitamin D, 14.7 Below low normal [facility] (St 25-Hydroxy ng/mL [facility], ) ID Date Data Source [id number] 07/26/2019 12:00:00 AM EST [facility] ([facility], ) Name Value Range Interpretation Description Data Sup porting Code Source(s) Document(s ) Prostate 1.3 ng/mL Normal (applies to MED[facility] (St Specific Ag, non-numeric [facility] Serum results) [facility], ) ID Date Data Source [id number] 07/26/2019 12:00:00 AM EST [facility] ([facility], ) Name Value Range Interpretation Description Data Sup porting Code Source(s) Document(s ) Vitamin B12 281 pg/mL Normal (applies to MED[facility] (S t non-numeric [facility] results) [facility], ) Folate 15.8 Normal (applies to [facility] (St (Folic ng/mL non-numeric [facility] Acid), Serum results) [facility], ) ID Date Data Source [id number] 07/26/2019 12:00:00 AM EST [facility] ([facility], ) Name Value Range Interpretation Description Data Sup porting Code Source(s) Document(s ) Bilirubin.c 0.21 mg/dL Normal (applies to MEDGEN ( St onjugated non-numeric [facility] [Mass/volum results) [facility], ) e] in Serum or Plasma ID Date Data Source [id number] 07/26/2019 12:00:00 AM EST [facility] ([facility], ) Name Value Range Interpretation Description Data Sup porting Code Source(s) Document(s ) Cholesterol 158 Normal (applies [facility] (St [Mass/volume] in mg/dL to non-numeric [facility] Serum or Plasma results) [facility], ) Triglyceride 179 Above high normal MEDGEN (S t [Mass/volume] in mg/dL [facility] Serum or Plasma [facility], ) HDL Cholesterol 39 mg/dL Below low normal [facility] ([facility], ) LDL Cholesterol 83 mg/dL Normal (applies [facility] ( St Calc to non-numeric [facility] results) Medical, PC) VLDL Cholesterol 36 mg/dL Normal (applies [facility] (St Lito to non-numeric [facility] results) Medical, PC) ID Date Data Source [id number] 07/26/2019 12:00:00 AM EST [facility]) Name Value Range Interpretation Description Data Sup porting Code Source(s) Document(s ) Urea nitrogen 22 mg/dL Normal (applies [facility] (St [Mass/volume] in to non-numeric [facility] Serum or Plasma results) Medical, PC) Glucose 104 Above high [facility] (St [Mass/volume] in mg/dL normal [facility] Urine collected for Medical, unspecified PC) duration Creatinine 1.22 Normal (applies [facility] (St [Interpretation] in mg/dL to non-numeric [facility] Urine results) Medical, PC) eGFR If NonAfricn 55 [...] non-numeric [facility] results) Medical, ) A/G Ratio 1.7 Normal (applies [facility] (St to non-numeric [facility] results) Medical, ) Bilirubin.total 1.0 Normal (applies [facility] ( St [Mass/volume] in mg/dL to non-numeric [facility] Serum or Plasma results) Medical, ) Aspartate 19 IU/L Normal [...] Serum or Plasma ID Date Data Source [id number] 07/26/2019 12:00:00 AM EST [facility] ([facility], ) Name Value Range Interpretation Description Data Sup porting Code Source(s) Document(s ) Erythrocytes 5.50 Normal (applies [facility] (St [#/volume] in x10E6/uL to non-numeric [facility] Blood by results) Medical, ) Automated count Leukocytes 7.0 Normal (applies [facility] (St [#/volume] in x10E3/uL to non-numeric [facility] Blood by results) Medical, ) Automated count Hematocrit 45.6 % Normal (applies [facility] (St [Volume to non-numeric [facility] Fraction] of results) Medical, ) Blood by Automated count Hemoglobin 15.8 Normal (applies [facility] (St [Mass/volume] in g/dL to non-numeric [facility] Blood results) Medical, ) MCV 83 fL Normal (applies [facility] (St to non-numeric [facility] results) Medical, ) MCHC 34.6 Normal (applies [facility] (St g/dL to non-numeric [facility] results) Medical, ) MCH 28.7 pg Normal (applies [facility] (St to non-numeric [facility] results) Medical, ) RDW 14.2 % Normal (applies [facility] (St to non-numeric [facility] results) [facility], ) Platelets 241 Normal (applies [facility] (St [#/area] in x10E3/uL to non-numeric [facility] Blood by results) [facility], ) Microscopy high power field Neutrophils [#] 49 % Normal (applies [facility] ( St in Body fluid by to non-numeric [facility] Manual count results) [facility], ) Lymphs 38 % Normal (applies [facility] (St to non-numeric [facility] results) [facility], ) Monocytes 9 % Normal (applies [facility] (St [#/volume] in to non-numeric [facility] Cord blood results) [facility], ) Basos 1 % Normal (applies [facility] (St to non-numeric [facility] results) [facility], ) Eos 3 % Normal (applies [facility] (St to non-numeric [facility] results) [facility], ) Lymphs 2.6 Normal (applies [facility] (St (Absolute) x10E3/uL to non-numeric [facility] results) [facility], ) Neutrophils 3.5 Normal (applies [facility] (St (Absolute) x10E3/uL to non-numeric [facility] results) [facility], ) Monocytes(Absolu 0.6 Normal (applies [facility] (St te) x10E3/uL to non-numeric [facility] results) [facility], ) Baso (Absolute) 0.1 Normal (applies [facility] ( St x10E3/uL to non-numeric [facility] results) [facility], ) Eos (Absolute) 0.2 Normal (applies [facility] (S t x10E3/uL to non-numeric [facility] results) [facility], ) Immature Grans 0.0 Normal (applies [facility] (S t (Abs) x10E3/uL to non-numeric [facility] results) [facility], ) Immature 0 % Normal (applies [facility] (St Granulocytes to non-numeric [facility] results) [facility], ) Procedure Social History Code Duration Value Status Description Data Source(s ) Smoking 06/26/2020 no smoking completed no smoking [facility] (St 12:00:00 AM EDT drinking: drinking: [facility] dical, occasionally occasionally ) Smoking 06/26/2020 Unknown if ever completed Unknown if ever MED[facility] EN (St 12:00:00 AM EDT smoked smoked [facility], [facility]) Smoking 06/11/2020 no smoking completed no smoking [facility] (St 12:00:00 AM EDT drinking: drinking: Anjelica Corona dical, occasionally occasionally PC) Smoking 06/11/2020 Unknown if ever completed Unknown if ever MED[facility] EN (St 12:00:00 AM EDT smoked smoked Anjelica murray, PC) Smoking 04/10/2020 no smoking completed no smoking [facility] (St 12:00:00 AM EDT drinking: drinking: Anjelica Corona dical, occasionally occasionally PC) Smoking 04/10/2020 Unknown if ever completed Unknown if ever MED[facility] EN (St 12:00:00 AM EDT smoked smoked Anjelica murray, PC) Vital Signs ID Date Data Source UNK Name Value Range Interpretation Code Description Data Source(s) Body mass index 28.6 kg/m2 28.6 kg/m2 [facility] (S t (BMI) [Ratio] [facility]) Diastolic blood 86 mm[Hg] 86 mm[Hg] [facility] ([place] pressure [facility] Systolic blood 140 mm[Hg] 140 mm[Hg] [facility] ([facility]) Body weight 177 lb 177 lb [facility] ([facility]) Body height 66 in 66 in [facility] ([facility]) Body mass index 28.6 kg/m2 28.6 kg/m2 [facility] (S t (BMI) [Ratio] [facility]) Diastolic blood 72 mm[Hg] 72 mm[Hg] [facility] (S [place] pressure [facility] Systolic blood 140 mm[Hg] 140 mm[Hg] [facility] ([facility]) Body weight 177 lb 177 lb [facility] ([facility]) Body height 66 in 66 in [facility] ([facility]) Body mass index 28.6 kg/m2 28.6 kg/m2 [facility] (S t (BMI) [Ratio] [facility]) Diastolic blood 72 mm[Hg] 72 mm[Hg] [facility] (S t pressure [facility] Systolic blood 140 mm[Hg] 140 mm[Hg] [facility] ([facility]) Body weight 177 lb 177 lb [facility] ([facility]) Body height 66 in 66 in [facility] ([facility]) Heart rate 87 /min 87 /min [facility] ([facility]) Inhaled oxygen 94 % 94 % [facility] ([facility], ) Body mass index 28.6 kg/m2 28.6 kg/m2 [facility] (S t (BMI) [Ratio] [facility], ) Diastolic blood 88 mm[Hg] 88 mm[Hg] [facility] (S t pressure [facility] Systolic blood 140 mm[Hg] 140 mm[Hg] [facility] ([facility]) Body weight 177 lb 177 lb [facility] ([facility]) Body height 66 in 66 in [facility] ([facility]) Heart rate 87 /min 87 /min [facility] ([facility] , ) Inhaled oxygen 94 % 94 % [facility] ([facility], ) Body mass index 28.6 kg/m2 28.6 kg/m2 [facility] (S t (BMI) [Ratio] [facility], ) Diastolic blood 88 mm[Hg] 88 mm[Hg] [facility] (S t pressure [facility] Systolic blood 140 mm[Hg] 140 mm[Hg] [facility] ([facility]) Body weight 177 lb 177 lb [facility] ([facility]) Body height 66 in 66 in [facility] ([facility]) Heart rate 87 /min 87 /min [facility] ([facility]) Inhaled oxygen 94 % 94 % [facility] ([facility], ) Body mass index 28.6 kg/m2 28.6 kg/m2 [facility] (S t (BMI) [Ratio] [facility], ) Diastolic blood 88 mm[Hg] 88 mm[Hg] [facility] (S t pressure [facility] , ) Systolic blood 140 mm[Hg] 140 mm[Hg] [facility] ([facility] , ) Body weight 177 lb 177 lb [facility] ([facility]) Body height 66 in 66 in [facility] ([facility]) Body mass index 29.4 kg/m2 29.4 kg/m2 [facility] (S t (BMI) [Ratio] [facility], ) Diastolic blood 68 mm[Hg] 68 mm[Hg] [facility] (S t pressure [facility] Systolic blood 160 mm[Hg] 160 mm[Hg] [facility] ([facility]) Body weight 182 lb 182 lb [facility] ([facility]) [facility] height 66 in [facility] Body mass index 29.4 kg/m2 29.4 kg/m2 [facility] (S t (BMI) [Ratio] [facility], ) Diastolic blood 68 mm[Hg] 68 mm[Hg] [facility] (S t pressure [facility]) Systolic blood 160 mm[Hg] 160 mm[Hg] [facility] ([facility]) Body weight 182 lb 182 lb [facility] ([facility]) Body height 66 in 66 in [facility] ([facility]) Body mass index 29.4 kg/m2 29.4 kg/m2 [facility] (S t (BMI) [Ratio] [facility], ) Diastolic blood 68 mm[Hg] 68 mm[Hg] [facility] (S t pressure [facility] Systolic blood 160 mm[Hg] 160 mm[Hg] [facility] ([facility]) Body weight 182 lb 182 lb [facility] ([facility]) Body height 66 in 66 in [facility] ([facility]) Body mass index 30 kg/m2 30 kg/m2 [facility] (S t (BMI) [Ratio] [facility], ) Diastolic blood 76 mm[Hg] 76 mm[Hg] [facility] (S t pressure [facility] Systolic blood 134 mm[Hg] 134 mm[Hg] [facility] ([facility]) Body weight 186 lb 186 lb [facility] ([facility]) Body height 66 in 66 in [facility] ([facility]) Body mass index 30 kg/m2 30 kg/m2 [facility] (S t (BMI) [Ratio] [facility], ) Diastolic blood 76 mm[Hg] 76 mm[Hg] [facility] (S t pressure [facility] Systolic blood 134 mm[Hg] 134 mm[Hg] [facility] ([facility]) Body weight 186 lb 186 lb [facility] ([facility]) Body height 66 in 66 in [facility] ([facility]) Body mass index 30 kg/m2 30 kg/m2 [facility] (S t (BMI) [Ratio] [facility]) Diastolic blood 76 mm[Hg] 76 mm[Hg] [facility] (S t [facility]) Systolic blood 134 mm[Hg] 134 mm[Hg] [facility] ([facility]) Body weight 186 lb 186 lb [facility] ([facility]) Body height 66 in 66 in [facility] ([facility])
[2020-07-02] MEDS ORDERED: DICLOFENAC SODIUM 0.1% OPHTHALMIC 2.5ML BOTTLE ONE (06:28)
[2020-07-02] MEDS ORDERED: CIPROFLOXACIN HCL 0.3% OPHTH 2.5ML BOTTLE ONE (06:28)
[2020-07-02] MEDS ORDERED: TROPICAMIDE 1% OPHTH SOLN 15 ML BOTTLE ONE (06:29)
[2020-07-02] MEDS ORDERED: TETRACAINE 0.5% OPHTH SOLN 2 ML BOTTLE ONE (07:20)
[2020-07-02] MEDS ORDERED: LIDOCAINE HCL/PF 1% SDV 5ML VIAL ONE (07:20)
[2020-07-02] MEDS ORDERED: TOBRAMYCIN/DEXAMETHASONE OPHTH. OINTMENT 1 TUBE ONE (07:20)
[2020-07-02] MEDS ORDERED: EPINEPHrine/PF 1 MG/1 ML (1:1,000) AMPULE ONE (07:20)
[2020-07-02] MEDS ORDERED: POVIDONE-IODINE 5% OPHTHALMIC PREP 30 ML SOLUTION ONE (07:21)
[2020-07-02] MEDS ORDERED: ACETYLCHOLINE 1:100 INTRA-OCUL 20 MG/2 ML KIT ONE (07:21)
[2020-07-02] MEDS ORDERED: TRYPAN BLUE 0.5 ML DISP.SYRIN ONE (07:21)
[2020-07-02] MEDS ORDERED: ACETAMINOPHEN 325 MG TABLET (FP) PO PRN ×2 (07:23→13:57)
[2020-07-02] MEDS ORDERED: MIDAZOLAM HCL 2 MG/2 ML SINGLE DOSE VIAL ONE (07:24)
--- NOTE | 2020-07-02 07:28 | HP ---
History & Physical Update - History History: No Change - Physical Physical: No Change - Assessment Assessment: No Change - Plan Plan: No Change (H and P reviewed from Dr. Terry from 06/30/20 no changes)
--- NOTE | 2020-07-02 07:28 | HP ---
- Patient Scheduled date of Surgery: 07/02/20 Scheduled Surgical Procedure: Phacoemulsification and cataract extraction with PCIOL Affected Eye: Left Chief Complaint (Indication for surgery): Decreased vision affecting ADLs, Glare when driving at night - Ocular History Other Eye History: Other (none) Eye Medications: vigamox Previous Eye Surgery: none - Medical History Illnesses: COPD, Hypertension, Hypercholesterolemia Current Medications: Ambulatory Orders Simvastatin [Zocor -] 40 mg PO HS 01/12/15 Budesonide/Formeterol Fumarate [SYMBICORT 160/4.5mcg -] 2 inh PO DAILY 07/01/20 Olmesartan Medoxomil [Benicar (Nf)] 40 mg PO DAILY 07/01/20 Tiotropium Br/Olodaterol HCl [Stiolto Respimat Inhal [place]] 1 puff IH DAILY 07/01/20 Allergies/Adverse Reactions: Allergies Allergy/AdvReac Type Severity Reaction Status Date / Time No Known Allergies Allergy Verified 07/01/20 16:42 Ocular Examination - Best Corrected Visual Acuity Distance: Right eye: 20/40 Distance: Left eye: 20/40 - External/Slit Lamp Examination Abnormalities: none - Intraocular Pressure Intraocular Pressure (mm/Hg) - Right eye: 19 Intraocular Pressure (mm/Hg)-Left eye: 19 - Lens Lens: 2+ NS 1+ cortical - Vitreous/Retina Vitreous/Retina: C:D 0.15 m/v/p wnl - Special Examination M - Right eye: +2.25-0.50 x 075 M - Left eye: +2.75 -0.75 x 105 K - Right eye: 43.60/44.29 x180 K - Left eye: 43.823/44.35 X 177 AL - Right eye: 23.48 AL - Left eye: 23.15 IOL bag: +22.0 AUOOTO IOL sulcus: +21.0 [id number] IOL AC: +19.0 MTA 4UO - Impression Impression: Cataract Left Eye - Plan Plan: Phacoemulsification and cataract extraction - IOL Left eye Post-hospital care will be provided in office on: 07/03/20
[2020-07-02] MEDS ORDERED: CIPROFLOXACIN HCL 0.3% OPHTH 2.5ML BOTTLE OP SCH (07:30)
[2020-07-02] MEDS ORDERED: KETOROLAC TROMETHAMINE 0.5% EYE DROP 1 DROP DROPS OP SCH (07:30)
[2020-07-02] MEDS ORDERED: TROPICAMIDE 1% OPHTH SOLN 15 ML BOTTLE OP SCH (07:30)
[2020-07-02] MEDS ORDERED: PHENYLEPHRINE 2.5% OPHTH SOLN 15 ML BOTTLE OP SCH (07:30)
[2020-07-02] MEDS ORDERED: TETRACAINE 0.5% OPHTH SOLN 2 ML BOTTLE OD ONE (07:45)
[2020-07-02] MEDS ORDERED: LIDOCAINE HCL 1% PRESERVATIVE FREE - 30ML VIAL IO ONE (08:00)
[2020-07-02] MEDS ORDERED: CHONDROITIN SU A/HYALUR SOD 1 KIT IO ONE (08:01)
[2020-07-02] MEDS ORDERED: EPINEPHrine/PF 1 MG/1 ML (1:1,000) AMPULE SQ ONE (08:08)
[2020-07-02] MEDS ORDERED: TOBRAMYCIN/DEXAMETHASONE OPHTH. OINTMENT 1 TUBE TP ONE (08:20)
[2020-07-02] MEDS ORDERED: ONDANSETRON 4 MG/2 ML VIAL IVPUSH PRN ×2 (08:31→13:57)
--- NOTE | 2020-07-02 08:44 | OP ---
Ophthalmology Operative Note Pre-Operative Diagnosis: Cataract Affected Eye: Left (Ns) Findings: nuclear sclerotic cataract left eye Post-Operative Diagnosis: Same as Pre-op Appliquer Zigzag: None Anesthesiologist: Paulino Avery Anesthesia: Topical Specimens Removed: none Estimated blood loss: <1 cc Drains & Tubes with Location: none Operative Report Dictated: Yes
[2020-07-02] MEDS ORDERED: LACTATED RINGERS SOLUTION 1,000 ML IV SCH ×2 (08:45→14:00)
[2020-07-02 08:51] VITALS: TEMP 98
--- NOTE | 2020-07-02 09:42 | OP ---
DATE OF OPERATION: DATE OF DICTATION: 07/02/2020 PREOPERATIVE DIAGNOSIS: Nuclear sclerotic cataract, left eye. POSTOPERATIVE DIAGNOSIS: Nuclear sclerotic cataract, left eye. PROCEDURE: Phacoemulsification and cataract extraction with insertion of posterior chamber intraocular lens, left eye. SURGEON: Elie Morales MD AUTOMATIC OVEN OPERATOR: None. ANESTHESIA: Topical. ANESTHESIOLOGIST: Paulino Avery CRNA OPERATIVE PROCEDURE: The patient received Tetracaine eye drops and was gently sedated and prepped and draped in the usual sterile fashion so as to expose only the left eye. Ophthalmic Betadine was instilled into the inferior fornix and lashes were taped out of the surgical field. An eyelid speculum was placed into the left eye. Paracentesis was made in inferior temporal clear cornea at the limbus. Then 0.5 mL of nonpreserved lidocaine 1% was injected into the anterior chamber and then 1 mL of dilute epinephrine 1:10,000 was injected into the anterior chamber to improve pupillary dilation. Viscoelastic material was instilled into the anterior chamber via the paracentesis. A 2.4-mm keratome blade was then used to create the main incision in temporal clear cornea at the limbus. A continuous curvilinear capsulorrhexis was performed using a cystotome and Utrata forceps. Hydrodissection of the lens cortex was performed using BSS on a cannula until the nucleus was noted to be freely rotating. The phacoemulsification tip was then inserted via the main wound and used to scope 2 perpendicular grooves into the lens nucleus. The nucleus was cracked into 4 quadrants. Each quadrant was lifted out of the capsule into the iris plane and individually phacoemulsified. The remaining cortical material was then aspirated using the irrigation/aspiration port. The capsular bag was inflated using Provisc and a preloaded AcrySof lens model [id number] power +22.0 diopters was injected into the capsular bag. It was centered using a [place] hook. The residual viscoelastic material was removed from the anterior chamber using irrigation and aspiration. The wound edges were hydrated using BSS. The wound was tested for leakage and was found to be watertight. Tobradex ointment was placed in the eye, and the speculum was removed from the eye, and the eyelid was closed. A sterile dressing and shield were placed over the eye. The patient was transferred to the recovery room in stable condition, told to follow up in 1 day. ELIE MORALES M.D. [id number]
[2020-07-02 10:17] VITALS: BP 141/54; PULSE 83
== END 2020-07-02 09:30 | disposition home or self-care (01) ==
LOC: JASU-SURG 04:27
PROVIDERS: ATTEND Ophthalmology
PROC: 08RK3JZ Replacement of Left Lens with Synthetic Substitute, Percutaneous Approach (ICD-10-PCS; principal; 2020-07-02 07:30)
DX: H25.12 Age-related nuclear cataract, left eye (principal)

== ENCOUNTER 2020-07-23 04:38 | Day surgery (SDC) | payer OTHER, BC ==
[2020-07-22 07:26] VITALS: BMI 29.6
[~2020-07-23 04:38] MED LIST changes: +BSS (NA/CA/MG/K) BALANCED SALT SOLUTION OPHTH SOLN 15 ML BOTTLE OD ONE; +CHONDROITIN SU A/HYALUR SOD 1 KIT IO ONE; +EPINEPHrine/PF 1 MG/1 ML (1:1,000) AMPULE SQ ONE; +LIDOCAINE HCL 1% PRESERVATIVE FREE - 30ML VIAL IO ONE; -LIDOCAINE HCL 2% JELLY 10 ML CARTRIDGE TP ONE; +POVIDONE-IODINE 5% OPHTHALMIC PREP 30 ML SOLUTION OD ONE; +TETRACAINE 0.5% OPHTH SOLN 2 ML BOTTLE OD ONE; +TOBRAMYCIN/DEXAMETHASONE OPHTH. OINTMENT 1 TUBE OD ONE
--- OUTSIDE RECORDS SUMMARY | 2020-07-23 04:43 | XMS ---
[...] is protected by Article 27-F of the [place] State Public Health law. If you continue you may haveaccess to information: Regarding HIV / AIDS; Provided by facilities licensed or operated by the [facility] Office of Mental Health; or Provided by the [facility] Office for People With Developmental Disabilities. If such information is present, then the following [facility] mandated warning applies: This information has been [...] law may result in a fine or penitentiary sentence or both. A general authorization for [...] Blake 04/10/2020 12:00:00 AM EDT MEDGEN ([facility], ) Office Immunizations Vaccine Date Status Description Data Source(s) New in 2011. IIV4 06/26/2020 12:00:00 completed ME TOYIN ([facility] Medical, ) Insurance Providers Payer name Policy type Policy ID Covered Covered alliance party's Policy P andrew / Coverage alliance party ID relationship to Carmona Inf ormation type carmona BC PPO [id number] SP [id number] MEDICARE [id number] SP [id number] PPO [id number] SP [id number] MEDICARE [id number] SP [id number] [place] [id number] 1 [id number] PART B DOWNSTATE [employer] [place] [id number] 1 [id number] [place] [id number] 1 [id number] PART B DOWNSTATE Problems, Conditions, and Diagnoses Code Display Name Description Problem Type Effective Dates Data Source(s) L29.8 Other pruritus OTHER PRURITUS Problem 11/15/2019 MEDGEN ([facility] 12:00:00 AM [facility] Medical, ) L29.8 Other pruritus OTHER PRURITUS Problem 11/15/2019 MEDGEN ([facility] 12:00:00 AM EST Medical, ) L29.8 Other pruritus OTHER PRURITUS Problem 11/15/2019 [facility] ([facility] 12:00:00 AM [facility], ) Surgeries/Procedures Procedure Description Date Indications Data Source(s) Documentation of current 06/26/2020 MED GEN ([facility] medications (procedure) 12:00:00 AM EDT Daniel xavier, ) Documentation of current 06/26/2020 MED GEN ([facility] medications (procedure) 12:00:00 AM EDT Daniel xavier, ) OFFICE OUTPATIENT VISIT 25 06/26/2020 Daniel DUNCAN ([facility] MINUTES 12:00:00 AM [facility] Medical, ) THERAPEUTIC 06/26/2020 MEDGEN ([facility] PROPHYLACTIC/DX INJECTION 12:00:00 AM [facility], ) SUBQ/IM FLU QUAD 36 MOS & ABOVE 06/26/2020 [facility] COLLECTION VENOUS BLOOD 06/26/2020 MEDG EN ([facility] VENIPUNCTURE 12:00:00 AM [facility], ) Documentation of current 06/11/2020 MED GEN ([facility] medications (procedure) 12:00:00 AM [facility], ) OFFICE OUTPATIENT VISIT 25 06/11/2020 M EDGEN ([facility] MINUTES 12:00:00 AM [facility], ) ECG ROUTINE ECG W/LEAST 12 06/11/2020 EDGEN ([facility] LDS W/I&R 12:00:00 AM [facility], ) COLLECTION VENOUS BLOOD 06/11/2020 MEDG EN ([facility] VENIPUNCTURE 12:00:00 AM [facility], ) Documentation of current 06/11/2020 MED GEN ([facility] medications (procedure) 12:00:00 AM [facility], ) OFFICE OUTPATIENT VISIT 25 06/11/2020 EDGEN ([facility] MINUTES 12:00:00 AM [facility]) ECG ROUTINE ECG W/LEAST 12 06/11/2020 EDGEN ([facility] LDS W/I&R 12:00:00 AM [facility], ) COLLECTION VENOUS BLOOD 06/11/2020 MEDG EN ([facility] VENIPUNCTURE 12:00:00 AM [facility], ) Documentation of current 04/10/2020 MED GEN ([facility] medications (procedure) 12:00:00 AM [facility], ) OFFICE OUTPATIENT VISIT 15 04/10/2020 EDGEN ([facility] MINUTES 12:00:00 AM [facility], ) Documentation of current 04/10/2020 MED GEN ([facility] medications (procedure) 12:00:00 AM [facility], ) OFFICE OUTPATIENT VISIT 15 04/10/2020 EDGEN ([facility] MINUTES 12:00:00 AM [facility], ) Documentation of current 04/10/2020 MED GEN ([facility] medications (procedure) 12:00:00 AM [facility], ) OFFICE OUTPATIENT VISIT 15 04/10/2020 EDGEN ([facility] MINUTES 12:00:00 AM [facility]) Documentation of current 11/15/2019 MED GEN ([facility] medications (procedure) 12:00:00 AM EST Daniel xavier, PC) Documentation of current 11/15/2019 MED GEN ([facility] medications (procedure) 12:00:00 AM NENA xavier, PC) Documentation of current 11/15/2019 MED GEN ([facility] medications (procedure) 12:00:00 AM NENA xavier, PC) Documentation of current 11/15/2019 MED GEN ([facility] medications (procedure) 12:00:00 AM NENA xavier, PC) Documentation of current 11/15/2019 MED GEN ([facility] medications (procedure) 12:00:00 AM EST Daniel xavier, PC) OFFICE OUTPATIENT VISIT 15 11/15/2019 Daniel PERLA ([facility] MINUTES 12:00:00 AM EST Medical, PC) Documentation of current 11/15/2019 MED GEN ([facility] medications (procedure) 12:00:00 AM NENA xavier, PC) Documentation of current 11/15/2019 MED GEN ([facility] medications (procedure) 12:00:00 AM NENA xavier, PC) Documentation of current 11/15/2019 MED GEN ([facility] medications (procedure) 12:00:00 AM EST Daniel xavier, PC) Documentation of current 11/15/2019 MED GEN ([facility] medications (procedure) 12:00:00 AM EST Daniel xavier, PC) Documentation of current 11/15/2019 MED GEN ([facility] medications (procedure) 12:00:00 AM NENA xavier, PC) OFFICE OUTPATIENT VISIT 15 11/15/2019 Daniel VIKKIN ([facility] MINUTES 12:00:00 AM EST Medical, PC) Documentation of current 11/15/2019 MED GEN ([facility] medications (procedure) 12:00:00 AM EST Daniel xavier, PC) Documentation of current 11/15/2019 MED GEN ([facility] medications (procedure) 12:00:00 AM EST Daniel xavier, PC) Documentation of current 11/15/2019 MED GEN ([facility] medications (procedure) 12:00:00 AM EST Daneil xavier, PC) Documentation of current 11/15/2019 MED GEN ([facility] medications (procedure) 12:00:00 AM EST Daniel xavier, ) Documentation of current 11/15/2019 MED GEN ([facility] medications (procedure) 12:00:00 AM EST Daniel wrightical, ) OFFICE OUTPATIENT VISIT 15 11/15/2019 Daniel PERLA ([facility] MINUTES 12:00:00 AM EST Medical, ) Documentation of current 07/26/2019 MED GEN ([facility] medications (procedure) 12:00:00 AM EST Daniel wrightical, PC) Influenza virus vaccine, 07/26/2019 MED GEN ([facility] split virus, when 12:00:00 AM EST Medical , ) administered to individuals 3 years of age and older, for intramuscular use (flulaval) Administration of 07/26/2019 MEDGEN ([facility] influenza virus vaccine 12:00:00 AM EST Daniel wrightical, ) OFFICE OUTPATIENT VISIT 25 07/26/2019 Daniel PERLA ([facility] MINUTES 12:00:00 AM EST Medical, ) COLLECTION VENOUS BLOOD 07/26/2019 MEDG EN ([facility] VENIPUNCTURE 12:00:00 AM EST Medical, ) Documentation of current 07/26/2019 MED GEN ([facility] medications (procedure) 12:00:00 AM EST [facility], PC) Influenza virus vaccine, 07/26/2019 MED GEN ([facility] split virus, when 12:00:00 AM EST Medical , PC) administered to individuals 3 years of age and older, for intramuscular use (flulaval) Administration of 07/26/2019 MEDGEN ([facility] influenza virus vaccine 12:00:00 AM EST k[facility]ical, ) OFFICE OUTPATIENT VISIT 25 07/26/2019 Daniel PERLA ([facility] MINUTES 12:00:00 AM EST Medical, PC) COLLECTION VENOUS BLOOD 07/26/2019 MEDG EN ([facility] VENIPUNCTURE 12:00:00 AM EST Medical, PC) Documentation of current 07/26/2019 MED GEN ([facility] medications (procedure) 12:00:00 AM EST kyleical, ) Influenza virus vaccine, 07/26/2019 MED GEN ([facility] split virus, when 12:00:00 AM EST Medical , PC) administered to individuals 3 years of age and older, for intramuscular use (flulaval) Administration of 07/26/2019 MEDGEN ([facility] influenza virus vaccine 12:00:00 AM EST Daniel xavier ) OFFICE OUTPATIENT VISIT 25 07/26/2019 Daniel DUNCAN ([facility] MINUTES 12:00:00 AM [facility], ) COLLECTION VENOUS BLOOD 07/26/2019 MEDG EN ([facility] VENIPUNCTURE 12:00:00 AM [facility], ) Results ID Date Data Source [id number] 07/19/2020 08:40:00 AM EST [facility] Name Value Range Interpretation Description Data Sup porting Code Source(s) Document(s ) SARS [facility] coronavirus 2 RNA This lab was ordered by [facility] and reported by [facility]. ID Date Data Source [id number] 06/28/2020 08:20:00 AM EDT [facility] Name Value Range Interpretation Description Data Sup porting Code Source(s) Document(s ) SARS [facility] coronavirus 2 RNA This lab was ordered by [facility] and reported by [facility]. ID Date Data Source [id number] 07/26/2019 12:00:00 AM EST [facility] ([facility], ) Name Value Range Interpretation Description Data Sup porting Code Source(s) Document(s ) Vitamin D, 14.7 Below low normal MED[facility] (St 25-Hydroxy ng/mL [facility], ) ID Date Data Source [id number] 07/26/2019 12:00:00 AM EST [facility] ([facility], ) Name Value Range Interpretation Description Data Sup porting Code Source(s) Document(s ) Prostate 1.3 ng/mL Normal (applies to [facility] (St Specific Ag, non-numeric [facility] Serum results) Medical, ) ID Date Data Source [id number] 07/26/2019 12:00:00 AM EST [facility] ([facility], ) Name Value Range Interpretation Description Data Sup porting Code Source(s) Document(s ) Vitamin B12 281 pg/mL Normal (applies to [facility]GEN (S t non-numeric [facility] results) Medical, ) Folate 15.8 Normal (applies to [facility] (St (Folic ng/mL non-numeric [facility] Acid), Serum results) Medical, ) ID Date Data Source [id number] 07/26/2019 12:00:00 AM EST [facility]GEN ([facility], ) Name Value Range Interpretation Description Data Sup porting Code Source(s) Document(s ) Bilirubin.c 0.21 mg/dL Normal (applies to MEDGEN ( St onjugated non-numeric [facility] [Mass/volum results) Medical, ) e] in Serum or Plasma ID Date Data Source [id number] 07/26/2019 12:00:00 AM EST [facility] ([facility], ) Name Value Range Interpretation Description Data Sup porting Code Source(s) Document(s ) Triglyceride 179 Above high normal [facility] (S t [Mass/volume] in mg/dL [facility] Serum or Plasma [facility], ) Cholesterol 158 Normal (applies [facility] (St [Mass/volume] in mg/dL to non-numeric [facility] Serum or Plasma results) [facility], ) HDL Cholesterol 39 mg/dL Below low normal [facility] ([facility], ) LDL Cholesterol 83 mg/dL Normal (applies [facility]GEN ( St Calc to non-numeric [facility] results) [facility], ) VLDL Cholesterol 36 mg/dL Normal (applies [facility] (St Lito to non-numeric [facility] results) [facility], ) ID Date Data Source [id number] 07/26/2019 12:00:00 AM EST [facility] ([facility], ) Name Value Range Interpretation Description Data Sup porting Code Source(s) Document(s ) Glucose 104 Above high [facility] (St [Mass/volume] in mg/dL normal [facility] Urine collected for Medical, unspecified PC) duration Creatinine 1.22 Normal (applies [facility]GEN (St [Interpretation] in mg/dL to non-numeric [facility] Urine results) [facility], ) Urea nitrogen 22 mg/dL Normal (applies [facility]GEN (St [Mass/volume] in to non-numeric [facility] Serum or Plasma results) Medical, ) eGFR If NonAfricn 55 Below low normal MEDGE N (St Am mL/min/1 [facility] .73 [facility], ) eGFR If Africn Am 63 Normal (applies MEDGEN (St mL/min/1 to non-numeric [facility] .73 results) Medical, ) BUN/Creatinine 18 Normal (applies [facility] (S t Ratio to non-numeric [facility] results) Medical, PC) Sodium 140 Normal (applies [facility]GEN (St [Moles/volume] in mmol/L to non-numeric [facility] Serum or Plasma results) Medical, PC) Potassium 4.8 Normal (applies MEDGEN (St [Mass/volume] in mmol/L to non-numeric [facility] Blood results) Medical, PC) Carbon dioxide, 23 Normal [...] (St to non-numeric [facility] results) Medical, PC) Alkaline 66 IU/L Normal [...] Serum or Plasma ID Date Data Source [id number] 07/26/2019 12:00:00 AM EST [facility] ([facility], ) Name Value Range Interpretation Description Data Sup porting Code Source(s) Document(s ) Leukocytes 7.0 Normal (applies MEDGEN (St [#/volume] in x10E3/uL to non-numeric [facility] Blood by results) [facility], ) Automated count Hemoglobin 15.8 Normal (applies MEDGEN (St [Mass/volume] in g/dL to non-numeric [facility] Blood results) [facility], ) Erythrocytes 5.50 Normal (applies MEDGEN (St [#/volume] in x10E6/uL to non-numeric [facility] Blood by results) [facility], ) Automated count MCV 83 fL Normal (applies MEDGEN (St to non-numeric [facility] results) [facility], ) Hematocrit 45.6 % Normal (applies MEDGEN (St [Volume to non-numeric [facility] Fraction] of results) [facility], ) Blood by Automated count MCH 28.7 pg Normal (applies MEDGEN (St to non-numeric [facility] results) [facility], ) MCHC 34.6 Normal (applies MEDGEN (St g/dL to non-numeric [facility] results) [facility], ) RDW 14.2 % Normal (applies MEDGEN (St to non-numeric [facility] results) [facility], ) Platelets 241 Normal (applies MEDGEN (St [#/area] in x10E3/uL to non-numeric [facility] Blood by results) [facility], ) Microscopy high power field Neutrophils [#] 49 % Normal (applies MEDGEN ( St in Body fluid by to non-numeric [facility] Manual count results) [facility], ) Lymphs 38 % Normal (applies MEDGEN (St to non-numeric [facility] results) [facility], ) Monocytes 9 % Normal (applies MEDGEN (St [#/volume] in to non-numeric [facility] Cord blood results) [facility], ) Eos 3 % Normal (applies MEDGEN (St to non-numeric [facility] results) [facility], ) Basos 1 % Normal (applies MEDGEN (St to non-numeric [facility] results) [facility], ) Neutrophils 3.5 Normal (applies MEDGEN (St (Absolute) x10E3/uL to non-numeric [facility] results) [facility], ) Lymphs 2.6 Normal (applies MEDGEN (St (Absolute) x10E3/uL to non-numeric [facility] results) [facility], ) Eos (Absolute) 0.2 Normal (applies MEDGEN [...] results) Medical, ) ID Date Data Source [id number] 07/26/2019 12:00:00 AM EST [facility] ([facility], ) Name Value Range Interpretation Description Data Sup porting Code Source(s) Document(s ) Vitamin D, 14.7 Below low normal MEDGEN (St 25-Hydroxy ng/mL [facility], ) ID Date Data Source [id number] 07/26/2019 12:00:00 AM EST [facility] ([facility], ) Name Value Range Interpretation Description Data Sup porting Code Source(s) Document(s ) Prostate 1.3 ng/mL Normal (applies to MEDGEN (St Specific Ag, non-numeric [facility] Serum results) [facility], ) ID Date Data Source [id number] 07/26/2019 12:00:00 AM EST [facility] ([facility], ) Name Value Range Interpretation Description Data Sup porting Code Source(s) Document(s ) Vitamin B12 281 pg/mL Normal (applies to MEDGEN (S t non-numeric [facility] results) Medical, ) Folate 15.8 Normal (applies to MEDGEN (St (Folic ng/mL non-numeric [facility] Acid), Serum results) [facility], ) ID Date Data Source [id number] 07/26/2019 12:00:00 AM EST [facility] ([facility], ) Name Value Range Interpretation Description Data Sup porting Code Source(s) Document(s ) Bilirubin.c 0.21 mg/dL Normal (applies to MEDGEN ( St onjugated non-numeric [facility] [Mass/volum results) Medical, ) e] in Serum or Plasma ID Date Data Source [id number] 07/26/2019 12:00:00 AM EST [facility], ) Name Value Range Interpretation Description Data Sup porting Code Source(s) Document(s ) Cholesterol 158 Normal (applies MEDGEN (St [Mass/volume] in mg/dL to non-numeric [facility] Serum or Plasma results) Medical, ) Triglyceride 179 Above high normal MEDGEN (S t [Mass/volume] in mg/dL [facility] Serum or Plasma Medical, ) HDL Cholesterol 39 mg/dL Below low normal [facility] ([facility], ) VLDL Cholesterol 36 mg/dL Normal (applies MEDGEN (St Lito to non-numeric [facility] results) Medical, ) LDL Cholesterol 83 mg/dL Normal (applies MEDGEN ( St Calc to non-numeric [facility] results) Medical, ) ID Date Data Source [id number] 07/26/2019 12:00:00 AM EST [facility] ([facility], ) Name Value Range Interpretation Description [...] to non-numeric [facility] Blood results) Medical, ) Sodium 140 Normal (applies [...] Serum or Plasma ID Date Data Source [id number] 07/26/2019 12:00:00 AM EST [facility] ([facility], ) Name Value Range Interpretation Description Data Sup porting Code Source(s) Document(s ) Leukocytes 7.0 Normal (applies MEDGEN (St [#/volume] in x10E3/uL to non-numeric [facility] Blood by results) Medical, ) Automated count Erythrocytes 5.50 Normal (applies MEDGEN (St [#/volume] in x10E6/uL to non-numeric [facility] Blood by results) [facility], ) Automated count Hemoglobin 15.8 Normal (applies MEDGEN (St [Mass/volume] in g/dL to non-numeric [facility] Blood results) [facility], ) Hematocrit 45.6 % Normal (applies MEDGEN (St [Volume to non-numeric [facility] Fraction] of results) [facility], ) Blood by Automated count MCV 83 fL Normal (applies MEDGEN (St to non-numeric [facility] results) [facility], ) MCHC 34.6 Normal (applies MEDGEN (St g/dL to non-numeric [facility] results) [facility], ) MCH 28.7 pg Normal (applies MEDGEN (St to non-numeric [facility] results) [facility], ) RDW 14.2 % Normal (applies MEDGEN (St to non-numeric [facility] results) [facility], ) Platelets 241 Normal (applies MEDGEN (St [#/area] in x10E3/uL to non-numeric [facility] Blood by results) [facility], ) Microscopy high power field Neutrophils [#] 49 % Normal (applies MEDGEN ( St in Body fluid by to non-numeric [facility] Manual count results) [facility], ) Monocytes 9 % Normal (applies MEDGEN (St [#/volume] in to non-numeric [facility] Cord blood results) [facility], ) Lymphs 38 % Normal (applies MEDGEN (St to non-numeric [facility] results) [facility], ) Eos 3 % Normal (applies MEDGEN (St to non-numeric [facility] results) [facility], ) Neutrophils 3.5 Normal (applies MEDGEN (St (Absolute) x10E3/uL to non-numeric [facility] results) [facility], ) Basos 1 % Normal (applies MEDGEN (St to non-numeric [facility] results) [facility], ) Lymphs 2.6 Normal (applies MEDGEN (St (Absolute) x10E3/uL to non-numeric [facility] results) [facility], ) Monocytes(Absolu 0.6 Normal (applies MEDGEN (St te) x10E3/uL to non-numeric [facility] results) [facility], ) Eos (Absolute) 0.2 Normal (applies MEDGEN (S t x10E3/uL to non-numeric [facility] results) [facility], ) Baso (Absolute) 0.1 Normal (applies MEDGEN ( St x10E3/uL to non-numeric [facility] results) Medical, ) Immature Grans 0.0 Normal (applies MEDGEN (S t (Abs) x10E3/uL to non-numeric [facility] results) Medical, ) Immature 0 % Normal (applies MEDGEN (St Granulocytes to non-numeric [facility] results) Medical, ) ID Date Data Source [id number] 07/26/2019 12:00:00 AM EST [facility] ([facility], ) Name Value Range Interpretation Description Data Sup porting Code Source(s) Document(s ) Vitamin D, 14.7 Below low normal MEDGEN (St 25-Hydroxy ng/mL [facility], ) ID Date Data Source [id number] 07/26/2019 12:00:00 AM EST [facility] ([facility], ) Name Value Range Interpretation Description Data Sup porting Code Source(s) Document(s ) Prostate 1.3 ng/mL Normal (applies to MEDGEN (St Specific Ag, non-numeric [facility] Serum results) [facility], ) ID Date Data Source [id number] 07/26/2019 12:00:00 AM EST [facility] ([facility], ) Name Value Range Interpretation Description Data Sup porting Code Source(s) Document(s ) Vitamin B12 281 pg/mL Normal (applies to MEDGEN (S t non-numeric [facility] results) Medical, ) Folate 15.8 Normal (applies to MEDGEN (St (Folic ng/mL non-numeric [facility] Acid), Serum results) [facility], ) ID Date Data Source [id number] 07/26/2019 12:00:00 AM EST [facility] ([facility], ) Name Value Range Interpretation Description Data Sup porting Code Source(s) Document(s ) Bilirubin.c 0.21 mg/dL Normal (applies to MEDGEN ( St onjugated non-numeric [facility] [Mass/volum results) Medical, ) e] in Serum or Plasma ID Date Data Source [id number] 07/26/2019 12:00:00 AM EST [facility] ([facility], ) Name Value Range Interpretation Description Data Sup porting Code Source(s) Document(s ) Cholesterol 158 Normal (applies MEDGEN (St [Mass/volume] in mg/dL to non-numeric [facility] Serum or Plasma results) Medical, ) Triglyceride 179 Above high normal MEDGEN (S t [Mass/volume] in mg/dL [facility] Serum or Plasma Medical, ) HDL Cholesterol 39 mg/dL Below low normal [facility] ([facility], ) LDL Cholesterol 83 mg/dL Normal (applies MEDGEN ( St Calc to non-numeric [facility] results) Medical, ) VLDL Cholesterol 36 mg/dL Normal (applies MEDGEN (St Lito to non-numeric [facility] results) Medical, ) ID Date Data Source [id number] 07/26/2019 12:00:00 AM EST [facility], ) Name Value Range Interpretation Description Data Sup porting Code Source(s) Document(s ) Urea nitrogen 22 mg/dL Normal (applies MEDGEN (St [Mass/volume] in to non-numeric [facility] Serum or Plasma results) Medical, ) Glucose 104 Above high MEDGEN (St [Mass/volume] in mg/dL normal [facility] Urine collected for Medical, unspecified PC) duration Creatinine 1.22 Normal (applies MEDGEN (St [Interpretation] in mg/dL to non-numeric [facility] Urine results) Medical, ) eGFR If NonAfricn 55 Below low normal MEDGE N (St Am mL/min/1 [facility] .73 Medical, ) eGFR If Africn Am 63 Normal (applies [facility]GEN (St mL/min/1 to non-numeric [facility] .73 results) Medical, ) Sodium 140 Normal (applies MEDGEN (St [Moles/volume] in mmol/L to non-numeric [facility] Serum or Plasma results) Medical, ) BUN/Creatinine 18 Normal (applies MEDGEN (S t Ratio to non-numeric [facility] results) Medical, ) Potassium 4.8 Normal (applies MEDGEN (St [Mass/volume] in mmol/L to non-numeric [facility] Blood results) Medical, ) Chloride 102 Normal (applies MEDGEN (St [Moles/volume] in mmol/L to non-numeric [facility] Serum or Plasma results) Medical, ) Carbon dioxide, 23 Normal [...] Serum or Plasma ID Date Data Source [id number] 07/26/2019 12:00:00 AM EST [facility] ([facility] [...] in g/dL to non-numeric [facility] Blood results) [facility], ) MCV 83 fL Normal (applies MEDGEN (St to non-numeric [facility] results) [facility], ) MCHC 34.6 Normal (applies MEDGEN (St g/dL to non-numeric [facility] results) [facility], ) MCH 28.7 pg Normal (applies MEDGEN (St to non-numeric [facility] results) [facility], ) RDW 14.2 % Normal (applies MEDGEN (St to non-numeric [facility] results) [facility], ) Platelets 241 Normal (applies MEDGEN (St [#/area] in x10E3/uL to non-numeric [facility] Blood by results) [facility], ) Microscopy high power field Neutrophils [#] 49 % Normal (applies [facility] ( St in Body fluid by to non-numeric [facility] Manual count results) [facility], ) Lymphs 38 % Normal (applies [facility] (St to non-numeric [facility] results) [facility], ) Monocytes 9 % Normal (applies [facility] (St [#/volume] in to non-numeric [facility] Cord blood results) [facility], ) Basos 1 % Normal (applies [facility] (St to non-numeric [facility] results) [facility], ) Eos 3 % Normal (applies [facility] (St to non-numeric [facility] results) [facility], ) Lymphs 2.6 Normal (applies [facility] (St (Absolute) x10E3/uL to non-numeric [facility] results) [facility], ) Neutrophils 3.5 Normal (applies [facility] (St (Absolute) x10E3/uL to non-numeric [facility] results) [facility], ) Monocytes(Absolu 0.6 Normal (applies [facility] (St te) x10E3/uL to non-numeric [facility] results) [facility], ) Baso (Absolute) 0.1 Normal (applies [facility] ( St x10E3/uL to non-numeric [facility] results) [facility], ) Eos (Absolute) 0.2 Normal (applies [facility] (S t x10E3/uL to non-numeric [facility] results) [facility], ) Immature Grans 0.0 Normal (applies [facility] (S t (Abs) x10E3/uL to non-numeric [facility] results) [facility], [facility]) Immature 0 % Normal (applies [facility] (St Granulocytes to non-numeric [facility] results) [facility]) Procedure Social History Code Duration Value Status Description Data Source(s ) Smoking 06/26/2020 no smoking completed no smoking [facility] (St 12:00:00 AM EDT drinking: drinking: [facility], occasionally occasionally PC) Smoking 06/26/2020 Unknown if ever completed Unknown if ever MEDG EN (St 12:00:00 AM EDT smoked smoked [facility], [facility]) Smoking 06/11/2020 no smoking completed no smoking [facility] (St 12:00:00 AM EDT drinking: drinking: [facility], occasionally occasionally PC) Smoking 06/11/2020 Unknown if ever completed Unknown if ever MED[facility] EN (St 12:00:00 AM EDT smoked smoked [facility]) Smoking 04/10/2020 no smoking completed no smoking [facility] (St 12:00:00 AM EDT drinking: drinking: [facility], occasionally occasionally PC) Smoking 04/10/2020 Unknown if ever completed Unknown if ever MED[facility] EN (St 12:00:00 AM EDT smoked smoked [facility]) Vital Signs ID Date Data Source UNK Name Value Range Interpretation Code Description Data Source(s) Body mass index 28.6 kg/m2 28.6 kg/m2 [facility] (S t (BMI) [Ratio] [facility], ) Diastolic blood 86 mm[Hg] 86 mm[Hg] [facility] (S t pressure [facility] , ) Systolic blood 140 mm[Hg] 140 mm[Hg] [facility] (St pressure [facility] , ) Body weight 177 lb 177 lb [facility] ([facility] , ) Body height 66 in 66 in [facility] ([facility] , ) Body mass index 28.6 kg/m2 28.6 kg/m2 [facility] (S t (BMI) [Ratio] [facility], ) Diastolic blood 72 mm[Hg] 72 mm[Hg] [facility] (S t pressure [facility] , ) Systolic blood 140 mm[Hg] 140 mm[Hg] [facility] (St pressure [facility] , ) Body weight 177 lb 177 lb [facility] ([facility] , ) Body height 66 in 66 in [facility] ([facility]) Body mass index 28.6 kg/m2 28.6 kg/m2 [facility] (S t (BMI) [Ratio] [facility], ) Diastolic blood 72 mm[Hg] 72 mm[Hg] [facility] (S t pressure [facility]) Systolic blood 140 mm[Hg] 140 mm[Hg] [facility] ([facility] , ) Body weight 177 lb 177 lb [facility] ([facility]) Body height 66 in 66 in [facility] ([facility]) Heart rate 87 /min 87 /min [facility] ([facility]) Inhaled oxygen 94 % 94 % [facility] ([facility], ) Body mass index 28.6 kg/m2 28.6 kg/m2 [facility] (S t (BMI) [Ratio] [facility], ) Diastolic blood 88 mm[Hg] 88 mm[Hg] [facility] (S t pressure [facility]) Systolic blood 140 mm[Hg] 140 mm[Hg] [facility] ([facility]) Body weight 177 lb 177 lb [facility] ([facility]) Body height 66 in 66 in [facility] ([facility]) Heart rate 87 /min 87 /min [facility] ([facility]) Inhaled oxygen 94 % 94 % [facility] ([facility], ) Body mass index 28.6 kg/m2 28.6 kg/m2 [facility] (S t (BMI) [Ratio] [facility], ) Diastolic blood 88 mm[Hg] 88 mm[Hg] [facility] (S t pressure [facility]) Systolic blood 140 mm[Hg] 140 mm[Hg] [facility] ([facility] , ) Body weight 177 lb 177 lb [facility] ([facility]) Body height 66 in 66 in [facility] ([facility]) Heart rate 87 /min 87 /min [facility] ([facility]) Inhaled oxygen 94 % 94 % [facility] ([facility], ) Body mass index 28.6 kg/m2 28.6 kg/m2 [facility] (S t (BMI) [Ratio] [facility], ) Diastolic blood 88 mm[Hg] 88 mm[Hg] [facility] (S t pressure [facility]) Systolic blood 140 mm[Hg] 140 mm[Hg] [facility] (St [facility]) Body weight 177 lb 177 lb [facility] ([facility]) Body height 66 in in [facility] ([facility]) Body mass index 29.4 kg/m2 29.4 kg/m2 [facility] (S t (BMI) [Ratio] [facility], ) Diastolic blood 68 mm[Hg] 68 mm[Hg] [facility] (S t pressure [facility]) Systolic blood 160 mm[Hg] 160 mm[Hg] [facility] (St [facility]) Body weight 182 lb 182 lb [facility] ([facility]) Body height 66 in in [facility] ([facility]) Body mass index 29.4 kg/m2 29.4 kg/m2 [facility] (S t (BMI) [Ratio] [facility], ) Diastolic blood 68 mm[Hg] 68 mm[Hg] [facility] (S t pressure [facility]) Systolic blood 160 mm[Hg] 160 mm[Hg] [facility] ([facility]) Body weight 182 lb 182 lb [facility] ([facility]) Body height 66 in in [facility] ([facility]) Body mass index 29.4 kg/m2 29.4 kg/m2 [facility] (S t (BMI) [Ratio] [facility], ) Diastolic blood 68 mm[Hg] 68 mm[Hg] [facility] (S t pressure [facility]) Systolic blood 160 mm[Hg] 160 mm[Hg] [facility] ([facility]) Body weight 182 lb 182 lb [facility] ([facility]) Body height 66 in 66 in [facility] ([facility]) Body mass index 30 kg/m2 30 kg/m2 [facility] (S t (BMI) [Ratio] [facility], ) Diastolic blood 76 mm[Hg] 76 mm[Hg] [facility] (S t pressure [facility]) Systolic blood 134 mm[Hg] 134 mm[Hg] [facility] ([facility]) Body weight 186 lb 186 lb [facility] ([facility]) Body height 66 in 66 in [facility] ([facility]) Body mass index 30 kg/m2 30 kg/m2 [facility] (S t (BMI) [Ratio] [facility], ) Diastolic blood 76 mm[Hg] 76 mm[Hg] [facility] (S t [facility]) Systolic blood 134 mm[Hg] 134 mm[Hg] [facility] ([facility]) Body weight 186 lb 186 lb [facility] ([facility]) Body height 66 in 66 in [facility] ([facility]) Body mass index 30 kg/m2 30 kg/m2 [facility] (S t (BMI) [Ratio] [facility], ) Diastolic blood 76 mm[Hg] 76 mm[Hg] [facility] (S t [facility]) Systolic blood 134 mm[Hg] 134 mm[Hg] [facility] ([facility]) Body weight 186 lb 186 lb [facility] ([facility]) Body height 66 in 66 in [facility] ([facility])
[2020-07-23] MEDS ORDERED: CIPROFLOXACIN HCL 0.3% OPHTH 2.5ML BOTTLE ONE (06:15)
[2020-07-23] MEDS ORDERED: KETOROLAC TROMETHAMINE 0.5% EYE DROP 1 DROP DROPS ONE (06:16)
[2020-07-23] MEDS ORDERED: TROPICAMIDE 1% OPHTH SOLN 15 ML BOTTLE ONE (06:16)
[2020-07-23] MEDS ORDERED: POVIDONE-IODINE 5% OPHTHALMIC PREP 30 ML SOLUTION ONE (06:38)
[2020-07-23] MEDS ORDERED: TETRACAINE 0.5% OPHTH SOLN 2 ML BOTTLE ONE (06:38)
[2020-07-23] MEDS ORDERED: EPINEPHrine/PF 1 MG/1 ML (1:1,000) AMPULE ONE (06:38)
[2020-07-23] MEDS ORDERED: LIDOCAINE HCL/PF 1% SDV 5ML VIAL ONE (06:38)
[2020-07-23] MEDS ORDERED: TOBRAMYCIN/DEXAMETHASONE OPHTH. OINTMENT 1 TUBE ONE (06:38)
[2020-07-23] MEDS ORDERED: CHONDROITIN SU A/HYALUR SOD 1 KIT ONE (06:41)
[2020-07-23] MEDS: PHENYLEPHRINE 2.5% OPHTH SOLN 15 ML BOTTLE OP SCH ×3 (07:15→07:25)
[2020-07-23] MEDS: KETOROLAC TROMETHAMINE 0.5% EYE DROP 1 DROP DROPS OP SCH ×3 (07:15→07:25)
[2020-07-23] MEDS: TROPICAMIDE 1% OPHTH SOLN 15 ML BOTTLE OP SCH ×3 (07:15→07:25)
[2020-07-23] MEDS: CIPROFLOXACIN HCL 0.3% OPHTH 2.5ML BOTTLE OP SCH ×3 (07:15→07:25)
[2020-07-23] MEDS ORDERED: MIDAZOLAM HCL 2 MG/2 ML SINGLE DOSE VIAL ONE (07:58)
--- NOTE | 2020-07-23 08:11 | HP ---
- Patient Scheduled date of Surgery: 07/23/20 Scheduled Surgical Procedure: Phacoemulsification and cataract extraction with PCIOL Affected Eye: Right Chief Complaint (Indication for surgery): Decreased vision affecting ADLs - Ocular History Other Eye History: Other (ARMD) Eye Medications: moxifloxacin 3/0 Previous Eye Surgery: s/p ce/pciol OS - Medical History Illnesses: COPD, Hypertension, Hypercholesterolemia Current Medications: Ambulatory Orders Simvastatin [Zocor -] 40 mg PO HS 01/12/15 Budesonide/Formeterol Fumarate [SYMBICORT 160/4.5mcg -] 2 inh PO DAILY 07/01/20 Olmesartan Medoxomil [Benicar (Nf)] 40 mg PO DAILY 07/01/20 Tiotropium Br/Olodaterol HCl [Stiolto Respimat Inhal [place]] 1 puff IH DAILY 1 Allergies/Adverse Reactions: Allergies Allergy/AdvReac Type Severity Reaction Status Date / Time No Known Allergies Allergy Verified 07/23/20 07:19 Ocular Examination - Best Corrected Visual Acuity Distance: Right eye: 20/50 Distance: Left eye: 20/40-2 - External/Slit Lamp Examination Abnormalities: none - Intraocular Pressure Intraocular Pressure (mm/Hg) - Right eye: 19 Intraocular Pressure (mm/Hg)-Left eye: 16 - Lens Lens: 2+ NS 1+ cortical change - Vitreous/Retina Vitreous/Retina: C:D 0.15 ppa m mottled v/p wnl - Special Examination M - Right eye: +2.25-0.50 x 075 M - Left eye: +0.25-0.75 x 095 K - Right eye: 44/44.29 x 180 K - Left eye: 43.75/44 x 170 AL - Right eye: 23.48 AL - Left eye: 23.15 IOL bag: +21.0 AUOOTO IOL sulcus: +20.0 MN60 AC IOL AC: +18.0 MTA 4UO - Impression Impression: Cataract Right Eye - Plan Plan: Phacoemulsification and cataract extraction - IOL Right eye Post-hospital care will be provided in office on: 07/24/20
--- NOTE | 2020-07-23 08:12 | HP ---
History & Physical Update - History History: No Change - Physical Physical: No Change - Assessment Assessment: No Change - Plan Plan: No Change (H and P reivewed from 06/30/[address] Perrin no changes)
[2020-07-23] MEDS ORDERED: TETRACAINE 0.5% OPHTH SOLN 2 ML BOTTLE OD ONE (08:24)
[2020-07-23] MEDS ORDERED: POVIDONE-IODINE 5% OPHTHALMIC PREP 30 ML SOLUTION OD ONE (08:26)
[2020-07-23] MEDS ORDERED: CHONDROITIN SU A/HYALUR SOD 1 KIT IO ONE (08:32)
[2020-07-23] MEDS ORDERED: BSS (NA/CA/MG/K) BALANCED SALT SOLUTION OPHTH SOLN 15 ML BOTTLE OD ONE (08:32)
[2020-07-23] MEDS ORDERED: LIDOCAINE HCL 1% PRESERVATIVE FREE - 30ML VIAL IO ONE (08:32)
[2020-07-23] MEDS ORDERED: EPINEPHrine/PF 1 MG/1 ML (1:1,000) AMPULE SQ ONE (08:40)
[2020-07-23] MEDS ORDERED: FLUMAZENIL 0.5 MG/5 ML VIAL ONE (08:47)
[2020-07-23] MEDS ORDERED: TOBRAMYCIN/DEXAMETHASONE OPHTH. OINTMENT 1 TUBE OD ONE (08:51)
--- NOTE | 2020-07-23 09:05 | OP ---
Ophthalmology Operative Note Pre-Operative Diagnosis: Cataract Affected Eye: Right Operation: Phacoemulsification and cataract extraction with PCIOL Findings: Nuclear sclerotic cataract right eye Post-Operative Diagnosis: Same as Pre-op Graphic Pre Press Trades Worker: None Anesthesiologist: Elijah Roe Anesthesia: Topical Specimens Removed: none Estimated blood loss: < 1 cc Drains & Tubes with Location: none Operative Report Dictated: Yes
[2020-07-23 09:45] VITALS: BP 123/65; PULSE 83; TEMP 97.9
--- NOTE | 2020-07-24 12:46 | OP ---
DATE OF OPERATION: 07/23/2020 DATE OF DICTATION: 07/23/2020 PREOPERATIVE DIAGNOSIS: Nuclear sclerotic cataract, right eye. POSTOPERATIVE DIAGNOSIS: Nuclear sclerotic cataract, right eye. PROCEDURE: Phacoemulsification and cataract extraction with insertion of posterior chamber intraocular lens, right eye. SURGEON: Vanesa Morales MD ENVIRONMENTAL EMERGENCIES ASSISTANT: None. ANESTHESIA: Topical. ANESTHESIOLOGIST: Roger Roe MD OPERATIVE PROCEDURE: The patient received Tetracaine eye drops and was gently sedated and prepped and draped in the usual sterile fashion so as to expose only the right eye. Ophthalmic Betadine was instilled into the inferior fornix and lashes were taped out of the surgical field. An eyelid speculum was placed into the right eye. Paracentesis was made in superior temporal clear cornea at the limbus. Then 0.5 mL of nonpreserved lidocaine 1% was injected into the anterior chamber and then 1 mL of dilute epinephrine 1:10,000 was injected into the anterior chamber to improve pupillary dilation. Viscoelastic material was instilled into the anterior chamber via the paracentesis. A 2.4-mm keratome blade was then used to create the main incision in temporal clear cornea at the limbus. A continuous curvilinear capsulorhexis was performed using a cystotome and Utrata forceps. Hydrodissection of the lens cortex was performed using BSS on a cannula until the nucleus was noted to be freely rotating. The phacoemulsification tip was then inserted via the main wound and used to scope 2 perpendicular grooves into the lens nucleus. The nucleus was cracked into 4 quadrants. Each quadrant was lifted out of the capsule into the iris plane and individually phacoemulsified. The remaining cortical material was then aspirated using the irrigation/aspiration port. The capsular bag was inflated using ProVisc and a preloaded AcrySof lens model [id number] power +21.0 diopters was injected into the capsular bag. It was centered using a Sinskey hook. The residual viscoelastic material was removed from the anterior chamber using irrigation and aspiration. The wound edges were hydrated using BSS. The wound was tested for leakage and was found to be watertight. Tobradex ointment was placed in the eye, and the speculum was removed from the eye, and the eyelid was closed. A sterile dressing and shield were placed over the eye. The patient was transferred to the recovery room in stable condition, told to follow up in 1 day. VANESA MORALES M.D. [id number]
== END 2020-07-23 09:57 | disposition home or self-care (01) ==
LOC: JASU-SURG 04:38
PROVIDERS: ATTEND Ophthalmology
PROC: 08RJ3JZ Replacement of Right Lens with Synthetic Substitute, Percutaneous Approach (ICD-10-PCS; principal; 2020-07-23 08:30)
DX: H25.11 Age-related nuclear cataract, right eye (principal)

== ENCOUNTER 2022-03-20 11:49 | Observation (INO) | payer OTHER, BC ==
[2022-03-20 12:44] VITALS: BMI 29.6
[2022-03-20 13:43] LABS: INR 0.96 (0.83-1.09)
[2022-03-20 13:45] LABS: ACTIVATED PTT 30.7 SECONDS (25.2-36.5)
[2022-03-20 14:05] LABS: ALBUMIN 4.3 g/dl (3.4-5.0); BILIRUBIN,TOTAL 1.9 mg/dl (0.2-1); CALCIUM 9.5 mg/dl (8.5-10); MAGNESIUM 2.1 mg/dL (1.8-2.4); PHOSPHOROUS 3.1 mg/dl (2.5-4.9); TOT PROT 7.2 g/dl (6.4-8.2)
[2022-03-20 14:49] LABS: HEMATOCRIT 44.7 % (35.4-49); HEMOGLOBIN 15.9 G/dL (11.7-16.9); MCH 29.8 pg (25.7-33.7); MCHC 35.5 g/dl (32.0-35.9); MEAN CELL VOLUME 83.9 fl (80-96); MEAN PLT VOLUME 8.5 fl (7.5-11.1); PLATELET COUNT 201.2 10^3/uL (134-434); RBC 5.33 10^6/uL (4.00-5.60); RDW 14.8 % (11.9-15.9); WHITE BLOOD COUNT 7.6 10^3/uL (4.0-10.8)
[2022-03-20 14:55] LABS: EPITHELIAL CELLS FEW /hpf
[2022-03-20] MEDS ORDERED: DIPHTH,PERTUSS(ACELL),TET 0.5 ML DISP.SYRIN IM ONE ×2 (14:57→16:35)
[2022-03-20] MEDS ORDERED: SODIUM CHLORIDE 0.45% 1,000 ML IV SCH (17:15)
[2022-03-20] MEDS ORDERED: BUDESONIDE/FORMETEROL FUMARATE 160/4.5 mcg INHALER IH SCH (22:00)
[2022-03-20] MEDS ORDERED: ATORVASTATIN CA 20 MG TABLET (FP) PO SCH (22:00)
[2022-03-20] MEDS ORDERED: MELATONIN 5 MG TABLETS PO PRN (22:43)
[2022-03-21] MEDS ORDERED: LISINOPRIL 20 MG TABLET PO SCH (10:00)
[2022-03-21 10:55] VITALS: BP 133/87; PULSE 78; TEMP 97.6
[2022-03-21 17:02] LABS: CALCIUM 8.8 mg/dl (8.5-10); CREATININE 0.9 mg/dl (0.55-1.3)
[2022-03-21 17:37] LABS: HEMATOCRIT 42.5 % (35.4-49); HEMOGLOBIN 14.8 G/dL (11.7-16.9); MCH 29.6 pg (25.7-33.7); MCHC 34.8 g/dl (32.0-35.9); MEAN CELL VOLUME 84.9 fl (80-96); MEAN PLT VOLUME 9.9 fl (7.5-11.1); PLATELET COUNT 160.5 10^3/uL (134-434); RDW 15.2 % (11.9-15.9); WHITE BLOOD COUNT 6.6 10^3/uL (4.0-10.8)
== END 2022-03-21 13:25 | disposition home or self-care (01) ==
LOC: FER 11:49 → FM/S 16:37 → INTOOBSV 16:37
PROVIDERS: ADMIT Internal Medicine; ATTEND Internal Medicine
PROC: 3E0234Z Introduction of Serum, Toxoid and Vaccine into Muscle, Percutaneous Approach (ICD-10-PCS; principal; 2022-03-20)
PROC: 3E0337Z Introduction of Electrolytic and Water Balance Substance into Peripheral Vein, Percutaneous Approach (ICD-10-PCS; 2022-03-20)
DX: S62.605A Fracture of unspecified phalanx of left ring finger, initial encounter for closed fracture (principal); S00.83XA Contusion of other part of head, initial encounter; I10 Essential (primary) hypertension; E78.5 Hyperlipidemia, unspecified; J44.9 Chronic obstructive pulmonary disease, unspecified; Z85.51 Personal history of malignant neoplasm of bladder; J18.9 Pneumonia, unspecified organism; R55 Syncope and collapse; W10.9XXA Fall (on) (from) unspecified stairs and steps, initial encounter; Y93.89 Activity, other specified; Y92.89 Other specified places as the place of occurrence of the external cause; Z87.891 Personal history of nicotine dependence
CPT/HCPCS: 0241U-QW; 36415; 70450-TC; 70486-TC; 71046-TC-FY; 72125-TC; 72170-TC-FY; 73030-TC-RT-FY; 73140-TC-LT-FY; 80048; 80053; 81003; 81015; 82550; 82553; 83735; 84100; 84439; 84443; 84484; 85027; 85610; 85730; 86850; 86900; 86901; 87086; 90471; 90715; 93005; 96360; 99285-25; G0378

== ENCOUNTER 2022-04-06 08:56 | Emergency (ER) | payer OTHER, BC ==
[2022-04-06 09:08] VITALS: BP 167/85; PULSE 90; TEMP 98.7; BMI 30.5
[2022-04-06] MEDS ORDERED: MECLIZINE HCL 25 MG TABLET (FP) PO ONE (09:32)
[2022-04-06] MEDS ORDERED: MECLIZINE HCL 25 MG TABLET (FP) ONE (09:43)
== END 2022-04-06 10:58 | disposition home or self-care (01) ==
LOC: FER 08:56
DX: R42 Dizziness and giddiness (principal)
CPT/HCPCS: 99283-25

== ENCOUNTER 2022-07-18 14:47 | Emergency (ER) | payer OTHER, BC ==
[2022-07-18 15:09] VITALS: BP 138/69; BMI 31.1
[2022-07-18] MEDS ORDERED: SODIUM CHLORIDE 1,000 ML IV SCH (16:45)
[2022-07-18 16:59] LABS: HEMATOCRIT 45.7 % (35.4-49); HEMOGLOBIN 15.5 GM/dL (11.7-16.9); MCH 28.5 pg (25.7-33.7); MEAN PLT VOLUME 8.4 fl (7.5-11.1); PLATELET COUNT 195 10^3/uL (134-434); RBC 5.44 M/mm3 (4.00-5.60); RDW 14.3 % (11.9-15.9); WHITE BLOOD COUNT 6.9 K/mm3 (4.0-10.0)
[2022-07-18 17:04] LABS: URINE APPEARANCE CLEAR; URINE BILIRUBIN NEGATIVE (NEGATIVE); URINE COLOR YELLOW; URINE GLUCOSE (UA) NEGATIVE (NEGATIVE); URINE KETONE NEGATIVE (NEGATIVE); URINE LEUK ESTERASE NEGATIVE (NEGATIVE); URINE NITRITE NEGATIVE (NEGATIVE); URINE PROTEIN NEGATIVE (NEGATIVE); URINE UROBILINOGEN 0.2 mg/dL (0.2-1.0)
[2022-07-18 17:24] LABS: ALBUMIN 3.9 g/dl (3.4-5.0); BLOOD UREA NITROGEN 19.5 mg/dL (7-18); CALCIUM 8.8 mg/dL (8.5-10.1)
[2022-07-18 17:27] LABS: CREATININE 1.2 mg/dL (0.55-1.3)
[2022-07-18 17:29] LABS: TOT PROT 6.9 g/dl (6.4-8.2)
[2022-07-18 19:16] VITALS: PULSE 91
[2022-07-18 21:04] VITALS: RESP 20; TEMP 98.4
== END 2022-07-18 21:04 | disposition home or self-care (01) ==
LOC: JER 14:47
DX: U07.1 COVID-19 (principal)
CPT/HCPCS: 0241U-QW; 36415; 71046-TC-FY; 80053; 81003; 82550; 82553; 84484; 85027; 87086; 93005; 93010; 99285-25

== ENCOUNTER 2023-06-05 04:10 | Day surgery (SDC) | payer OTHER, BC ==
[2023-05-31 16:46] VITALS: BMI 29.6
[2023-06-05] MEDS ORDERED: BUPIVACAINE HCL/PF 0.5% (5MG/ML) 10 ML VIAL ONE (11:14)
[2023-06-05] MEDS ORDERED: LIDOCAINE HCL 1%, 10 MG/ML (20ML VIAL) ONE (11:14)
[2023-06-05] MEDS ORDERED: PROPOFOL 20 ML ONE (11:28)
[2023-06-05] MEDS ORDERED: SUCCINYLCHOLINE CHLORIDE 200 MG/10 ML SYRINGE ONE (11:28)
[2023-06-05] MEDS ORDERED: MIDAZOLAM HCL 2 MG/2 ML SINGLE DOSE VIAL ONE (11:28)
[2023-06-05] MEDS ORDERED: ceFAZolin SODIUM 1 GM VIAL IVPB ONE (11:48)
[2023-06-05] MEDS ORDERED: ONDANSETRON 4 MG/2 ML VIAL ONE (11:49)
[2023-06-05] MEDS ORDERED: ceFAZolin SODIUM 1 GM VIAL ONE (11:51)
[2023-06-05] MEDS ORDERED: LIDOCAINE HCL 1%, 10 MG/ML (50 mL VIAL) INF ONE (11:57)
[2023-06-05] MEDS ORDERED: BUPIVACAINE HCL/PF 0.5% (5 MG/ML) 30 ML VIAL IJ ONE (11:57)
[2023-06-05] MEDS ORDERED: BACITRACIN ZINC 15 GM TUBE TOPICAL OINTMENT ONE (12:08)
[2023-06-05] MEDS ORDERED: BACITRACIN 0.9 GM PACKET TP ONE (12:15)
[2023-06-05] MEDS ORDERED: ALBUTEROL SO4 0.083% IH SOL 2.5 MG/3 ML VIAL.NEB. NEB ONE (13:16)
[2023-06-05 15:48] VITALS: RESP 20; TEMP 97.5
[2023-06-05 16:01] VITALS: BP 110/80; PULSE 67
== END 2023-06-05 15:25 | disposition home or self-care (01) ==
LOC: JASU-SURG 04:10
PROVIDERS: ATTEND Surgery
PROC: 0JB70ZZ Excision of Back Subcutaneous Tissue and Fascia, Open Approach (ICD-10-PCS; principal; 2023-06-05 10:30)
DX: L72.0 Epidermal cyst (principal)
CPT/HCPCS: 88304-TC; 94760

== ENCOUNTER 2024-03-26 11:53 | Inpatient (IN) | payer OTHER, BC ==
[2024-03-26 13:18] LABS: VENOUS BASE EXCESS -3.2 mmol/L (-2-2); VENOUS O2 SATURATION 64.6 % (70-80); VENOUS PCO2 36.3 mmHg (38-52); VENOUS PH 7.384 (7.310-7.410)
[2024-03-26 13:22] LABS: BASO % 0.4 % (0-2.0); EOS % 0.2 % (0-4.5); HEMATOCRIT 43.6 % (35.4-49); HEMOGLOBIN 14.7 GM/dL (11.7-16.9); MCH 28.7 pg (25.7-33.7); MCHC 33.7 g/dl (32.0-35.9); MEAN CELL VOLUME 85.1 fl (80-96); MEAN PLT VOLUME 7.4 fl (7.5-11.1); MONO % 7.2 % (3.8-10.2); NEUT % 76.2 % (42.8-82.8); PLATELET COUNT 209 10^3/uL (134-434); RBC 5.12 M/mm3 (4.00-5.60); RDW 14.6 % (11.9-15.9); WHITE BLOOD COUNT 9.7 K/mm3 (4.0-10.0)
[2024-03-26] MEDS ORDERED: AZITHROMYCIN IVPB 500 MG/250 ML BAG IVPB ONE (13:45)
[2024-03-26] MEDS: AZITHROMYCIN IVPB 500 MG in DEXTROSE 5%-WATER - 250 ML IVPB ONE (13:45)
[2024-03-26 13:47] LABS: ALBUMIN 3.2 g/dl (3.4-5.0); BLOOD UREA NITROGEN 29.9 mg/dL (7-18); CALCIUM 8.3 mg/dL (8.5-10.1)
[2024-03-26 13:52] LABS: BILIRUBIN,TOTAL 1.4 mg/dL (0.2-1); TOT PROT 6.4 g/dl (6.4-8.2)
[2024-03-26 13:56] LABS: N-TERMINAL BNP 98.8 pg/ml (5-450)
[2024-03-26 13:57] LABS: CREATININE 1.2 mg/dL (0.55-1.3)
[2024-03-26] MEDS ORDERED: ATORVASTATIN CA 20 MG TABLET (FP) ONE (21:25)
[2024-03-26] MEDS ORDERED: methylPREDNISolone NA SUCC 125 MG/2 ML VIAL ONE (21:25)
[2024-03-26] MEDS: methylPREDNISolone NA SUCC 125 MG/2 ML VIAL IVPUSH ONE (21:35)
[2024-03-26] MEDS: ATORVASTATIN CA 20 MG TABLET (FP) PO SCH (21:40)
[2024-03-26] MEDS: BUDESONIDE/FORMETEROL FUMARATE 160/4.5 mcg INHALER IH SCH (21:40)
[2024-03-27] MEDS ORDERED: methylPREDNISolone NA SUCC 40 MG/1 ML VIAL ONE ×3 (01:36→10:44)
[2024-03-27] MEDS: methylPREDNISolone NA SUCC 40 MG/1 ML VIAL IVPUSH SCH (01:47)
[2024-03-27 07:43] LABS: BASO % 0.1 % (0-2.0); HEMATOCRIT 42.6 % (35.4-49); HEMOGLOBIN 14.6 GM/dL (11.7-16.9); LYMPH % 15.5 % (8-40); MCHC 34.3 g/dl (32.0-35.9); MEAN CELL VOLUME 84.7 fl (80-96); MEAN PLT VOLUME 7.6 fl (7.5-11.1); NEUT % 82.4 % (42.8-82.8); PLATELET COUNT 216 10^3/uL (134-434); RBC 5.03 M/mm3 (4.00-5.60); RDW 14.4 % (11.9-15.9); WHITE BLOOD COUNT 5.4 K/mm3 (4.0-10.0)
[2024-03-27 07:54] LABS: POTASSIUM 4.6 mmol/L (3.5-5.1)
[2024-03-27 07:58] LABS: ALBUMIN 2.9 g/dl (3.4-5.0); BLOOD UREA NITROGEN 31.9 mg/dL (7-18); CALCIUM 8.3 mg/dL (8.5-10.1)
[2024-03-27 08:01] LABS: CREATININE 1.2 mg/dL (0.55-1.3)
[2024-03-27 08:03] LABS: BILIRUBIN,TOTAL 1.1 mg/dL (0.2-1); TOT PROT 6.2 g/dl (6.4-8.2)
[2024-03-27] MEDS ORDERED: LOSARTAN POTASSIUM 50 MG TABLET ONE (10:41)
[2024-03-27] MEDS ORDERED: ENOXAPARIN NA (PORCINE) 40 MG/0.4 ML DISP.SYRIN SQ ONE (10:41)
[2024-03-27] MEDS ORDERED: ALBUTEROL SO4 2.5/IPRATROPIUM 0.5 INH SOL 3 ML VIAL.NEB. NEB ONE (10:41)
[2024-03-27] MEDS ORDERED: CEFTRIAXONE 1 GM/50 ML BAG ONE ×2 (10:42→12:41)
[2024-03-27] MEDS: ALBUTEROL SO4 2.5/IPRATROPIUM 0.5 INH SOL 3 ML VIAL.NEB. NEB PRN (11:25)
[2024-03-27] MEDS: ENOXAPARIN NA (PORCINE) 40 MG/0.4 ML DISP.SYRIN SQ SCH (11:25)
[2024-03-27] MEDS: LOSARTAN POTASSIUM 50 MG TABLET PO SCH (11:25)
[2024-03-27] MEDS: AZITHROMYCIN IVPB 250 MG in DEXTROSE 5%-WATER - 250 ML IVPB SCH (11:25)
[2024-03-27] MEDS ORDERED: ALBUTEROL SO4 0.083% IH SOL 2.5 MG/3 ML VIAL.NEB. NEB PRN (11:41)
[2024-03-27] MEDS: CEFTRIAXONE 1 GM in DEXTROSE 5%-WATER - 50 ML IVPB SCH (12:41)
[2024-03-27] MEDS: REMDESIVIR 200 MG in SODIUM CHLORIDE 250 ML IVPB ONE (14:40)
[2024-03-27] MEDS: ALBUTEROL SO4 2.5/IPRATROPIUM 0.5 INH SOL 3 ML VIAL.NEB. NEB SCH (14:40)
[2024-03-27 17:23] VITALS: BMI 28.7
[2024-03-28 07:56] LABS: POTASSIUM 4.3 mmol/L (3.5-5.1)
[2024-03-28 07:59] LABS: ALBUMIN 2.9 g/dl (3.4-5.0); BLOOD UREA NITROGEN 36.6 mg/dL (7-18); CALCIUM 8.7 mg/dL (8.5-10.1)
[2024-03-28 08:03] LABS: CREATININE 0.9 mg/dL (0.55-1.3)
[2024-03-28 08:04] LABS: BASO % 0.1 % (0-2.0); HEMATOCRIT 42.6 % (35.4-49); HEMOGLOBIN 14.8 GM/dL (11.7-16.9); LYMPH % 10.8 % (8-40); MCHC 34.7 g/dl (32.0-35.9); MEAN CELL VOLUME 83.6 fl (80-96); MONO % 4.5 % (3.8-10.2); NEUT % 84.6 % (42.8-82.8); PLATELET COUNT 242 10^3/uL (134-434); RDW 14.3 % (11.9-15.9)
[2024-03-28 08:05] LABS: BILIRUBIN,TOTAL 0.7 mg/dL (0.2-1); TOT PROT 6.4 g/dl (6.4-8.2)
[2024-03-28] MEDS: REMDESIVIR 100 MG in SODIUM CHLORIDE 250 ML IVPB SCH (14:54)
[2024-03-30] MEDS ORDERED: ALBUTEROL SO4 0.083% IH SOL 2.5 MG/3 ML VIAL.NEB. NEB PRN (18:32)
[2024-03-30] MEDS: ALBUTEROL SO4 2.5/IPRATROPIUM 0.5 INH SOL 3 ML VIAL.NEB. NEB SCH (21:01)
[2024-03-30] MEDS: ATORVASTATIN CA 20 MG TABLET (FP) PO SCH (21:47)
[2024-03-31] MEDS: BUDESONIDE/FORMETEROL FUMARATE 160/4.5 mcg INHALER IH SCH (01:44)
[2024-03-31] MEDS: methylPREDNISolone NA SUCC 40 MG/1 ML VIAL IVPUSH SCH (01:44)
[2024-03-31] MEDS: CEFTRIAXONE 1 GM in DEXTROSE 5%-WATER - 50 ML IVPB SCH (09:28)
[2024-03-31] MEDS: LOSARTAN POTASSIUM 50 MG TABLET PO SCH (09:28)
[2024-03-31] MEDS: ENOXAPARIN NA (PORCINE) 40 MG/0.4 ML DISP.SYRIN SQ SCH (09:28)
[2024-03-31] MEDS ORDERED: AZITHROMYCIN IVPB 250 MG in DEXTROSE 5%-WATER - 250 ML IVPB SCH (10:00)
[2024-03-31 10:18] LABS: HEMOGLOBIN 14.6 GM/dL (11.7-16.9); LYMPH % 7.1 % (8-40); MCH 28.8 pg (25.7-33.7); MCHC 34.7 g/dl (32.0-35.9); MEAN PLT VOLUME 7.7 fl (7.5-11.1); MONO % 4.9 % (3.8-10.2); PLATELET COUNT 291 10^3/uL (134-434); RBC 5.05 M/mm3 (4.00-5.60); RDW 14.8 % (11.9-15.9); WHITE BLOOD COUNT 8.3 K/mm3 (4.0-10.0)
[2024-03-31 10:41] LABS: POTASSIUM 4.6 mmol/L (3.5-5.1)
[2024-03-31 10:44] LABS: CALCIUM 8.4 mg/dL (8.5-10.1)
[2024-03-31 10:45] LABS: BLOOD UREA NITROGEN 35.9 mg/dL (7-18)
[2024-03-31 10:48] LABS: CREATININE 1.1 mg/dL (0.55-1.3)
[2024-03-31 10:49] LABS: TOT PROT 6.1 g/dl (6.4-8.2)
[2024-03-31 10:50] LABS: BILIRUBIN,TOTAL 1.3 mg/dL (0.2-1)
[2024-03-31] MEDS: REMDESIVIR 100 MG in SODIUM CHLORIDE 250 ML IVPB SCH (12:29)
[2024-03-31 15:20] VITALS: RESP 18
[2024-04-01 13:27] VITALS: BP 136/76; PULSE 104; TEMP 97.8
== END 2024-04-01 14:50 | disposition home or self-care (01) | DRG 177 ==
LOC: JER 11:53 → JERBED 13:17 → J4W 03-27 15:47 → J6S 03-30 18:36
PROVIDERS: ADMIT Internal Medicine; ATTEND Internal Medicine
PROC: XW033E5 Introduction of Remdesivir Anti-infective into Peripheral Vein, Percutaneous Approach, New Technology Group 5 (ICD-10-PCS; principal; 2024-03-27)
DX: U07.1 COVID-19 (principal); J18.9 Pneumonia, unspecified organism; J96.01 Acute respiratory failure with hypoxia; J44.1 Chronic obstructive pulmonary disease with (acute) exacerbation; I10 Essential (primary) hypertension; E78.5 Hyperlipidemia, unspecified; R59.0 Localized enlarged lymph nodes; R91.1 Solitary pulmonary nodule; Z99.81 Dependence on supplemental oxygen
CPT/HCPCS: 0241U-QW; 36415; 71045-TC-FY; 80053; 82803; 83880; 84484; 85025; 86140; 87040; 87899; 93005; 93010; 94640; 97116-GP; 97162-GP; 99285-25; J0248